=== PATIENT | female | born 1960 | race Caucasian/White ===

== ENCOUNTER 2017-10-11 20:13 | Emergency (ER) | payer OTHER ==
[~2017-10-11] VITALS: Ht 175.3 cm; Wt 101.2 kg
[~2017-10-11 20:13] MED LIST: ACTOS; ALBIPROI; ALBIPROI INH; ALBU.083IS; ALBU.083IS IH; ALBU3IS INH; ALBU90I INH; ALBU90OI; ALBU90OI INH; AMIT10 PO; AMOCLA875 PO; AMOX500 PO; ASPI325 PO; ASPI81EC; ASPI81EC PO; ATOR80 PO; AZIT250 PO; Albuterol Inhaler IH; Amitriptyline H10 MG PO; Aspirin EC81 MG PO; Bactrim Ds Tab1 EACH PO; CALCAVITDA PO; CARV6.25 PO; CEPH500 PO; CIPR250 PO; CIPR500 PO; CLOP75 PO; CORAL CALCIUM; CYCL10 PO; DIABETIC MEDICATIONS PO; DIAZ10 PO; DIAZ2 PO; DIAZ5 PO; DIPATR PO; DIPATRL PO; DIPH25 PO; DOCU100 PO; DULO30; DULO30 PO; DULO60 PO; Diflucan100 MG PO; Duoneb 2.5-0.5 M3 ML INH; FAMO20 PO; FERR325 PO; FISH1000 PO; FLUC100 PO; FLUC200 PO; FOLI1; FURO20 PO; FURO40 PO; GABA300 PO; GABA300T24 PO; GABA800 PO; GEMF600 PO; GLIM2 PO; GLIP10; GLIP10ER; HYDACE5 PO; HYDACE5325 PO; HYDHCL25 PO; IBUP600 PO; IBUP800 PO; INSR10I SC; INSU100I6 SC; INSUASPI SC; INSULANI SC; INSULANPEN SC; INSULIN-REGULAR; LAMZIDT PO; LEVFLO500 PO; LEVO750 PO; LISI20; LISI20 PO; LORA1; LORA1 PO; LORA2; MAGOXI400 PO; MECL25 PO; MEDR10 PO; METF500; METF850; METH10; METH10 PO; METH5; METH5 PO; METR500 PO; MONT10T PO; MULVITA; Mirapex0.5 MG PO; Mucinex600 MG PO; NAPR500; NAPR500 PO; NAPR500EC PO; NAPR550 PO; NEBI5 PO; NITR.4SL SL; NITR100 PO; NITR100CA PO; NITRSPRAY; NITRSPRAY SL; NYST100SU MT; Nitrostat0.4 MG SL; Norco 5-325 Ta1 EACH PO; ONDA4ODT MM; ONDA8 PO; OXYACE5T PO; OXYACE7.5T PO; OXYB5 PO; OXYC10ER PO; Omeprazole20 M1; PANT40 PO; PENVK500 PO; PHENA200 PO; PIOG15; PIOG30 PO; POTA10T PO; POTCHL20ER PO; PRAM.125 PO; PRAM.5 PO; PRAV10; PRED10 PO; PRED20 PO; PRED5 PO; PREDNISONE PO; PROC25S PR; PRODEXEL PO; PROM25 PO; PROM25S PR; Percocet 5-3251 EACH PO; Prednisone20 MG PO; Prilosec20 MG PO; Pyridium200 MG PO; RANI150 PO; REGULAR INSULIN SS; ROPI.25 PO; ROSU5 PO; RXDIPATR PO; RXLORA1 PO; RXNAPNA550 PO; RXOXYACE PO; Robaxin500 MG PO; SUCR1 PO; SULTRIDS PO; TIOT18 IH; TRAM50 PO; TRIA80TC TOP; Ultram50 MG PO; VENL75; VENL75ER; VICODIN; Veetids 500500 MG PO; Ventolin Soln3 ML INH; Vibramycin100 MG PO; WARF5 PO; Zithromax250 MG PO; Zofran Odt8 MG SL; Zofran4 MG PO; [UNRECOGNIZED DRUG - OTHER]; [UNRECOGNIZED DRUG - OTHER] PO; [UNRECOGNIZED DRUG - REMARK]; [UNRECOGNIZED DRUG - REMARK]
[2017-11-01] MEDS ORDERED: NITR100 PO (18:22)
[2017-11-01] MEDS ORDERED: Norco 5-325 Ta1 EACH PO (18:22)
[2018-04-10] MEDS ORDERED: METO50ER PO (10:42)
[2018-04-10] MEDS ORDERED: Nicoderm Cq1 EAC1 TD (10:42)
[2018-04-10] MEDS ORDERED: LEVO750 PO (11:43)
[2018-08-19] MEDS ORDERED: Detrol LA4 MG PO (19:55)
== END 2017-10-11 20:44 | disposition home or self-care (01) ==
LOC: ER 20:13
DX: I48.91 Unspecified atrial fibrillation (principal); I10 Essential (primary) hypertension; E11.40 Type 2 diabetes mellitus with diabetic neuropathy, unspecified; E66.01 Morbid (severe) obesity due to excess calories; Z68.32 Body mass index [BMI] 32.0-32.9, adult; J44.9 Chronic obstructive pulmonary disease, unspecified; Z86.73 Personal history of transient ischemic attack (TIA), and cerebral infarction without residual deficits; D50.9 Iron deficiency anemia, unspecified; F32.9 Major depressive disorder, single episode, unspecified; E78.1 Pure hyperglyceridemia; G51.0 Bell's palsy; G25.81 Restless legs syndrome; Z87.891 Personal history of nicotine dependence; Z98.890 Other specified postprocedural states
CPT/HCPCS: 93005; 93010; 99283

== ENCOUNTER 2017-10-30 19:14 | Emergency (ER) | payer OTHER ==
[~2017-10-30] VITALS: Ht 177.8 cm; Wt 122.5 kg
[2017-10-30 19:42] LABS: Base Excess Venous 1.4 mmol/L; Bicarbonate Venous 24.9 mmol/L (24.0-30.0); PCO2 Venous 43.3 mmHg (38-42); PO2 Venous 43.1 mmHg (38-42); pH Blood Venous 7.39 (7.34-7.37)
[2017-10-30 19:45] LABS: BASOPHILS ABSOLUTE AUTO 0.06 K/mm3 (0.00-0.23); BASOPHILS PERCENT AUTO 1 % (0-2); EOSINOPHILS ABSOLUTE AUTO 0.11 K/mm3 (0.00-0.68); EOSINOPHILS PERCENT AUTO 1 % (0-6); Hematocrit 46.8 % (33.0-51.0); Hemoglobin 15.9 g/dL (11.5-16.0); IMMATURE GRAN ABSOLUTE AUTO 0.05 K/mm3 (0.00-0.10); IMMATURE GRAN PERCENT AUTO 1 % (0-1); LYMPHOCYTES ABSOLUTE AUTO 2.55 K/mm3 (0.84-5.20); LYMPHOCYTES PERCENT AUTO 32 % (21-46); MONOCYTES ABSOLUTE AUTO 0.71 K/mm3 (0.16-1.47); MONOCYTES PERCENT AUTO 9 % (4-13); Mean Corpuscular HGB 31.4 pg (26.0-34.0); Mean Corpuscular Volume 92 fL (80-100); Mean Platelet Volume 10.3 fL (9.1-12.4); NEUTROPHILS PERCENT AUTO 57 % (41-73); Platelet Count 297 K/mm3 (150-400); RDW Standard Deviation 47.6 fL (35.1-46.3); Red Blood Cell Count 5.07 M/mm3 (3.80-5.20); White Blood Cell Count 8.08 K/mm3 (4.00-11.30)
[2017-10-30 20:05] LABS: Alanine Aminotransfer (ALT/SGP 29 U/L (12-78); Albumin, Blood 3.7 g/dL (3.4-5.0); Albumin/Globulin Ratio 0.9 (0.8-1.8); Alk Phos 96 U/L (50-136); Anion Gap 11 mmol/L (6-16); Aspartate Aminotrans (AST/SGOT 16 U/L (12-37); Bilirubin, Total 0.3 mg/dL (0.1-1.0); Blood Urea Nitrogen 10 mg/dL (8-24); Bun/Creatinine Ratio 22.3 (12.0-20.0); CO2, Blood 24 mmol/L (21-32); Calcium, Blood 8.9 mg/dL (8.5-10.1); Chloride, Blood 102 mmol/L (98-108); Creatinine, Blood 0.45 mg/dL (0.40-1.00); Glomerular Filtration Rate >60 (60-); Glucose, Blood 388 mg/dL (70-99); Potassium, Blood 3.9 mmol/L (3.5-5.5); Sodium, Blood 137 mmol/L (136-145); Total Protein, Blood 7.7 g/dL (6.4-8.2)
[2017-10-30] MEDS ORDERED: WARF6 PO (20:30)
[2017-11-01] MEDS ORDERED: Norco 5-325 Ta1 EACH PO (18:22)
[2017-11-01] MEDS ORDERED: NITR100 PO (18:22)
[2018-04-10] MEDS ORDERED: Nicoderm Cq1 EAC1 TD (10:42)
[2018-04-10] MEDS ORDERED: METO50ER PO (10:42)
[2018-04-10] MEDS ORDERED: LEVO750 PO (11:43)
[2018-08-19] MEDS ORDERED: Detrol LA4 MG PO (19:55)
== END 2017-10-30 21:37 | disposition home or self-care (01) ==
LOC: ER 19:14
PROVIDERS: Emergency Medicine
DX: E11.65 Type 2 diabetes mellitus with hyperglycemia (principal); E86.0 Dehydration; R05 Cough; E11.40 Type 2 diabetes mellitus with diabetic neuropathy, unspecified; I10 Essential (primary) hypertension; F32.9 Major depressive disorder, single episode, unspecified; F41.9 Anxiety disorder, unspecified; E66.01 Morbid (severe) obesity due to excess calories; J44.9 Chronic obstructive pulmonary disease, unspecified; I48.91 Unspecified atrial fibrillation; Z88.6 Allergy status to analgesic agent; Z88.8 Allergy status to other drugs, medicaments and biological substances; Z79.899 Other long term (current) drug therapy; Z79.01 Long term (current) use of anticoagulants; Z79.4 Long term (current) use of insulin; Z79.52 Long term (current) use of systemic steroids; F17.200 Nicotine dependence, unspecified, uncomplicated
CPT/HCPCS: 36415; 71046; 80053; 82803; 82947; 85025; 93005; 93010; 96360; 99284; J7030

== ENCOUNTER 2017-11-01 16:09 | Emergency (ER) | END 2017-11-01 19:20 | disposition home or self-care (01) ==

== ENCOUNTER 2017-11-21 11:06 | Emergency (ER) | payer OTHER ==
[~2017-11-21] VITALS: Ht 175.3 cm; Wt 99.8 kg
[~2017-11-21 11:06] MED LIST changes: +WARF6 PO
[2017-11-21 12:34] LABS: BASOPHILS ABSOLUTE AUTO 0.06 K/mm3 (0.00-0.23); BASOPHILS PERCENT AUTO 1 % (0-2); EOSINOPHILS ABSOLUTE AUTO 0.14 K/mm3 (0.00-0.68); EOSINOPHILS PERCENT AUTO 2 % (0-6); Hematocrit 42.2 % (33.0-51.0); Hemoglobin 13.5 g/dL (11.5-16.0); IMMATURE GRAN ABSOLUTE AUTO 0.03 K/mm3 (0.00-0.10); IMMATURE GRAN PERCENT AUTO 0 % (0-1); LYMPHOCYTES ABSOLUTE AUTO 2.22 K/mm3 (0.84-5.20); LYMPHOCYTES PERCENT AUTO 27 % (21-46); MONOCYTES ABSOLUTE AUTO 0.58 K/mm3 (0.16-1.47); MONOCYTES PERCENT AUTO 7 % (4-13); Mean Corpuscular HGB 30.8 pg (26.0-34.0); Mean Corpuscular Volume 96 fL (80-100); Mean Platelet Volume 10.9 fL (9.1-12.4); NEUTROPHILS ABSOLUTE AUTO 5.12 K/mm3 (1.96-9.15); NEUTROPHILS PERCENT AUTO 63 % (41-73); Platelet Count 268 K/mm3 (150-400); RDW Coefficient Variation 14.6 % (11.7-14.2); RDW Standard Deviation 50.9 fL (35.1-46.3); Red Blood Cell Count 4.39 M/mm3 (3.80-5.20); White Blood Cell Count 8.15 K/mm3 (4.00-11.30)
[2017-11-21 12:45] LABS: Alanine Aminotransfer (ALT/SGP 20 U/L (12-78); Albumin, Blood 3.4 g/dL (3.4-5.0); Alk Phos 79 U/L (50-136); Anion Gap 7 mmol/L (6-16); Aspartate Aminotrans (AST/SGOT 16 U/L (12-37); Bilirubin, Total 0.3 mg/dL (0.1-1.0); Blood Urea Nitrogen 14 mg/dL (8-24); Bun/Creatinine Ratio 28.2 (12.0-20.0); CO2, Blood 27 mmol/L (21-32); Calcium, Blood 8.6 mg/dL (8.5-10.1); Chloride, Blood 110 mmol/L (98-108); Globulin, Blood 3.5 g/dL (2.2-4.0); Glomerular Filtration Rate >60 (60-); Glucose, Blood 142 mg/dL (70-99); International Normalized Ratio 3.33; Sodium, Blood 144 mmol/L (136-145); Total Protein, Blood 6.9 g/dL (6.4-8.2)
[2017-11-21] MEDS ORDERED: GEMF600 PO (13:25)
[2017-11-21] MEDS ORDERED: GLIP5 PO (13:25)
[2017-11-21] MEDS ORDERED: MELO7.5 PO (13:25)
[2017-11-21] MEDS ORDERED: OXYB5 PO (13:26)
[2017-11-21] MEDS ORDERED: Omeprazole20 M1 (13:26)
[2017-11-21 13:57] LABS: Bilirubin, Urine Neg (Neg); Blood, Urine Neg (Neg); Glucose Qualitative, Urine Neg (Neg); Ketones, Urine Neg (Neg); Leukocyte Esterase, Urine 1+ (Neg); Nitrite, Urine Neg (Neg); Protein, Urine Neg (Neg); Urobilinogen, Urine NORM (Normal)
[2017-11-21 14:08] LABS: Appearance, Urine Clear (Clear); Color, Urine Yellow (P-Yellow)
[2017-11-21 14:09] LABS: Bacteria Few /hpf; Red Blood Cells, Urine 0-2 /hpf (0-2); Squamous Epithelial Cells Few /hpf (Few)
[2017-11-21 14:10] LABS: U Amphetamine Screen Not Detected; U Barbituate Screen Not Detected; U Benzodiazapine Screen Not Detected; U Buprenorphine Screen Not Detected; U Cannabinoids Screen Not Detected; U Cocaine Screen Not Detected; U Methadone Screen Not Detected; U Methamphetamine Screen Not Detected; U Opiates Screen Not Detected; U Oxycodone Screen Not Detected; U Phencyclidine Screen Not Detected; U Propoxyphene Screen Not Detected
[2018-04-10] MEDS ORDERED: Nicoderm Cq1 EAC1 TD (10:42)
[2018-04-10] MEDS ORDERED: METO50ER PO (10:42)
[2018-04-10] MEDS ORDERED: LEVO750 PO (11:43)
[2018-08-19] MEDS ORDERED: Detrol LA4 MG PO (19:55)
== END 2017-11-21 14:25 | disposition home or self-care (01) ==
LOC: ER 11:06
PROVIDERS: Emergency Medicine
DX: R42 Dizziness and giddiness (principal); J44.9 Chronic obstructive pulmonary disease, unspecified; E11.9 Type 2 diabetes mellitus without complications; F17.210 Nicotine dependence, cigarettes, uncomplicated; Z91.048 Other nonmedicinal substance allergy status; Z88.5 Allergy status to narcotic agent; Z79.899 Other long term (current) drug therapy; Z79.01 Long term (current) use of anticoagulants; Z79.4 Long term (current) use of insulin; Z86.73 Personal history of transient ischemic attack (TIA), and cerebral infarction without residual deficits
CPT/HCPCS: 36415; 51701; 70450; 71046; 80053; 81001; 83880; 85025; 85610; 87086; 93005; 93010; 99284

== ENCOUNTER → 2017-11-28 | Outpatient (CLI) | payer OTHER ==
[~2017-11-28] MED LIST changes: +Detrol LA4 MG PO; +GLIP5 PO; +MELO7.5 PO; +METO50ER PO; +Nicoderm Cq1 EAC1 TD
== END | disposition home or self-care (01) ==
LOC: LAB 15:15
DX: N39.0 Urinary tract infection, site not specified (principal)
CPT/HCPCS: 87077; 87086; 87186

== ENCOUNTER → 2018-01-16 | Outpatient (CLI) | payer OTHER ==
[~2018-01-16] MED LIST changes: -Detrol LA4 MG PO; -METO50ER PO; -Nicoderm Cq1 EAC1 TD
[2018-01-16 10:57] LABS: Source, Urine Clean Catch
[2018-01-16 12:44] LABS: Bilirubin, Urine Neg (Neg); Blood, Urine 4+ (Neg); Glucose Qualitative, Urine 3+ (Neg); Ketones, Urine Neg (Neg); Leukocyte Esterase, Urine 2+ (Neg); Nitrite, Urine Neg (Neg); Protein, Urine 1+ (Neg); Specific Gravity, Urine 1.025 (1.003-1.022); Urobilinogen, Urine NORM (Normal)
[2018-01-16 12:54] LABS: Appearance, Urine Cloudy (Clear); Color, Urine Yellow (P-Yellow)
[2018-01-16 13:00] LABS: Amorphous Mod (0-Heavy); Bacteria Few /hpf; Squamous Epithelial Cells Few /hpf (Few)
== END ==
LOC: LAB 09:10 → LAB SHORT 09:10
PROVIDERS: Nurse Practitioner Family
DX: R35.0 Frequency of micturition (principal)
CPT/HCPCS: 81001

== ENCOUNTER 2018-03-24 08:38 | Emergency (ER) | payer OTHER ==
[~2018-03-24] VITALS: Ht 175.3 cm; Wt 117.9 kg
[2018-03-24 09:23] LABS: BASOPHILS ABSOLUTE AUTO 0.07 K/mm3 (0.00-0.23); BASOPHILS PERCENT AUTO 1 % (0-2); EOSINOPHILS PERCENT AUTO 2 % (0-6); Hematocrit 43.1 % (33.0-51.0); Hemoglobin 14.6 g/dL (11.5-16.0); IMMATURE GRAN ABSOLUTE AUTO 0.06 K/mm3 (0.00-0.10); IMMATURE GRAN PERCENT AUTO 1 % (0-1); LYMPHOCYTES ABSOLUTE AUTO 3.58 K/mm3 (0.84-5.20); LYMPHOCYTES PERCENT AUTO 35 % (21-46); MONOCYTES ABSOLUTE AUTO 0.73 K/mm3 (0.16-1.47); MONOCYTES PERCENT AUTO 7 % (4-13); Mean Corpuscular HGB 31.5 pg (26.0-34.0); Mean Corpuscular HGB Conc 33.9 g/dL (31.5-36.5); Mean Corpuscular Volume 93 fL (80-100); Mean Platelet Volume 11.7 fL (9.1-12.4); NEUTROPHILS ABSOLUTE AUTO 5.73 K/mm3 (1.96-9.15); NEUTROPHILS PERCENT AUTO 55 % (41-73); Platelet Count 296 K/mm3 (150-400); RDW Coefficient Variation 13.4 % (11.7-14.2); RDW Standard Deviation 45.2 fL (35.1-46.3); Red Blood Cell Count 4.64 M/mm3 (3.80-5.20); White Blood Cell Count 10.37 K/mm3 (4.00-11.30)
[2018-03-24 10:05] LABS: Alanine Aminotransfer (ALT/SGP 19 U/L (12-78); Albumin, Blood 3.2 g/dL (3.4-5.0); Albumin/Globulin Ratio 0.9 (0.8-1.8); Alk Phos 86 U/L (50-136); Anion Gap 8 mmol/L (6-16); Aspartate Aminotrans (AST/SGOT 11 U/L (12-37); Bilirubin, Total 0.3 mg/dL (0.1-1.0); Blood Urea Nitrogen 8 mg/dL (8-24); Bun/Creatinine Ratio 16.8 (12.0-20.0); CO2, Blood 27 mmol/L (21-32); Calcium, Blood 8.4 mg/dL (8.5-10.1); Chloride, Blood 109 mmol/L (98-108); Creatinine, Blood 0.48 mg/dL (0.40-1.00); Globulin, Blood 3.4 g/dL (2.2-4.0); Glomerular Filtration Rate >60 (60-); Glucose, Blood 85 mg/dL (70-99); Potassium, Blood 3.6 mmol/L (3.5-5.5); Sodium, Blood 144 mmol/L (136-145); Total Protein, Blood 6.6 g/dL (6.4-8.2); Troponin I <0.015 ng/mL (0.000-0.040)
[2018-03-24] MEDS ORDERED: Prednisone20 MG PO (10:28)
== END 2018-03-24 10:59 | disposition home or self-care (01) ==
LOC: ER 08:38
PROVIDERS: Emergency Medicine
DX: J44.1 Chronic obstructive pulmonary disease with (acute) exacerbation (principal); Z91.048 Other nonmedicinal substance allergy status; Z88.6 Allergy status to analgesic agent; Z79.899 Other long term (current) drug therapy; Z79.01 Long term (current) use of anticoagulants; Z79.4 Long term (current) use of insulin; Z79.52 Long term (current) use of systemic steroids; E11.9 Type 2 diabetes mellitus without complications; J44.9 Chronic obstructive pulmonary disease, unspecified; F17.210 Nicotine dependence, cigarettes, uncomplicated
CPT/HCPCS: 36415; 71046; 80053; 82947; 84484; 85025; 93005; 93010; 94644; 96374; 99285-25; J2930

== ENCOUNTER 2018-07-12 12:15 | Emergency (ER) | payer OTHER ==
[~2018-07-12] VITALS: Ht 175.3 cm; Wt 107.0 kg
[~2018-07-12 12:15] MED LIST changes: +METO50ER PO; +Nicoderm Cq1 EAC1 TD
== END 2018-07-12 13:55 | disposition home or self-care (01) ==
LOC: ER 12:15
DX: M79.632 Pain in left forearm (principal); J44.9 Chronic obstructive pulmonary disease, unspecified; E11.9 Type 2 diabetes mellitus without complications; I48.91 Unspecified atrial fibrillation; F17.210 Nicotine dependence, cigarettes, uncomplicated; Z91.048 Other nonmedicinal substance allergy status; Z88.5 Allergy status to narcotic agent; Z79.899 Other long term (current) drug therapy; Z79.51 Long term (current) use of inhaled steroids; Z79.01 Long term (current) use of anticoagulants; Z79.4 Long term (current) use of insulin; Z86.73 Personal history of transient ischemic attack (TIA), and cerebral infarction without residual deficits; Z86.718 Personal history of other venous thrombosis and embolism
CPT/HCPCS: 29125; 93971; 99283-25

== ENCOUNTER 2018-11-24 20:11 | Emergency (ER) | payer OTHER ==
[~2018-11-24] VITALS: Ht 175.3 cm; Wt 104.3 kg
[~2018-11-24 20:11] MED LIST changes: +Detrol LA4 MG PO; +Macrobid 100 M100 MG PO
[2018-11-24 20:57] LABS: BASOPHILS ABSOLUTE AUTO 0.06 K/mm3 (0.00-0.23); BASOPHILS PERCENT AUTO 1 % (0-2); EOSINOPHILS ABSOLUTE AUTO 0.18 K/mm3 (0.00-0.68); EOSINOPHILS PERCENT AUTO 2 % (0-6); Hematocrit 42.8 % (33.0-51.0); IMMATURE GRAN ABSOLUTE AUTO 0.03 K/mm3 (0.00-0.10); IMMATURE GRAN PERCENT AUTO 0 % (0-1); LYMPHOCYTES ABSOLUTE AUTO 2.02 K/mm3 (0.84-5.20); LYMPHOCYTES PERCENT AUTO 27 % (21-46); MONOCYTES ABSOLUTE AUTO 0.78 K/mm3 (0.16-1.47); MONOCYTES PERCENT AUTO 10 % (4-13); Mean Corpuscular HGB 31.2 pg (26.0-34.0); Mean Corpuscular HGB Conc 32.7 g/dL (31.5-36.5); Mean Corpuscular Volume 95 fL (80-100); Mean Platelet Volume 11.7 fL (9.1-12.4); NEUTROPHILS ABSOLUTE AUTO 4.41 K/mm3 (1.96-9.15); NEUTROPHILS PERCENT AUTO 59 % (41-73); Platelet Count 277 K/mm3 (150-400); RDW Coefficient Variation 13.7 % (11.7-14.2); RDW Standard Deviation 48.6 fL (35.1-46.3); Red Blood Cell Count 4.49 M/mm3 (3.80-5.20); White Blood Cell Count 7.48 K/mm3 (4.00-11.30)
[2018-11-24 21:18] LABS: Troponin I <0.015 ng/mL (0.000-0.040)
[2018-11-24 21:19] LABS: Alanine Aminotransfer (ALT/SGP 26 U/L (12-78); Albumin, Blood 3.2 g/dL (3.4-5.0); Albumin/Globulin Ratio 0.9 (0.8-1.8); Alk Phos 100 U/L (50-136); Anion Gap 7 mmol/L (6-16); Aspartate Aminotrans (AST/SGOT 13 U/L (12-37); Bilirubin, Total 0.1 mg/dL (0.1-1.0); Blood Urea Nitrogen 16 mg/dL (8-24); Bun/Creatinine Ratio 26.6 (12.0-20.0); CO2, Blood 30 mmol/L (21-32); Calcium, Blood 8.7 mg/dL (8.5-10.1); Chloride, Blood 107 mmol/L (98-108); Globulin, Blood 3.6 g/dL (2.2-4.0); Glomerular Filtration Rate >60 (60-); Glucose, Blood 275 mg/dL (70-99); Potassium, Blood 3.7 mmol/L (3.5-5.5); Sodium, Blood 144 mmol/L (136-145); Total Protein, Blood 6.8 g/dL (6.4-8.2)
== END 2018-11-25 00:31 | disposition home or self-care (01) ==
LOC: ER 20:11
PROVIDERS: Emergency Medicine
DX: R07.9 Chest pain, unspecified (principal); E11.9 Type 2 diabetes mellitus without complications; J44.9 Chronic obstructive pulmonary disease, unspecified; Z86.73 Personal history of transient ischemic attack (TIA), and cerebral infarction without residual deficits; Z91.048 Other nonmedicinal substance allergy status; Z88.6 Allergy status to analgesic agent; Z79.899 Other long term (current) drug therapy; Z79.01 Long term (current) use of anticoagulants; Z79.4 Long term (current) use of insulin; F17.200 Nicotine dependence, unspecified, uncomplicated
CPT/HCPCS: 36415; 71046; 80053; 84484; 85025; 93005; 93010; 99285-25

== ENCOUNTER → 2019-02-16 | Outpatient (CLI) | payer OTHER ==
[~2019-02-16] MED LIST changes: +CEFU500T30 PO; +Coreg12.5 MG PO; +DRON400T PO; +GABA100 PO; -GABA300T24 PO; +INSULIN BASAGLAR SC; +METPRE4DP PO; +Nystatin15 GM TOP
[2019-02-17 06:53] LABS: Candida species (DNA Probe) Negative (NEGATIVE); G. vaginalis (DNA Probe) Negative (NEGATIVE); T. vaginalis (DNA Probe) Negative (NEGATIVE)
== END | disposition home or self-care (01) ==
LOC: LAB SHORT 16:50 → LAB 16:50
PROVIDERS: Obstetrics & Gynecology
DX: N76.0 Acute vaginitis (principal)
CPT/HCPCS: 87480; 87510; 87660

== ENCOUNTER 2019-03-07 16:27 | Inpatient (IN) | payer OTHER ==
[~2019-03-07] VITALS: Ht 175.3 cm; Wt 105.2 kg
[~2019-03-07 16:27] MED LIST changes: -CEFU500T30 PO; -Coreg12.5 MG PO; -DRON400T PO; -INSULIN BASAGLAR SC; -METPRE4DP PO
[2019-03-07 16:58] LABS: BASOPHILS ABSOLUTE AUTO 0.11 K/mm3 (0.00-0.23); BASOPHILS PERCENT AUTO 1 % (0-2); EOSINOPHILS ABSOLUTE AUTO 0.22 K/mm3 (0.00-0.68); EOSINOPHILS PERCENT AUTO 2 % (0-6); Hemoglobin 15.6 g/dL (11.5-16.0); IMMATURE GRAN ABSOLUTE AUTO 0.05 K/mm3 (0.00-0.10); IMMATURE GRAN PERCENT AUTO 1 % (0-1); LYMPHOCYTES ABSOLUTE AUTO 3.14 K/mm3 (0.84-5.20); LYMPHOCYTES PERCENT AUTO 30 % (21-46); MONOCYTES ABSOLUTE AUTO 1.02 K/mm3 (0.16-1.47); MONOCYTES PERCENT AUTO 10 % (4-13); Mean Corpuscular HGB 31.3 pg (26.0-34.0); Mean Corpuscular HGB Conc 33.9 g/dL (31.5-36.5); Mean Corpuscular Volume 92 fL (80-100); Mean Platelet Volume 11.5 fL (9.1-12.4); NEUTROPHILS ABSOLUTE AUTO 6.11 K/mm3 (1.96-9.15); NEUTROPHILS PERCENT AUTO 57 % (41-73); Platelet Count 317 K/mm3 (150-400); RDW Coefficient Variation 13.1 % (11.7-14.2); Red Blood Cell Count 4.98 M/mm3 (3.80-5.20); White Blood Cell Count 10.65 K/mm3 (4.00-11.30)
[2019-03-07 17:22] LABS: Alanine Aminotransfer (ALT/SGP 21 U/L (12-78); Albumin, Blood 3.8 g/dL (3.4-5.0); Alk Phos 121 U/L (50-136); Anion Gap 9 mmol/L (6-16); Aspartate Aminotrans (AST/SGOT 12 U/L (12-37); Bilirubin, Total 0.4 mg/dL (0.1-1.0); Blood Urea Nitrogen 13 mg/dL (8-24); Bun/Creatinine Ratio 16.6 (12.0-20.0); CO2, Blood 24 mmol/L (21-32); Calcium, Blood 9.2 mg/dL (8.5-10.1); Chloride, Blood 101 mmol/L (98-108); Creatinine, Blood 0.78 mg/dL (0.40-1.00); Globulin, Blood 3.9 g/dL (2.2-4.0); Glomerular Filtration Rate >60 (60-); Glucose, Blood 451 mg/dL (70-99); Magnesium, Blood 2.2 mg/dL (1.6-2.4); Potassium, Blood 4.2 mmol/L (3.5-5.5); Sodium, Blood 134 mmol/L (136-145); Total Protein, Blood 7.7 g/dL (6.4-8.2); Troponin I <0.015 ng/mL (0.000-0.040)
[2019-03-07 18:43] LABS: Prothrombin Time Results 41.3 Sec (9.7-11.5)
[2019-03-07 18:46] LABS: International Normalized Ratio 4.46
--- NOTE | 2019-03-07 21:00 | NUR ---
ASSUMED CARE RECIEVED REPORT FROM ROSE MARIE GAMEZ IN ER. PT IN AFIB RVR; RATE 100-160. PT DENIES CHEST PAIN, DIZZINESS, AND NAUSEA; PT IS NOT DIAPHORETIC. STABLE BP (SEE VS). PT HAS PATENT IV IN RIGHT AC; SITE WNL. PT ALERT AND ORIENTED X 4. BED LOW AND LOCKED, CALL LIGHT WITHIN REACH.
--- NOTE | 2019-03-08 01:46 | NUR ---
UPDATE PLACED SEIZURE PADS ON BED; PT HAS RESTLESS LEG SYNDROME, OR TURRENTS AND KEEPS KICKING HER LEGS AND HITTING SIDES OF BEDS. PT IS NOW IN NSR, WITH CONTROLLED RATE IN 80'S. DILTIAZEM IS NOW AT 10MG/HR. DOUBLE CHECKED WITH MOLDER OPERATOR, PAOLO Fatima AND SHE AGREES TO TITRATE DOWN DILTIAZEM.
[2019-03-08 03:38] LABS: BASOPHILS PERCENT AUTO 1 % (0-2); EOSINOPHILS ABSOLUTE AUTO 0.24 K/mm3 (0.00-0.68); EOSINOPHILS PERCENT AUTO 2 % (0-6); Hematocrit 43.7 % (33.0-51.0); Hemoglobin 14.4 g/dL (11.5-16.0); IMMATURE GRAN ABSOLUTE AUTO 0.05 K/mm3 (0.00-0.10); IMMATURE GRAN PERCENT AUTO 1 % (0-1); LYMPHOCYTES ABSOLUTE AUTO 3.23 K/mm3 (0.84-5.20); LYMPHOCYTES PERCENT AUTO 32 % (21-46); MONOCYTES ABSOLUTE AUTO 1.04 K/mm3 (0.16-1.47); MONOCYTES PERCENT AUTO 10 % (4-13); Mean Corpuscular HGB 30.8 pg (26.0-34.0); Mean Corpuscular Volume 94 fL (80-100); Mean Platelet Volume 11.2 fL (9.1-12.4); NEUTROPHILS ABSOLUTE AUTO 5.59 K/mm3 (1.96-9.15); NEUTROPHILS PERCENT AUTO 55 % (41-73); Platelet Count 310 K/mm3 (150-400); RDW Coefficient Variation 13.2 % (11.7-14.2); RDW Standard Deviation 45.1 fL (35.1-46.3); Red Blood Cell Count 4.67 M/mm3 (3.80-5.20); White Blood Cell Count 10.25 K/mm3 (4.00-11.30)
[2019-03-08 04:02] LABS: Anion Gap 6 mmol/L (6-16); Blood Urea Nitrogen 15 mg/dL (8-24); Bun/Creatinine Ratio 22.7 (12.0-20.0); CO2, Blood 27 mmol/L (21-32); Calcium, Blood 8.8 mg/dL (8.5-10.1); Chloride, Blood 108 mmol/L (98-108); Creatinine, Blood 0.66 mg/dL (0.40-1.00); Glomerular Filtration Rate >60 (60-); Glucose, Blood 155 mg/dL (70-99); Potassium, Blood 3.8 mmol/L (3.5-5.5); Sodium, Blood 141 mmol/L (136-145)
--- NOTE | 2019-03-08 07:00 | NUR ---
SHIFT SUMMARY PT FINALLY ASLEEP, AFTER A NIGHT FULL OF TOSSING AND TURNING; KICKING/PUNCHING THROUGHOUT NIGHT. SHE REPORTS HAVING RESTLESS LEG SYNDROME AND IT IS SEVERE. SHE CAN'T CONTROLL HERSELF FROM KICKING CONSTANTLY. PT HAS BEEN IN NSR SINCE APPROX. 0030-130. DILTIAZEM IS ON STANDBY; RATE IN THE 80'S. PT DENIED CHEST PAIN, NAUSEA, AND DIZZINESS. PT IS DIAPHORETIC FROM CONSTANTLY THRASHING. PT HAS SEVERE NUMBNESS IN BOTH FEET, AND MODERATE N/T IN HANDS. PT WILL NEED EDUCATION ON MEDICATION ADHERENCE, AND DIABETES MANAGEMENT. SHE WANTS TO LEARN SOMEWHAT, BUT IS NOT NECCESSARILY MOTIVATED TO LEARN. MED REC WILL STILL NEED TO BE FINISHED, BECAUSE SHE DOESN'T REMEMBER EVERYTHING SHE TAKES. BED LOW AND LOCKED, CALL LIGHT WITHIN REACH.
--- NOTE | 2019-03-08 08:23 | NUR ---
Echocardiogram completed.
--- NOTE | 2019-03-08 08:45 | NUR ---
PT PLEASANT COOP A/O DENIES PAIN. SOME WEAKNESS CONTINUES ON LEFT. SHAKINESS NOTED IN LEGS. PT STATES NORMAL. H/R REG, NO MURMER NOTED. SEE TELE STRIP. LUNGS CLEAR INSP, EXP WHEEZES. LOWER. ON R/A. RESP EASY, UNALBORED. BT X4 LAST BM YEST. STATES CONT OF STOOL, BUT INCONT OF URINE SINCE GIVINIG . STATES DOES KNOW AND CAN CALL IF WET. INDEPENDANT IN ROOM. BED IN LOW POSITION, CALL LITE IN REACH, CALLS APPROP.
[2019-03-08 10:24] LABS: International Normalized Ratio 3.76; Prothrombin Time Results 35.3 Sec (9.7-11.5)
--- NOTE | 2019-03-08 10:45 | NUR ---
PT ASLEEP IN CHAIR. HARD TO AWAKEN. LIGHT STERNAL RUB TO AWAKEN. PT STATES MAYBE BLOOD SUGAR TOO LOW. HARD TO KEEP AWAKE. HAD P/T ASSIST ME TO GET PT TO BED. VS 90/52, 98/58 P 73. CBG 344. REMAINS SEDATE. FALLS RIGHT BACK TO SLEEP. NOT GOOD CONTROL MUSCULARLY. ARMS PRESENT SLGHTLY FLAILING. POOR CONTROL PT STATES IS MOSTLY NORMAL FOR HER. CANNOT TELL ME HOW MUCH NEURONTIN SHE TAKES. BUT STATES IS IN JAMAL. CALLED DR ZHANG. LIKELY THAT. LEFT IS STILL WEAKER THAN RT. WANTS BALANCE MEDS MIRAPEX AND SANTURUM HELD THIS AM. CANCELLED ALL BUT S/S INSULIN THIS AM R/T PT STATES NOT TAKING REGULARLY. ONLY ONCE OR TWICE WEEKLY. DR ZHANG SUGGEST CONTINUE MONITOR. APPEARS STABLE. LIKELY NEURONTIN IS CAUSE.
--- NOTE | 2019-03-08 12:11 | NUR ---
PT SLEEPING, AWAKENS TO LIGHT STERNAL RUB. BP 118/82. R 20. POOR CONTROL CONTINUES ON ARMS. ABLE TO BRING UNDER CONTROL BETTER. FALLS BACK TO SLEEP QUICKLY.
--- NOTE | 2019-03-08 13:06 | NUR ---
PT AWAKE AGAIN, EATING LUNCH. GAVE INSULIN. TALKING. STATES FEELING BETTER.
--- NOTE | 2019-03-08 16:41 | NUR ---
Per admit trigger, I met with Luz Marina and her spouse regarding an Advanced Directive. She was tearful when I entered room and the three of us spoke for an hour about her limitations since her stroke 5 years ago. Spouse is under a great deal of stress trying to manage his own business and care for [place]. Both appeared to benefit from having someone provide theraputic listening and gentle career development counselor. Charlotte has a strong shawn and appreciated prayer and spiritual direction. We had an easy rapport. I provided my contact information for out-patient career development counselor as she is clearly experiencing grief with the loss of "who I used to be." Facilitated prayer at bedside. They did not see a need for an AD. I will remain available.
[2019-03-08] MEDS ORDERED: Coreg12.5 MG PO (17:05)
--- NOTE | 2019-03-08 17:25 | NUR ---
CALLED IN NEW RX'S TO [facility].
--- NOTE | 2019-03-08 18:40 | NUR ---
FABY REVIEWED WITH PT AND DAUGHTER. IV PULLED BY CHARGE. PT VERBALIZED UNDERSTANDING OF MEDS AND INSTRUCTIONS. DAUGHTER SIGNED FORMS. PT TO DRESS AND BE ESCORTED SHORTLY
== END 2019-03-08 18:40 | disposition home or self-care (01) | DRG 308 ==
LOC: ER 16:27 → ICUW 18:46 → ICUE 20:25
PROVIDERS: Emergency Medicine; Internal Medicine; ADMIT Internal Medicine
DX: I48.2 Chronic atrial fibrillation (principal); G92 Toxic encephalopathy; E10.40 Type 1 diabetes mellitus with diabetic neuropathy, unspecified; I10 Essential (primary) hypertension; I67.9 Cerebrovascular disease, unspecified; F32.9 Major depressive disorder, single episode, unspecified; E78.5 Hyperlipidemia, unspecified; J44.9 Chronic obstructive pulmonary disease, unspecified; E78.1 Pure hyperglyceridemia; G25.81 Restless legs syndrome; F17.200 Nicotine dependence, unspecified, uncomplicated; Z86.73 Personal history of transient ischemic attack (TIA), and cerebral infarction without residual deficits; Z88.8 Allergy status to other drugs, medicaments and biological substances; Z79.01 Long term (current) use of anticoagulants; Z79.84 Long term (current) use of oral hypoglycemic drugs; Z79.4 Long term (current) use of insulin; Z79.899 Other long term (current) drug therapy
CPT/HCPCS: 36415; 71045; 80048; 80053; 82947; 83735; 84443; 84484; 85025; 85610; 93005; 93010; 93306; 94640; 96365; 96366; 96376; 99285-25; J1815; Q0163

== ENCOUNTER → 2019-03-17 | Outpatient (CLI) | payer OTHER ==
[~2019-03-17] MED LIST changes: +CEFU500T30 PO; +Coreg12.5 MG PO; +DRON400T PO; +INSULIN BASAGLAR SC; +METPRE4DP PO
[2019-03-17 15:11] LABS: Source, Urine Clean Catch
[2019-03-17 18:02] LABS: Bilirubin, Urine Neg (Neg); Blood, Urine Neg (Neg); Glucose Qualitative, Urine 3+ (Neg); Ketones, Urine 1+ (Neg); Leukocyte Esterase, Urine 1+ (Neg); Nitrite, Urine Neg (Neg); Protein, Urine 1+ (Neg); Urobilinogen, Urine NORM (Normal)
[2019-03-17 18:30] LABS: Appearance, Urine Hazy (Clear); Color, Urine Yellow (P-Yellow)
[2019-03-17 18:31] LABS: Bacteria Mod /hpf; Red Blood Cells, Urine 0-2 /hpf (0-2); Squamous Epithelial Cells Many /hpf (Few)
[2019-03-18 09:15] LABS: Candida species (DNA Probe) Positive (NEGATIVE); G. vaginalis (DNA Probe) Positive (NEGATIVE); T. vaginalis (DNA Probe) Negative (NEGATIVE)
== END | disposition home or self-care (01) ==
LOC: LAB 14:34 → LAB SHORT 14:34
PROVIDERS: Obstetrics & Gynecology
DX: N76.0 Acute vaginitis (principal); R82.998 Other abnormal findings in urine
CPT/HCPCS: 81001; 87086; 87480; 87510; 87660

== ENCOUNTER 2019-03-21 03:30 | Emergency (ER) | payer OTHER ==
[~2019-03-21 03:30] MED LIST changes: -CEFU500T30 PO; -DRON400T PO; -INSULIN BASAGLAR SC; -METPRE4DP PO
== END 2019-03-21 04:45 | disposition left against medical advice (07) ==
LOC: ER 03:30
DX: Z53.21 Procedure and treatment not carried out due to patient leaving prior to being seen by health care provider (principal)

== ENCOUNTER 2019-03-21 10:45 | Emergency (ER) | payer OTHER ==
[~2019-03-21] VITALS: Ht 175.3 cm; Wt 104.3 kg
== END 2019-03-21 11:43 | disposition home or self-care (01) ==
LOC: ER 10:45
DX: R59.0 Localized enlarged lymph nodes (principal); Z91.048 Other nonmedicinal substance allergy status; Z88.6 Allergy status to analgesic agent; Z79.899 Other long term (current) drug therapy; Z79.01 Long term (current) use of anticoagulants; Z79.4 Long term (current) use of insulin; E11.40 Type 2 diabetes mellitus with diabetic neuropathy, unspecified; I10 Essential (primary) hypertension; F32.9 Major depressive disorder, single episode, unspecified; F41.9 Anxiety disorder, unspecified; J44.9 Chronic obstructive pulmonary disease, unspecified; Z86.73 Personal history of transient ischemic attack (TIA), and cerebral infarction without residual deficits; I48.91 Unspecified atrial fibrillation; F17.210 Nicotine dependence, cigarettes, uncomplicated
CPT/HCPCS: 93971; 99283-25

== ENCOUNTER 2019-04-06 12:25 | Emergency (ER) | payer OTHER ==
[~2019-04-06] VITALS: Ht 175.3 cm; Wt 108.9 kg
== END 2019-04-06 16:55 | disposition home or self-care (01) ==
LOC: ER 12:25
DX: M16.0 Bilateral primary osteoarthritis of hip (principal); Z91.048 Other nonmedicinal substance allergy status; Z79.899 Other long term (current) drug therapy; Z88.6 Allergy status to analgesic agent; Z79.01 Long term (current) use of anticoagulants; Z79.4 Long term (current) use of insulin; E11.9 Type 2 diabetes mellitus without complications; J44.9 Chronic obstructive pulmonary disease, unspecified; Z86.73 Personal history of transient ischemic attack (TIA), and cerebral infarction without residual deficits; Z87.891 Personal history of nicotine dependence
CPT/HCPCS: 73502; 99284-25; A9270-GY; J1100

== ENCOUNTER 2019-04-08 07:03 | Inpatient (IN) | payer OTHER ==
[~2019-04-08] VITALS: Ht 175.3 cm; Wt 10.0 kg
[2019-04-08 07:21] LABS: BASOPHILS ABSOLUTE AUTO 0.12 K/mm3 (0.00-0.23); BASOPHILS PERCENT AUTO 1 % (0-2); EOSINOPHILS ABSOLUTE AUTO 0.14 K/mm3 (0.00-0.68); EOSINOPHILS PERCENT AUTO 1 % (0-6); Hematocrit 46.1 % (33.0-51.0); Hemoglobin 15.2 g/dL (11.5-16.0); IMMATURE GRAN ABSOLUTE AUTO 0.13 K/mm3 (0.00-0.10); IMMATURE GRAN PERCENT AUTO 1 % (0-1); LYMPHOCYTES ABSOLUTE AUTO 2.49 K/mm3 (0.84-5.20); LYMPHOCYTES PERCENT AUTO 11 % (21-46); MONOCYTES ABSOLUTE AUTO 1.61 K/mm3 (0.16-1.47); MONOCYTES PERCENT AUTO 7 % (4-13); Mean Corpuscular HGB 30.6 pg (26.0-34.0); Mean Corpuscular Volume 93 fL (80-100); Mean Platelet Volume 10.6 fL (9.1-12.4); NEUTROPHILS ABSOLUTE AUTO 18.68 K/mm3 (1.96-9.15); NEUTROPHILS PERCENT AUTO 81 % (41-73); Platelet Count 393 K/mm3 (150-400); RDW Coefficient Variation 12.6 % (11.7-14.2); RDW Standard Deviation 43.2 fL (35.1-46.3); Red Blood Cell Count 4.96 M/mm3 (3.80-5.20); White Blood Cell Count 23.17 K/mm3 (4.00-11.30)
[2019-04-08 07:39] LABS: Alanine Aminotransfer (ALT/SGP 21 U/L (12-78); Albumin, Blood 3.5 g/dL (3.4-5.0); Albumin/Globulin Ratio 0.8 (0.8-1.8); Alk Phos 124 U/L (50-136); Anion Gap 7 mmol/L (6-16); Aspartate Aminotrans (AST/SGOT 15 U/L (12-37); Bilirubin, Total 0.6 mg/dL (0.1-1.0); Blood Urea Nitrogen 21 mg/dL (8-24); Bun/Creatinine Ratio 28.6 (12.0-20.0); CO2, Blood 26 mmol/L (21-32); Calcium, Blood 8.8 mg/dL (8.5-10.1); Chloride, Blood 99 mmol/L (98-108); Creatinine, Blood 0.74 mg/dL (0.40-1.00); Globulin, Blood 4.3 g/dL (2.2-4.0); Glomerular Filtration Rate >60 (60-); Glucose, Blood 491 mg/dL (70-99); Potassium, Blood 4.4 mmol/L (3.5-5.5); Sodium, Blood 132 mmol/L (136-145); Total Protein, Blood 7.8 g/dL (6.4-8.2)
[2019-04-08 07:42] LABS: Prothrombin Time Results 47.6 Sec (9.7-11.5)
[2019-04-08 07:46] LABS: International Normalized Ratio 5.22
[2019-04-08] MEDS ORDERED: DRON400T PO (13:27)
[2019-04-08] MEDS ORDERED: GABA100 PO (13:28)
--- NOTE | 2019-04-08 17:39 | NUR ---
END OF SHIFT; PT ARRIVED TO PCU FROM ER THIS AFTERNOON. SHE AMBULATES WITHOUT ASSIST. USES CALL LIGHT APPROPRIATELY. LUNGS ARE DIMINISHED AND COARSE THROUGHOUT. PT HAS PRODUCTIVE COUGH WITH GREEN PHLEGM NOTED. PER REPORT SHE HAS BEEN SICK X 3 WEEKS. LIVES WITH SPOUSE AT HOME. HAS HAD INCREASINGLY SOB OVER PAST FEW DAYS. SHE HAS HISTORY OF DM2 INSULIN DEPENDANT. SHE IS MORBIDLY OBESE. HAS CHRONIC AFIB, COPD, CVA DEPRESSION, GERD. AT THIS TIME SHE HAS NS RUNNING AT 200ML PER HOUR X 2 BAGS THIS IS THE SECOND BAG. SHE HAS ONE 18GAUGE IV IN HER LEFT AC. HER LAST CHEM BG WAS 402 AND SHE RECEIVED 12 UNITS INSULIN. HER SPOUSE BROUGHT HER IN BURGERKING WITH A DIET DRINK FOR DINNER. SPOUSE IS CAUTIONED TO CHECK WITH RN PRIOR TO BRINGING IN OUTSIDE FOOD. HER VERBALIZED UNDERSTANDING. WILL CONTINUE TO MONITOR THIS PATEINT UNTIL REPORT AND HAND OFF TO NOC SHIFT RN.
--- NOTE | 2019-04-08 20:35 | NUR ---
PATIENT BGL IS 437 ASKED PATIENT WHAT SHE TAKES AT HOME. STATES SHE TAKES A SLIDING SCALE AND 60 UNITS OF BASAGLAR BID. PATIENT STATES SHE WAS IN THE 500'S THIS AM AND TOOK HER 60 UNITS THIS MORNING. CALLED DR. SHEN WHO ORDERED FOR LANTUS 60 UNITS BID AND CHANGED INSULIN TO HIGH SCALE. GIVE ONE TIME DOSE OF HUMALOG 14 UNITS NOW. NO FURTHER ORDERS TAKEN.
[2019-04-09] MEDS ORDERED: INSULIN BASAGLAR SC (00:39)
[2019-04-09 03:46] LABS: BASOPHILS ABSOLUTE AUTO 0.04 K/mm3 (0.00-0.23); BASOPHILS PERCENT AUTO 0 % (0-2); EOSINOPHILS ABSOLUTE AUTO 0.02 K/mm3 (0.00-0.68); EOSINOPHILS PERCENT AUTO 0 % (0-6); Hematocrit 40.2 % (33.0-51.0); IMMATURE GRAN ABSOLUTE AUTO 0.09 K/mm3 (0.00-0.10); IMMATURE GRAN PERCENT AUTO 1 % (0-1); LYMPHOCYTES ABSOLUTE AUTO 2.01 K/mm3 (0.84-5.20); LYMPHOCYTES PERCENT AUTO 13 % (21-46); MONOCYTES ABSOLUTE AUTO 0.91 K/mm3 (0.16-1.47); MONOCYTES PERCENT AUTO 6 % (4-13); Mean Corpuscular HGB 30.4 pg (26.0-34.0); Mean Corpuscular HGB Conc 32.3 g/dL (31.5-36.5); Mean Corpuscular Volume 94 fL (80-100); NEUTROPHILS ABSOLUTE AUTO 12.35 K/mm3 (1.96-9.15); NEUTROPHILS PERCENT AUTO 80 % (41-73); Platelet Count 350 K/mm3 (150-400); RDW Coefficient Variation 12.8 % (11.7-14.2); RDW Standard Deviation 43.9 fL (35.1-46.3); Red Blood Cell Count 4.28 M/mm3 (3.80-5.20); White Blood Cell Count 15.42 K/mm3 (4.00-11.30)
[2019-04-09 04:06] LABS: Anion Gap 6 mmol/L (6-16); Blood Urea Nitrogen 21 mg/dL (8-24); Bun/Creatinine Ratio 30.6 (12.0-20.0); CO2, Blood 25 mmol/L (21-32); Calcium, Blood 8.4 mg/dL (8.5-10.1); Chloride, Blood 106 mmol/L (98-108); Creatinine, Blood 0.69 mg/dL (0.40-1.00); Glomerular Filtration Rate >60 (60-); Glucose, Blood 406 mg/dL (70-99); Potassium, Blood 4.2 mmol/L (3.5-5.5); Sodium, Blood 137 mmol/L (136-145)
--- NOTE | 2019-04-09 05:34 | NUR ---
PATIENT HAS HAD TROUBLE SLEEPING, WHICH SHE STATES IS NORMAL. PATIENT STATES SHE HAS RESTLESS LEG SYNDROME. PATIENT LEGS AND ARMS RANDOMLY STRIKE OUT HARD ON THE BED. PLACED SEIZURE PADS AT THE BASE BOARD TO HELP PREVENT INJURY. PATIENT STATES THAT SHE OFTEN WAKES UP WITH BRUISES DUE TO HER THRASHING IN BED AND IS NO LONGER ABLE TO SLEEP IN THE SAME BED HER DUE TO HOW VIOLENT SHE GETS. PATIENT INDEPENDENT IN THE ROOM. DENIES SHORTNESS OF BREATH.
--- NOTE | 2019-04-09 05:51 | NUR ---
PATIENT COMPLAINING OF PAIN IN LEGS AND WOULD LIKE APAP. CALLED DR. HOWE WHO ORDERED APAP 650MG QIDPRN FOR PAIN.
--- NOTE | 2019-04-09 17:31 | NUR ---
END OF SHIFT; PT HAD NO ACUTE CHANGES IN CONDITION NOTED TODAY. SHE REMAINS ON BEDREST. ONLY GETTING UP TO USE BATHROOM WITHOIUT ASSIST. SHE IS PLEASANT AND COOPERATIVE WITH CARE. SPOUSE BRINGS IN FAST FOOD FOR PATIENT TO EAT INBETWEEN MEALS AND HER BLOOD SUGARS REFLECT THIS. PT IS PROVIDED WITH EDUCATION AND IT IS NOTED THAT DIET IS ORDERED CARDIAC AND NOT DIABETIC. VITAL SIGNS ARE STABLE AND PT IS NOT FEBRILE DURING DAY. SHE HAS NON PRODUCTIVE COUGH THIS AFTERNOON. WILL CONTINUE TO MONITOR THIS PATIENT CLOSELY UNTIL REPORT AND HAND OFF TO NOC SHIFT RN.
--- NOTE | 2019-04-09 22:30 | NUR ---
2230: PT SHOWERED IND AND IV DRESSING CHANGED AFTERWARDS; MAINTAINS PATENCY AND IS WRAPPED WITH COBAN TO STABALIZE. A&O, STEADY ON FEET, DENIES SOB WHILE UP IN ROOM. CALL LIGHT IN REACH.
--- NOTE | 2019-04-10 06:50 | NUR ---
SUMMARY: ADMIT DAY 3 RESPIRATORY FAILURE ON HOSPITAL SERVICE; NO ACUTE CHANGES THIS SHIFT. VSS, AFEBRILE, MAINTAINS SPO2 >92% ON ROOM AIR WITH ACTIVITY IN ROOM. SLEPT WELL THIS SHIFT DESPITE CHRONIC LEG PAIN MANAGED WITH TYLENOL. ANTICIPATE DC HOME LATER THIS DAY.
[2019-04-10 16:38] LABS: Bilirubin, Urine Neg (Neg); Blood, Urine Neg (Neg); Glucose Qualitative, Urine 2+ (Neg); Ketones, Urine Neg (Neg); Leukocyte Esterase, Urine 2+ (Neg); Nitrite, Urine Neg (Neg); Protein, Urine Neg (Neg); Urobilinogen, Urine NORM (Normal)
[2019-04-10 16:46] LABS: Color, Urine Pale Yellow (P-Yellow)
[2019-04-10 16:47] LABS: Appearance, Urine Clear (Clear)
[2019-04-10 16:48] LABS: Bacteria Rare /hpf; Red Blood Cells, Urine 0-2 /hpf (0-2); Squamous Epithelial Cells Few /hpf (Few)
--- NOTE | 2019-04-10 17:39 | NUR ---
SHIFT SUMMARY PT RESTING IN BED THROUGHOUT THE DAY. VSS. ALERT AND ORIENTED X3. LUNG SOUNDS EXPIRATORY COARSENESS IN ALL AVILES. NSR RATE 78 PER TELEMETRY. NUMBNESS / TINGLING TO BLE. TRACE EDEMA TO BLE. C/O 7/10 LEFT LEG PAIN, MEDICATED WITH PRN PAIN MEDS, SEE EMAR. PT AMBULATING INDEPENDENTLY TO BATHROOM. C/O BURNING WHEN SHE URINATES, UA CULT IF SENT PER ORDERS. WILL CONTINUE TO MONITOR.
--- NOTE | 2019-04-10 19:30 | NUR ---
ASSUMED CARE PT IN ROOM RESTING COMFORTABLY W/ FAMILY AT BEDSIDE. REPORT6 TAKEN FROM DAY SHIFT RN W/ NO ACUTE CHANGES IN PT STATUS. PT BEING KEPT OVERNIGHT D/T CONTINUED PAIN IN L LEG. PT HAS KPAD IN PLACE AND IS BEING TREATED PER EMAR FOR PAIN. PT IS INDEPENDENT IN ROOM AND DENIES OTHER NEEDS. RESP EVEN UNLBAORED ON RA W/ SATS >92%. PIV IS SL AT THIS TIME. DENIES CP OR SOB. CALL LIGHT IS IN REACH.
--- NOTE | 2019-04-10 20:40 | NUR ---
HIGH BLOOD SUGAR PROVIDER NOTIFED ABOUT HIGH BLOOD SUGAR. 4 UNIT ONE TIME DOSE ORDERED WITH REPEAT SUGAR AT 2HOURS.
[2019-04-11 04:12] LABS: International Normalized Ratio 1.35; Prothrombin Time Results 13.9 Sec (9.7-11.5)
--- NOTE | 2019-04-11 06:06 | NUR ---
SHIFT SUMMARY PT SLEEPING IN ROOM COMFORTABLY AT THIS TIME. NO ACUTE CHANGES IN STATUS T/O NIGHT. PT REMAINED INDEPENDENT IN ROOM. KPAD TO LE LEG RELEIVED PT PAIN. DENIED OTHER NEEDS. RESP EVEN UNLABORED ON RA W/ SATS >92%. DENIES OTHER NEEDS AT THIS TIME. CALL LIGHT IN REACH.
[2019-04-11] MEDS ORDERED: AZIT250 PO (10:52)
[2019-04-11] MEDS ORDERED: PRED20 PO (10:53)
[2019-04-11] MEDS ORDERED: CEFU500T30 PO (10:54)
--- NOTE | 2019-04-11 12:22 | NUR ---
DISCHARGE NOTE PT STABLE FOR DISCHARGE. IV REMOVED. DISCHARGE INSTRUCTIONS AND DISCHARGE MEDICATIONS REVIEWED WITH PT. PT VERBALIZES UNDERSTANDING AND DENIES QUESTIONS. PT DISCHARGED WITH BELONGINGS TO WAITING CAR.
== END 2019-04-11 12:19 | disposition home or self-care (01) | DRG 871 ==
LOC: ER 07:03 → PCU 08:59 → ERHOLD 08:59 → PCU 14:00
PROVIDERS: Emergency Medicine; ADMIT Hospitalist
DX: A41.9 Sepsis, unspecified organism (principal); J96.01 Acute respiratory failure with hypoxia; J18.9 Pneumonia, unspecified organism; J44.1 Chronic obstructive pulmonary disease with (acute) exacerbation; E87.1 Hypo-osmolality and hyponatremia; J44.0 Chronic obstructive pulmonary disease with (acute) lower respiratory infection; Z79.01 Long term (current) use of anticoagulants; Z79.4 Long term (current) use of insulin; I48.2 Chronic atrial fibrillation; E78.5 Hyperlipidemia, unspecified; E11.9 Type 2 diabetes mellitus without complications; I10 Essential (primary) hypertension; Z68.35 Body mass index [BMI] 35.0-35.9, adult; E66.01 Morbid (severe) obesity due to excess calories; Z86.73 Personal history of transient ischemic attack (TIA), and cerebral infarction without residual deficits; Z87.891 Personal history of nicotine dependence; K21.9 Gastro-esophageal reflux disease without esophagitis; F32.9 Major depressive disorder, single episode, unspecified; E86.1 Hypovolemia; R10.30 Lower abdominal pain, unspecified; Z91.14 Patient's other noncompliance with medication regimen
CPT/HCPCS: 36415; 71046; 71250; 73502; 76857; 80048; 80053; 81001; 82947; 83605; 83880; 84145; 85025; 85610; 85730; 87040; 87086; 93005; 93010; 94640; 94760; 96361; 96365; 96366; 96367; 96375; 99285-25; A9270; J0456; J0696; J2405; J7030; J7050; J7512

== ENCOUNTER 2019-04-20 03:26 | Emergency (ER) | payer OTHER ==
[~2019-04-20] VITALS: Ht 175.3 cm; Wt 108.9 kg
[~2019-04-20 03:26] MED LIST changes: +CEFU500T30 PO; +DRON400T PO; +INSULIN BASAGLAR SC
== END 2019-04-20 04:19 | disposition home or self-care (01) ==
LOC: ER 03:26
DX: M25.552 Pain in left hip (principal); Z91.048 Other nonmedicinal substance allergy status; Z88.6 Allergy status to analgesic agent; Z79.01 Long term (current) use of anticoagulants; Z79.899 Other long term (current) drug therapy; Z79.4 Long term (current) use of insulin; Z79.52 Long term (current) use of systemic steroids; E11.9 Type 2 diabetes mellitus without complications; J44.9 Chronic obstructive pulmonary disease, unspecified; Z86.73 Personal history of transient ischemic attack (TIA), and cerebral infarction without residual deficits; Z87.891 Personal history of nicotine dependence
CPT/HCPCS: 99283; A9270

== ENCOUNTER 2019-05-11 18:01 | Emergency (ER) | payer OTHER ==
[~2019-05-11] VITALS: Ht 177.8 cm; Wt 104.3 kg
[2019-05-11 19:04] LABS: BASOPHILS PERCENT AUTO 1 % (0-2); EOSINOPHILS ABSOLUTE AUTO 0.25 K/mm3 (0.00-0.68); EOSINOPHILS PERCENT AUTO 2 % (0-6); Hematocrit 42.5 % (33.0-51.0); Hemoglobin 14.2 g/dL (11.5-16.0); IMMATURE GRAN ABSOLUTE AUTO 0.04 K/mm3 (0.00-0.10); IMMATURE GRAN PERCENT AUTO 0 % (0-1); LYMPHOCYTES ABSOLUTE AUTO 2.96 K/mm3 (0.84-5.20); LYMPHOCYTES PERCENT AUTO 24 % (21-46); MONOCYTES ABSOLUTE AUTO 0.83 K/mm3 (0.16-1.47); MONOCYTES PERCENT AUTO 7 % (4-13); Mean Corpuscular HGB 31.1 pg (26.0-34.0); Mean Corpuscular HGB Conc 33.4 g/dL (31.5-36.5); Mean Corpuscular Volume 93 fL (80-100); NEUTROPHILS ABSOLUTE AUTO 8.36 K/mm3 (1.96-9.15); NEUTROPHILS PERCENT AUTO 67 % (41-73); Platelet Count 319 K/mm3 (150-400); RDW Coefficient Variation 13.5 % (11.7-14.2); RDW Standard Deviation 46.2 fL (35.1-46.3); Red Blood Cell Count 4.57 M/mm3 (3.80-5.20); White Blood Cell Count 12.54 K/mm3 (4.00-11.30)
[2019-05-11 19:28] LABS: Troponin I <0.015 ng/mL (0.000-0.040)
[2019-05-11 19:36] LABS: Alanine Aminotransfer (ALT/SGP 31 U/L (12-78); Albumin, Blood 3.3 g/dL (3.4-5.0); Albumin/Globulin Ratio 0.9 (0.8-1.8); Alk Phos 103 U/L (50-136); Anion Gap 3 mmol/L (6-16); Aspartate Aminotrans (AST/SGOT 17 U/L (12-37); Bilirubin, Total 0.5 mg/dL (0.1-1.0); Blood Urea Nitrogen 15 mg/dL (8-24); Bun/Creatinine Ratio 21.5 (12.0-20.0); CO2, Blood 29 mmol/L (21-32); Calcium, Blood 8.7 mg/dL (8.5-10.1); Chloride, Blood 104 mmol/L (98-108); Globulin, Blood 3.6 g/dL (2.2-4.0); Glomerular Filtration Rate >60 (60-); Glucose, Blood 409 mg/dL (70-99); Potassium, Blood 3.9 mmol/L (3.5-5.5); Sodium, Blood 136 mmol/L (136-145); Total Protein, Blood 6.9 g/dL (6.4-8.2)
[2019-05-11 19:40] LABS: Source, Urine Clean Catch
[2019-05-11 19:42] LABS: Bilirubin, Urine Neg (Neg); Blood, Urine Neg (Neg); Glucose Qualitative, Urine 4+ (Neg); Ketones, Urine 1+ (Neg); Leukocyte Esterase, Urine 2+ (Neg); Nitrite, Urine Neg (Neg); Protein, Urine 2+ (Neg); Specific Gravity, Urine 1.015 (1.003-1.022); Urobilinogen, Urine NORM (Normal)
[2019-05-11 19:56] LABS: Appearance, Urine Hazy (Clear); Color, Urine Yellow (P-Yellow)
[2019-05-11 19:57] LABS: Bacteria Many /hpf; Hyaline Casts 0-2 /lpf (0-2); Mucus Mod ({null, 0-Heavy}); Red Blood Cells, Urine 0-2 /hpf (0-2); Squamous Epithelial Cells Mod /hpf (Few)
[2019-05-11] MEDS ORDERED: Percocet 5-3251 EACH PO (20:12)
[2019-05-11] MEDS ORDERED: METPRE4DP PO (20:12)
== END 2019-05-11 20:50 | disposition home or self-care (01) ==
LOC: ER 18:01
PROVIDERS: Physician Assistant
DX: M54.10 Radiculopathy, site unspecified (principal); I48.91 Unspecified atrial fibrillation; I10 Essential (primary) hypertension; E11.9 Type 2 diabetes mellitus without complications; J44.9 Chronic obstructive pulmonary disease, unspecified; E78.5 Hyperlipidemia, unspecified; F17.210 Nicotine dependence, cigarettes, uncomplicated; Z79.899 Other long term (current) drug therapy; Z79.01 Long term (current) use of anticoagulants; Z79.1 Long term (current) use of non-steroidal anti-inflammatories (NSAID); Z79.52 Long term (current) use of systemic steroids; Z91.048 Other nonmedicinal substance allergy status; Z88.5 Allergy status to narcotic agent
CPT/HCPCS: 36415; 80053; 81001; 84484; 85025; 87077; 87086; 87186; 93005; 93010; 96374; 96375; 99283-25; A9270; J1100; J1170; J2405

== ENCOUNTER 2019-05-16 13:59 | Emergency (ER) | payer OTHER ==
[~2019-05-16] VITALS: Ht 175.3 cm; Wt 104.3 kg
[~2019-05-16 13:59] MED LIST changes: +METPRE4DP PO
[2019-05-16 14:37] LABS: BASOPHILS PERCENT AUTO 1 % (0-2); EOSINOPHILS ABSOLUTE AUTO 0.25 K/mm3 (0.00-0.68); EOSINOPHILS PERCENT AUTO 2 % (0-6); Hematocrit 39.5 % (33.0-51.0); Hemoglobin 12.8 g/dL (11.5-16.0); IMMATURE GRAN ABSOLUTE AUTO 0.07 K/mm3 (0.00-0.10); IMMATURE GRAN PERCENT AUTO 1 % (0-1); LYMPHOCYTES ABSOLUTE AUTO 3.44 K/mm3 (0.84-5.20); LYMPHOCYTES PERCENT AUTO 29 % (21-46); MONOCYTES ABSOLUTE AUTO 1.04 K/mm3 (0.16-1.47); MONOCYTES PERCENT AUTO 9 % (4-13); Mean Corpuscular HGB 30.3 pg (26.0-34.0); Mean Corpuscular HGB Conc 32.4 g/dL (31.5-36.5); Mean Corpuscular Volume 93 fL (80-100); Mean Platelet Volume 11.4 fL (9.1-12.4); NEUTROPHILS ABSOLUTE AUTO 7.15 K/mm3 (1.96-9.15); NEUTROPHILS PERCENT AUTO 59 % (41-73); Platelet Count 329 K/mm3 (150-400); RDW Coefficient Variation 13.5 % (11.7-14.2); RDW Standard Deviation 46.3 fL (35.1-46.3); Red Blood Cell Count 4.23 M/mm3 (3.80-5.20); White Blood Cell Count 12.05 K/mm3 (4.00-11.30)
[2019-05-16 14:49] LABS: Alanine Aminotransfer (ALT/SGP 22 U/L (12-78); Albumin, Blood 3.2 g/dL (3.4-5.0); Alk Phos 83 U/L (50-136); Anion Gap 7 mmol/L (6-16); Aspartate Aminotrans (AST/SGOT 9 U/L (12-37); Bilirubin, Total 0.5 mg/dL (0.1-1.0); Blood Urea Nitrogen 21 mg/dL (8-24); Bun/Creatinine Ratio 30.1 (12.0-20.0); CO2, Blood 27 mmol/L (21-32); Calcium, Blood 8.3 mg/dL (8.5-10.1); Chloride, Blood 107 mmol/L (98-108); Globulin, Blood 3.2 g/dL (2.2-4.0); Glomerular Filtration Rate >60 (60-); Glucose, Blood 250 mg/dL (70-99); Potassium, Blood 4.4 mmol/L (3.5-5.5); Sodium, Blood 141 mmol/L (136-145); Total Protein, Blood 6.4 g/dL (6.4-8.2)
[2019-05-16 15:04] LABS: International Normalized Ratio 2.24; Prothrombin Time Results 22.1 Sec (9.7-11.5)
== END 2019-05-16 15:50 | disposition home or self-care (01) ==
LOC: ER 13:59
PROVIDERS: Emergency Medicine
DX: T46.5X1A Poisoning by other antihypertensive drugs, accidental (unintentional), initial encounter (principal); S30.1XXA Contusion of abdominal wall, initial encounter; I10 Essential (primary) hypertension; I48.91 Unspecified atrial fibrillation; E11.9 Type 2 diabetes mellitus without complications; J44.9 Chronic obstructive pulmonary disease, unspecified; E78.5 Hyperlipidemia, unspecified; F17.200 Nicotine dependence, unspecified, uncomplicated; Z91.048 Other nonmedicinal substance allergy status; Z88.8 Allergy status to other drugs, medicaments and biological substances; Z79.899 Other long term (current) drug therapy; Z79.01 Long term (current) use of anticoagulants; Z79.4 Long term (current) use of insulin; Z79.52 Long term (current) use of systemic steroids
CPT/HCPCS: 80053; 82947; 85025; 85610; 93005; 93010; 99284-25; J7030

== ENCOUNTER → 2019-05-26 | Outpatient (CLI) | payer OTHER ==
[2019-05-26 15:51] LABS: Source, Urine Clean Catch
[2019-05-26 18:01] LABS: Bilirubin, Urine Neg (Neg); Blood, Urine 1+ (Neg); Glucose Qualitative, Urine 4+ (Neg); Ketones, Urine Neg (Neg); Leukocyte Esterase, Urine 3+ (Neg); Nitrite, Urine Neg (Neg); Protein, Urine 1+ (Neg); Specific Gravity, Urine 1.025 (1.003-1.022); Urobilinogen, Urine NORM (Normal)
[2019-05-26 18:19] LABS: Appearance, Urine Hazy (Clear); Color, Urine Yellow (P-Yellow)
[2019-05-26 18:20] LABS: White Blood Cells, Urine 50-100 /hpf (0-5)
[2019-05-26 18:21] LABS: Bacteria Many /hpf; Squamous Epithelial Cells Mod /hpf (Few)
== END | disposition home or self-care (01) ==
LOC: LAB 15:49 → LAB SHORT 15:49
PROVIDERS: Student in an Organized Health Care Education/Training Program
DX: N39.0 Urinary tract infection, site not specified (principal)
CPT/HCPCS: 81001; 87086

== ENCOUNTER 2019-06-14 19:37 | Emergency (ER) | payer OTHER ==
[~2019-06-14] VITALS: Ht 172.7 cm; Wt 106.6 kg
[2019-06-14 20:18] LABS: BASOPHILS ABSOLUTE AUTO 0.09 K/mm3 (0.00-0.23); BASOPHILS PERCENT AUTO 1 % (0-2); EOSINOPHILS ABSOLUTE AUTO 0.25 K/mm3 (0.00-0.68); EOSINOPHILS PERCENT AUTO 2 % (0-6); Hematocrit 39.7 % (33.0-51.0); Hemoglobin 12.8 g/dL (11.5-16.0); IMMATURE GRAN ABSOLUTE AUTO 0.02 K/mm3 (0.00-0.10); IMMATURE GRAN PERCENT AUTO 0 % (0-1); LYMPHOCYTES ABSOLUTE AUTO 2.47 K/mm3 (0.84-5.20); LYMPHOCYTES PERCENT AUTO 24 % (21-46); MONOCYTES ABSOLUTE AUTO 0.85 K/mm3 (0.16-1.47); MONOCYTES PERCENT AUTO 8 % (4-13); Mean Corpuscular HGB 30.8 pg (26.0-34.0); Mean Corpuscular HGB Conc 32.2 g/dL (31.5-36.5); Mean Corpuscular Volume 96 fL (80-100); Mean Platelet Volume 10.4 fL (9.1-12.4); NEUTROPHILS ABSOLUTE AUTO 6.63 K/mm3 (1.96-9.15); NEUTROPHILS PERCENT AUTO 64 % (41-73); Platelet Count 303 K/mm3 (150-400); RDW Standard Deviation 49.5 fL (35.1-46.3); Red Blood Cell Count 4.15 M/mm3 (3.80-5.20); White Blood Cell Count 10.31 K/mm3 (4.00-11.30)
[2019-06-14 20:36] LABS: Alanine Aminotransfer (ALT/SGP 31 U/L (12-78); Albumin, Blood 3.6 g/dL (3.4-5.0); Alk Phos 82 U/L (50-136); Anion Gap 5 mmol/L (6-16); Aspartate Aminotrans (AST/SGOT 19 U/L (12-37); Bilirubin, Total 0.8 mg/dL (0.1-1.0); Blood Urea Nitrogen 18 mg/dL (8-24); Bun/Creatinine Ratio 31.1 (12.0-20.0); CO2, Blood 27 mmol/L (21-32); Calcium, Blood 8.9 mg/dL (8.5-10.1); Chloride, Blood 110 mmol/L (98-108); Creatinine, Blood 0.58 mg/dL (0.40-1.00); Globulin, Blood 3.7 g/dL (2.2-4.0); Glomerular Filtration Rate >60 (60-); Glucose, Blood 116 mg/dL (70-99); Potassium, Blood 4.2 mmol/L (3.5-5.5); Sodium, Blood 142 mmol/L (136-145); Total Protein, Blood 7.3 g/dL (6.4-8.2)
[2019-06-14 20:48] LABS: Source, Urine Clean Catch
[2019-06-14 20:53] LABS: Bilirubin, Urine Neg (Neg); Blood, Urine Neg (Neg); Glucose Qualitative, Urine Neg (Neg); Ketones, Urine Neg (Neg); Leukocyte Esterase, Urine 1+ (Neg); Nitrite, Urine Neg (Neg); Protein, Urine Neg (Neg); Specific Gravity, Urine 1.015 (1.003-1.022); Urobilinogen, Urine NORM (Normal)
[2019-06-14 21:06] LABS: Appearance, Urine Clear (Clear); Color, Urine Yellow (P-Yellow)
[2019-06-14 21:08] LABS: Bacteria Few /hpf; Red Blood Cells, Urine 0-2 /hpf (0-2); Squamous Epithelial Cells Mod /hpf (Few)
== END 2019-06-15 00:50 | disposition home or self-care (01) ==
LOC: ER 19:37
PROVIDERS: Physician Assistant
DX: M54.9 Dorsalgia, unspecified (principal); R53.1 Weakness; E11.40 Type 2 diabetes mellitus with diabetic neuropathy, unspecified; J44.9 Chronic obstructive pulmonary disease, unspecified; Z86.73 Personal history of transient ischemic attack (TIA), and cerebral infarction without residual deficits; Z87.891 Personal history of nicotine dependence; Z91.048 Other nonmedicinal substance allergy status; Z88.8 Allergy status to other drugs, medicaments and biological substances; Z79.899 Other long term (current) drug therapy; Z79.01 Long term (current) use of anticoagulants; Z79.4 Long term (current) use of insulin
CPT/HCPCS: 36415; 72128; 80053; 81001; 83690; 85025; 87077; 87086; 87186; 96361; 96374; 96375; 99285-25; A9270; A9270-GY; J1170; J2405; J2930; J7030

== ENCOUNTER → 2019-08-10 | Outpatient (CLI) | payer OTHER ==
[~2019-08-10] MED LIST changes: +BASAGLAR K100 UNIT/1 SC; -INSU100I6 SC; +LORA2 PO; +Lipitor80 MG PO; +NOVOLOG FL100 UNIT/1 SC; +TIZA4 PO; +VITAMIN D35000 UNI1 PO
== END | disposition home or self-care (01) ==
LOC: LAB SHORT 17:25 → LAB 17:25
DX: E11.65 Type 2 diabetes mellitus with hyperglycemia (principal)
CPT/HCPCS: 82043

== ENCOUNTER 2019-08-29 06:41 | Emergency (ER) | payer OTHER ==
[~2019-08-29] VITALS: Ht 175.3 cm; Wt 104.3 kg
[~2019-08-29 06:41] MED LIST changes: -LORA2 PO
[2019-08-29 07:03] LABS: BASOPHILS ABSOLUTE AUTO 0.08 K/mm3 (0.00-0.23); BASOPHILS PERCENT AUTO 1 % (0-2); EOSINOPHILS PERCENT AUTO 2 % (0-6); Hematocrit 42.1 % (33.0-51.0); Hemoglobin 13.7 g/dL (11.5-16.0); IMMATURE GRAN ABSOLUTE AUTO 0.04 K/mm3 (0.00-0.10); IMMATURE GRAN PERCENT AUTO 0 % (0-1); LYMPHOCYTES ABSOLUTE AUTO 3.39 K/mm3 (0.84-5.20); LYMPHOCYTES PERCENT AUTO 31 % (21-46); MONOCYTES ABSOLUTE AUTO 0.97 K/mm3 (0.16-1.47); MONOCYTES PERCENT AUTO 9 % (4-13); Mean Corpuscular HGB 30.2 pg (26.0-34.0); Mean Corpuscular HGB Conc 32.5 g/dL (31.5-36.5); Mean Corpuscular Volume 93 fL (80-100); Mean Platelet Volume 10.4 fL (9.1-12.4); NEUTROPHILS ABSOLUTE AUTO 6.16 K/mm3 (1.96-9.15); NEUTROPHILS PERCENT AUTO 57 % (41-73); Platelet Count 316 K/mm3 (150-400); RDW Coefficient Variation 13.4 % (11.7-14.2); RDW Standard Deviation 45.7 fL (35.1-46.3); Red Blood Cell Count 4.53 M/mm3 (3.80-5.20); White Blood Cell Count 10.84 K/mm3 (4.00-11.30)
[2019-08-29 07:22] LABS: Alanine Aminotransfer (ALT/SGP 27 U/L (12-78); Albumin, Blood 3.3 g/dL (3.4-5.0); Albumin/Globulin Ratio 0.9 (0.8-1.8); Alk Phos 94 U/L (50-136); Anion Gap 5 mmol/L (6-16); Aspartate Aminotrans (AST/SGOT 15 U/L (12-37); Bilirubin, Total 0.3 mg/dL (0.1-1.0); Blood Urea Nitrogen 26 mg/dL (8-24); Bun/Creatinine Ratio 42.5 (12.0-20.0); CO2, Blood 27 mmol/L (21-32); Calcium, Blood 9.3 mg/dL (8.5-10.1); Chloride, Blood 112 mmol/L (98-108); Creatinine, Blood 0.61 mg/dL (0.40-1.00); Globulin, Blood 3.6 g/dL (2.2-4.0); Glomerular Filtration Rate >60 (60-); Glucose, Blood 123 mg/dL (70-99); Sodium, Blood 144 mmol/L (136-145); Total Protein, Blood 6.9 g/dL (6.4-8.2); Troponin I 0.031 ng/mL (0.000-0.040)
[2019-08-29 07:51] LABS: International Normalized Ratio 1.28; Prothrombin Time Results 13.3 Sec (9.7-11.5)
== END 2019-08-29 10:53 | disposition home or self-care (01) ==
LOC: ER 06:41
PROVIDERS: Emergency Medicine
DX: I48.91 Unspecified atrial fibrillation (principal); E86.0 Dehydration; I10 Essential (primary) hypertension; E11.9 Type 2 diabetes mellitus without complications; J44.9 Chronic obstructive pulmonary disease, unspecified; E78.5 Hyperlipidemia, unspecified; F17.200 Nicotine dependence, unspecified, uncomplicated; Z91.048 Other nonmedicinal substance allergy status; Z88.5 Allergy status to narcotic agent; Z88.8 Allergy status to other drugs, medicaments and biological substances; Z79.899 Other long term (current) drug therapy; Z79.01 Long term (current) use of anticoagulants; Z79.4 Long term (current) use of insulin; Z79.51 Long term (current) use of inhaled steroids
CPT/HCPCS: 71045; 80053; 84484; 85025; 85610; 85730; 93005; 93010; 96361; 96374; 99284-25; J2060; J7030

== ENCOUNTER 2019-09-12 09:37 | Emergency (ER) | payer OTHER ==
[~2019-09-12] VITALS: Ht 175.3 cm; Wt 117.9 kg
[2019-09-12 10:20] LABS: BASOPHILS ABSOLUTE AUTO 0.08 K/mm3 (0.00-0.23); BASOPHILS PERCENT AUTO 1 % (0-2); EOSINOPHILS ABSOLUTE AUTO 0.23 K/mm3 (0.00-0.68); EOSINOPHILS PERCENT AUTO 2 % (0-6); Hematocrit 38.2 % (33.0-51.0); Hemoglobin 12.1 g/dL (11.5-16.0); IMMATURE GRAN ABSOLUTE AUTO 0.04 K/mm3 (0.00-0.10); IMMATURE GRAN PERCENT AUTO 0 % (0-1); LYMPHOCYTES ABSOLUTE AUTO 1.92 K/mm3 (0.84-5.20); LYMPHOCYTES PERCENT AUTO 19 % (21-46); MONOCYTES ABSOLUTE AUTO 0.78 K/mm3 (0.16-1.47); MONOCYTES PERCENT AUTO 8 % (4-13); Mean Corpuscular HGB 30.7 pg (26.0-34.0); Mean Corpuscular HGB Conc 31.7 g/dL (31.5-36.5); Mean Corpuscular Volume 97 fL (80-100); Mean Platelet Volume 10.5 fL (9.1-12.4); NEUTROPHILS ABSOLUTE AUTO 7.06 K/mm3 (1.96-9.15); NEUTROPHILS PERCENT AUTO 70 % (41-73); Platelet Count 278 K/mm3 (150-400); RDW Standard Deviation 50.4 fL (35.1-46.3); Red Blood Cell Count 3.94 M/mm3 (3.80-5.20); White Blood Cell Count 10.11 K/mm3 (4.00-11.30)
[2019-09-12 10:33] LABS: International Normalized Ratio 3.09
[2019-09-12 10:40] LABS: Alanine Aminotransfer (ALT/SGP 24 U/L (12-78); Albumin, Blood 2.9 g/dL (3.4-5.0); Albumin/Globulin Ratio 0.8 (0.8-1.8); Alk Phos 93 U/L (50-136); Anion Gap 4 mmol/L (6-16); Aspartate Aminotrans (AST/SGOT 10 U/L (12-37); Bilirubin, Total 0.3 mg/dL (0.1-1.0); Blood Urea Nitrogen 15 mg/dL (8-24); Bun/Creatinine Ratio 22.9 (12.0-20.0); CO2, Blood 27 mmol/L (21-32); Calcium, Blood 8.3 mg/dL (8.5-10.1); Chloride, Blood 113 mmol/L (98-108); Creatinine, Blood 0.66 mg/dL (0.40-1.00); Globulin, Blood 3.5 g/dL (2.2-4.0); Glomerular Filtration Rate >60 (60-); Glucose, Blood 164 mg/dL (70-99); Potassium, Blood 4.2 mmol/L (3.5-5.5); Sodium, Blood 144 mmol/L (136-145); Total Protein, Blood 6.4 g/dL (6.4-8.2); Troponin I <0.015 ng/mL (0.000-0.040)
[2019-09-12 10:51] LABS: Source, Urine Voided
[2019-09-12 10:57] LABS: Bilirubin, Urine Neg (Neg); Blood, Urine 1+ (Neg); Glucose Qualitative, Urine 3+ (Neg); Ketones, Urine Neg (Neg); Leukocyte Esterase, Urine 3+ (Neg); Nitrite, Urine Pos (Neg); Protein, Urine Neg (Neg); Specific Gravity, Urine 1.025 (1.003-1.022); Urobilinogen, Urine NORM (Normal)
[2019-09-12 10:59] LABS: Appearance, Urine Hazy (Clear); Color, Urine Yellow (P-Yellow)
[2019-09-12 11:05] LABS: White Blood Cells, Urine 50-100 /hpf (0-5)
[2019-09-12 11:06] LABS: Bacteria Many /hpf; Red Blood Cells, Urine 0-2 /hpf (0-2); Squamous Epithelial Cells Mod /hpf (Few)
[2019-09-12] MEDS ORDERED: CEPH500 PO (11:57)
== END 2019-09-12 12:34 | disposition home or self-care (01) ==
LOC: ER 09:37
PROVIDERS: Emergency Medicine
DX: N39.0 Urinary tract infection, site not specified (principal); I48.91 Unspecified atrial fibrillation; I10 Essential (primary) hypertension; E11.9 Type 2 diabetes mellitus without complications; J44.9 Chronic obstructive pulmonary disease, unspecified; F17.200 Nicotine dependence, unspecified, uncomplicated; Z88.8 Allergy status to other drugs, medicaments and biological substances; Z91.048 Other nonmedicinal substance allergy status; Z79.899 Other long term (current) drug therapy; Z79.4 Long term (current) use of insulin; Z79.01 Long term (current) use of anticoagulants; Z86.73 Personal history of transient ischemic attack (TIA), and cerebral infarction without residual deficits
CPT/HCPCS: 70450; 71045; 80053; 81001; 83880; 84484; 85025; 85610; 87077; 87086; 87186; 93005; 93010; 96374; 99285-25; J0696

== ENCOUNTER 2019-09-19 13:23 | Emergency (ER) | payer OTHER ==
[~2019-09-19] VITALS: Ht 175.3 cm; Wt 117.9 kg
[2019-09-19] MEDS ORDERED: LORA2 PO (15:03)
== END 2019-09-19 15:20 | disposition home or self-care (01) ==
LOC: ER 13:23
DX: R25.2 Cramp and spasm (principal); R06.1 Stridor; E11.40 Type 2 diabetes mellitus with diabetic neuropathy, unspecified; I10 Essential (primary) hypertension; F32.9 Major depressive disorder, single episode, unspecified; F41.9 Anxiety disorder, unspecified; J44.9 Chronic obstructive pulmonary disease, unspecified; M54.9 Dorsalgia, unspecified; G89.29 Other chronic pain; I48.91 Unspecified atrial fibrillation; D50.9 Iron deficiency anemia, unspecified; E66.01 Morbid (severe) obesity due to excess calories; F17.210 Nicotine dependence, cigarettes, uncomplicated; Z79.4 Long term (current) use of insulin; Z79.899 Other long term (current) drug therapy
CPT/HCPCS: 96372; 99283-25; J2060

== ENCOUNTER → 2019-10-12 | Outpatient (CLI) | payer OTHER ==
[~2019-10-12] MED LIST changes: +LORA2 PO
== END | disposition home or self-care (01) ==
LOC: LAB SHORT 12:20 → LAB 12:20
DX: R30.0 Dysuria (principal)
CPT/HCPCS: 87086

== ENCOUNTER 2019-11-10 17:15 | Emergency (ER) | payer OTHER ==
[~2019-11-10] VITALS: Ht 175.3 cm; Wt 117.9 kg
[~2019-11-10 17:15] MED LIST changes: +ATORVASTATIN CA80 M1 PO; -Lipitor80 MG PO
[2019-11-10 18:09] LABS: Source, Urine Clean Catch
[2019-11-10 18:17] LABS: Appearance, Urine Hazy (Clear); Bilirubin, Urine Neg (Neg); Blood, Urine 2+ (Neg); Color, Urine Yellow (P-Yellow); Glucose Qualitative, Urine 2+ (Neg); Ketones, Urine 1+ (Neg); Leukocyte Esterase, Urine 3+ (Neg); Nitrite, Urine Neg (Neg); Protein, Urine 2+ (Neg); Specific Gravity, Urine 1.025 (1.003-1.022); Urobilinogen, Urine NORM (Normal)
[2019-11-10 18:24] LABS: BASOPHILS ABSOLUTE AUTO 0.09 K/mm3 (0.00-0.23); BASOPHILS PERCENT AUTO 1 % (0-2); EOSINOPHILS ABSOLUTE AUTO 0.35 K/mm3 (0.00-0.68); EOSINOPHILS PERCENT AUTO 4 % (0-6); Hematocrit 42.5 % (33.0-51.0); Hemoglobin 13.6 g/dL (11.5-16.0); IMMATURE GRAN ABSOLUTE AUTO 0.05 K/mm3 (0.00-0.10); IMMATURE GRAN PERCENT AUTO 1 % (0-1); LYMPHOCYTES ABSOLUTE AUTO 2.72 K/mm3 (0.84-5.20); LYMPHOCYTES PERCENT AUTO 27 % (21-46); MONOCYTES ABSOLUTE AUTO 0.73 K/mm3 (0.16-1.47); MONOCYTES PERCENT AUTO 7 % (4-13); Mean Corpuscular HGB 30.5 pg (26.0-34.0); Mean Corpuscular Volume 95 fL (80-100); Mean Platelet Volume 11.2 fL (9.1-12.4); NEUTROPHILS ABSOLUTE AUTO 6.06 K/mm3 (1.96-9.15); NEUTROPHILS PERCENT AUTO 61 % (41-73); Platelet Count 312 K/mm3 (150-400); RDW Coefficient Variation 13.7 % (11.7-14.2); RDW Standard Deviation 48.4 fL (35.1-46.3); Red Blood Cell Count 4.46 M/mm3 (3.80-5.20)
[2019-11-10 18:44] LABS: Alanine Aminotransfer (ALT/SGP 25 U/L (12-78); Albumin, Blood 3.5 g/dL (3.4-5.0); Albumin/Globulin Ratio 0.9 (0.8-1.8); Alk Phos 110 U/L (50-136); Anion Gap 3 mmol/L (6-16); Aspartate Aminotrans (AST/SGOT 17 U/L (12-37); Bacteria Many /hpf; Bilirubin, Total 0.4 mg/dL (0.1-1.0); Blood Urea Nitrogen 14 mg/dL (8-24); Bun/Creatinine Ratio 22.4 (12.0-20.0); CO2, Blood 28 mmol/L (21-32); Calcium, Blood 9.1 mg/dL (8.5-10.1); Chloride, Blood 108 mmol/L (98-108); Creatinine, Blood 0.62 mg/dL (0.40-1.00); Globulin, Blood 4.1 g/dL (2.2-4.0); Glomerular Filtration Rate >60 (60-); Glucose, Blood 168 mg/dL (70-99); Mucus Light (0-Heavy); Potassium, Blood 3.6 mmol/L (3.5-5.5); Red Blood Cells, Urine 0-2 /hpf (0-2); Sodium, Blood 139 mmol/L (136-145); Squamous Epithelial Cells Mod /hpf (Few); Total Protein, Blood 7.6 g/dL (6.4-8.2)
[2019-11-10] MEDS ORDERED: Protonix40 MG PO (23:13)
[2019-11-11] MEDS ORDERED: GLIP5 PO (13:35)
[2019-11-11] MEDS ORDERED: COMBIVENT RESPIM4 GM INH (13:37)
[2019-11-11] MEDS ORDERED: CLOBETTC TOP (13:38)
[2019-11-11] MEDS ORDERED: ALBU2.5V5 INH (13:38)
[2019-11-11] MEDS ORDERED: Diflucan150 MG PO (13:39)
== END 2019-11-11 00:28 | disposition home or self-care (01) ==
LOC: ER 17:15
PROVIDERS: Physician Assistant
DX: K80.50 Calculus of bile duct without cholangitis or cholecystitis without obstruction (principal); I10 Essential (primary) hypertension; E11.40 Type 2 diabetes mellitus with diabetic neuropathy, unspecified; F32.9 Major depressive disorder, single episode, unspecified; F41.9 Anxiety disorder, unspecified; J44.9 Chronic obstructive pulmonary disease, unspecified; D50.9 Iron deficiency anemia, unspecified; I48.91 Unspecified atrial fibrillation; Z88.5 Allergy status to narcotic agent; Z91.048 Other nonmedicinal substance allergy status; Z88.8 Allergy status to other drugs, medicaments and biological substances; Z79.899 Other long term (current) drug therapy; Z79.01 Long term (current) use of anticoagulants; Z79.4 Long term (current) use of insulin; Z87.891 Personal history of nicotine dependence
CPT/HCPCS: 36415; 74177; 80053; 81001; 83690; 85025; 87086; 93005; 93010; 96374-59; 99284-25; A9270; J1170; Q9967

== ENCOUNTER 2019-11-12 19:51 | Inpatient (IN) | payer OTHER ==
[~2019-11-12] VITALS: Ht 175.3 cm; Wt 122.4 kg
[~2019-11-12 19:51] MED LIST changes: +ALBU2.5V5 INH; +CLOBETTC TOP; +COMBIVENT RESPIM4 GM INH; +Diflucan150 MG PO; +Protonix40 MG PO
[2019-11-12 21:15] LABS: BASOPHILS ABSOLUTE AUTO 0.09 K/mm3 (0.00-0.23); BASOPHILS PERCENT AUTO 1 % (0-2); EOSINOPHILS ABSOLUTE AUTO 0.25 K/mm3 (0.00-0.68); EOSINOPHILS PERCENT AUTO 2 % (0-6); Hematocrit 41.6 % (33.0-51.0); Hemoglobin 13.3 g/dL (11.5-16.0); IMMATURE GRAN ABSOLUTE AUTO 0.06 K/mm3 (0.00-0.10); IMMATURE GRAN PERCENT AUTO 1 % (0-1); LYMPHOCYTES ABSOLUTE AUTO 2.25 K/mm3 (0.84-5.20); LYMPHOCYTES PERCENT AUTO 18 % (21-46); MONOCYTES ABSOLUTE AUTO 0.81 K/mm3 (0.16-1.47); MONOCYTES PERCENT AUTO 6 % (4-13); Mean Corpuscular HGB 30.4 pg (26.0-34.0); Mean Corpuscular Volume 95 fL (80-100); Mean Platelet Volume 11.2 fL (9.1-12.4); NEUTROPHILS ABSOLUTE AUTO 9.39 K/mm3 (1.96-9.15); NEUTROPHILS PERCENT AUTO 73 % (41-73); Platelet Count 310 K/mm3 (150-400); RDW Coefficient Variation 13.4 % (11.7-14.2); RDW Standard Deviation 47.4 fL (35.1-46.3); Red Blood Cell Count 4.37 M/mm3 (3.80-5.20); White Blood Cell Count 12.85 K/mm3 (4.00-11.30)
[2019-11-12 21:32] LABS: Alanine Aminotransfer (ALT/SGP 23 U/L (12-78); Albumin, Blood 3.3 g/dL (3.4-5.0); Albumin/Globulin Ratio 0.8 (0.8-1.8); Alk Phos 112 U/L (50-136); Anion Gap 6 mmol/L (6-16); Aspartate Aminotrans (AST/SGOT 15 U/L (12-37); Bilirubin, Total 0.5 mg/dL (0.1-1.0); Blood Urea Nitrogen 11 mg/dL (8-24); Bun/Creatinine Ratio 16.1 (12.0-20.0); CO2, Blood 28 mmol/L (21-32); Calcium, Blood 8.7 mg/dL (8.5-10.1); Chloride, Blood 107 mmol/L (98-108); Creatinine, Blood 0.69 mg/dL (0.40-1.00); Globulin, Blood 4.1 g/dL (2.2-4.0); Glomerular Filtration Rate >60 (60-); Glucose, Blood 274 mg/dL (70-99); Potassium, Blood 4.3 mmol/L (3.5-5.5); Sodium, Blood 141 mmol/L (136-145); Total Protein, Blood 7.4 g/dL (6.4-8.2)
[2019-11-12 21:35] LABS: Prothrombin Time Results 62.3 Sec (9.7-11.5)
[2019-11-12 21:37] LABS: International Normalized Ratio 6.47
--- NOTE | 2019-11-13 02:24 | NUR ---
PT ADMITTED FROM ER FOR CHOLELITHIASIS. PT MEDICATED WITH 1MG DILAUDID PER EMAR. FLUIDS INFUSING. PLAN FOR SURGERY POSSIBLY ON FRIDAY WITH DR. MONTANEZ. AWAITING FOR INR TO STABALIZE.
[2019-11-13 05:22] LABS: Hematocrit 38.7 % (33.0-51.0); Hemoglobin 12.3 g/dL (11.5-16.0); Mean Corpuscular HGB 30.6 pg (26.0-34.0); Mean Corpuscular HGB Conc 31.8 g/dL (31.5-36.5); Mean Corpuscular Volume 96 fL (80-100); Mean Platelet Volume 11.6 fL (9.1-12.4); Platelet Count 285 K/mm3 (150-400); RDW Coefficient Variation 13.6 % (11.7-14.2); RDW Standard Deviation 48.6 fL (35.1-46.3); Red Blood Cell Count 4.02 M/mm3 (3.80-5.20); White Blood Cell Count 10.52 K/mm3 (4.00-11.30)
[2019-11-13 05:37] LABS: Source, Urine Clean Catch
[2019-11-13 05:39] LABS: Bilirubin, Urine Neg (Neg); Blood, Urine 2+ (Neg); Glucose Qualitative, Urine 4+ (Neg); Ketones, Urine Neg (Neg); Leukocyte Esterase, Urine 3+ (Neg); Nitrite, Urine Neg (Neg); Protein, Urine 1+ (Neg); Specific Gravity, Urine 1.025 (1.003-1.022); Urobilinogen, Urine NORM (Normal)
[2019-11-13 05:40] LABS: Alanine Aminotransfer (ALT/SGP 21 U/L (12-78); Albumin, Blood 3.1 g/dL (3.4-5.0); Albumin/Globulin Ratio 0.9 (0.8-1.8); Alk Phos 101 U/L (50-136); Anion Gap 3 mmol/L (6-16); Aspartate Aminotrans (AST/SGOT 13 U/L (12-37); Bilirubin, Total 0.7 mg/dL (0.1-1.0); Blood Urea Nitrogen 12 mg/dL (8-24); Bun/Creatinine Ratio 16.7 (12.0-20.0); CO2, Blood 30 mmol/L (21-32); Calcium, Blood 8.6 mg/dL (8.5-10.1); Chloride, Blood 108 mmol/L (98-108); Creatinine, Blood 0.72 mg/dL (0.40-1.00); Globulin, Blood 3.6 g/dL (2.2-4.0); Glomerular Filtration Rate >60 (60-); Glucose, Blood 262 mg/dL (70-99); Sodium, Blood 141 mmol/L (136-145); Total Protein, Blood 6.7 g/dL (6.4-8.2)
[2019-11-13 06:06] LABS: Appearance, Urine Cloudy (Clear); Color, Urine Yellow (P-Yellow)
[2019-11-13 06:07] LABS: Bacteria Many /hpf; Squamous Epithelial Cells Few /hpf (Few); White Blood Cells, Urine TNTC /hpf (0-5)
[2019-11-13 13:01] LABS: Prothrombin Time Results 43.3 Sec (9.7-11.5)
[2019-11-13 13:08] LABS: International Normalized Ratio 4.4
--- NOTE | 2019-11-13 14:06 | NUR ---
CRITICAL LAB INR OF 4.40, T/C TO DR SIMPSON, NO NEW ORDERS RECEIVED
--- NOTE | 2019-11-13 18:22 | NUR ---
PT INR REMAINS ELEVATED AT 4.40, RECEIVED 10MG VIT K IM AND LEVEL TO BE RECHECKED IN THE AM. PER DR TARIK ZAPATA TO BE DONE WHEN HER INR LEVEL IS WNL. MEDICATED FOR PAIN X2 TODAY AND NAUXEA X1. NO ACUTE CHANGES NOTED THIS SHIFT, WILL CONTINUE TO MONITOR AND REPORT TO ONCOMING RN
[2019-11-14 06:31] LABS: International Normalized Ratio 3.58; Prothrombin Time Results 35.6 Sec (9.7-11.5)
--- NOTE | 2019-11-14 08:39 | NUR ---
SUMMARY PT CONT PENDING OR WHEN INR WITHIN SATISF LEVELS. THIS AM CONTINUES > 3. DAY RN AGREES TO KEEP PT NPO AND WILL FU ON DESIRED LEVELS.PT CONT ON OOOOOOO2 DURING NIGHT. STATES SHE THINKS SHE HAS VANESSA BUT UNSURE.
--- NOTE | 2019-11-14 09:42 | NUR ---
POSSIBLE SURGERY TODAY, HOLDING PT AM MEDS
--- NOTE | 2019-11-14 18:14 | NUR ---
SUMMARY: NO ACUTE CHANGE TODAY. A/O, VSS. PT INR TOO HIGH FOR SURGERY TODAY, GIVEN VIT K. PLAN IS FOR REPEAT INR TOMORROW AND POSSIBLE SURGERY. PT HAS HAD MINIMAL PAIN, NO NAUSEA. ABLE TO TOLERATE SOME FOOD IN THE AFTERNOON. INDEPENDENT IN ROOM. NO SAFETY CONCERNS, WILL REPORT TO AMY RN.
[2019-11-15 05:58] LABS: BASOPHILS ABSOLUTE AUTO 0.06 K/mm3 (0.00-0.23); BASOPHILS PERCENT AUTO 1 % (0-2); EOSINOPHILS ABSOLUTE AUTO 0.27 K/mm3 (0.00-0.68); EOSINOPHILS PERCENT AUTO 2 % (0-6); Hematocrit 34.5 % (33.0-51.0); Hemoglobin 11.2 g/dL (11.5-16.0); IMMATURE GRAN ABSOLUTE AUTO 0.06 K/mm3 (0.00-0.10); IMMATURE GRAN PERCENT AUTO 1 % (0-1); LYMPHOCYTES ABSOLUTE AUTO 2.39 K/mm3 (0.84-5.20); LYMPHOCYTES PERCENT AUTO 20 % (21-46); MONOCYTES PERCENT AUTO 8 % (4-13); Mean Corpuscular HGB 31.1 pg (26.0-34.0); Mean Corpuscular HGB Conc 32.5 g/dL (31.5-36.5); Mean Corpuscular Volume 96 fL (80-100); Mean Platelet Volume 11.5 fL (9.1-12.4); NEUTROPHILS ABSOLUTE AUTO 8.14 K/mm3 (1.96-9.15); NEUTROPHILS PERCENT AUTO 69 % (41-73); Platelet Count 266 K/mm3 (150-400); RDW Coefficient Variation 13.3 % (11.7-14.2); RDW Standard Deviation 46.9 fL (35.1-46.3); White Blood Cell Count 11.82 K/mm3 (4.00-11.30)
[2019-11-15 06:16] LABS: International Normalized Ratio 1.65; Prothrombin Time Results 17.2 Sec (9.7-11.5)
[2019-11-15 06:17] LABS: Alanine Aminotransfer (ALT/SGP 19 U/L (12-78); Albumin, Blood 2.8 g/dL (3.4-5.0); Albumin/Globulin Ratio 0.8 (0.8-1.8); Alk Phos 92 U/L (50-136); Anion Gap 4 mmol/L (6-16); Aspartate Aminotrans (AST/SGOT 14 U/L (12-37); Bilirubin, Total 0.9 mg/dL (0.1-1.0); Blood Urea Nitrogen 20 mg/dL (8-24); Bun/Creatinine Ratio 25.6 (12.0-20.0); CO2, Blood 28 mmol/L (21-32); Calcium, Blood 8.4 mg/dL (8.5-10.1); Chloride, Blood 108 mmol/L (98-108); Creatinine, Blood 0.78 mg/dL (0.40-1.00); Globulin, Blood 3.5 g/dL (2.2-4.0); Glomerular Filtration Rate >60 (60-); Glucose, Blood 244 mg/dL (70-99); Magnesium, Blood 1.9 mg/dL (1.6-2.4); Phosphorus, Blood 3.4 mg/dL (2.5-4.9); Potassium, Blood 4.2 mmol/L (3.5-5.5); Sodium, Blood 140 mmol/L (136-145); Total Protein, Blood 6.3 g/dL (6.4-8.2)
--- NOTE | 2019-11-15 08:11 | NUR ---
SUMMARY IMPROVED INR. POSSIBLE OR TODAY? MED IV FOR PAIN TONIGHT.
--- NOTE | 2019-11-15 14:39 | NUR ---
Patient agreed to [facility] on 11/15/2019, for care to be performed on 11/16/2019. Patient had no questions comments or concerns.
--- NOTE | 2019-11-15 16:16 | NUR ---
SHIFT SUMMARY NO ACUTE CHANGES THIS SHIFT. MEDICATED FOR PAIN WITH 50MCG FENTANYL PRN. PT RECEIVED DOSE OF VITAMIN K WITH LABS IN THE AM. PLAN IS FOR SURGERY TOMORROW IF INR WITHIN THERAPEUTIC RANGE. NPO AT MIDNIGHT. INDEP IN ROOM. CALL LIGHT WITHIN REACH.
--- NOTE | 2019-11-16 04:23 | NUR ---
SHIFT SUMMARY PT RESTED WELL SINCE MIDNIGHT. AAOX4. NPO THIS AM. DISCOMFORT CONTROLLED WITH 50mcg FENTANYL X2, NO NAUSEA/EMESIS. AWAITING LAB RESULTS THIS AM FOR POSSIBLE PROCEDURE. NO ACUTE CHANGES OVER NIGHT. CALL LIGHT WITHIN REACH. PT RESTING IN BED AT THIS TIME.
[2019-11-16 05:46] LABS: International Normalized Ratio 1.17; Prothrombin Time Results 12.4 Sec (9.7-11.5)
--- NOTE | 2019-11-16 11:05 | NUR ---
PT BEING PICKED UP FROM DAY SURGERY AT THIS TIME
--- NOTE | 2019-11-16 11:13 | NUR ---
ADMISSION TO UNIT STARTED.
--- NOTE | 2019-11-16 11:14 | NUR ---
Lungs clear T/O to Auscultation. Patient confirms NPO status and agrees with scheduled surgery.
--- NOTE | 2019-11-16 14:15 | NUR ---
POST OP PT ALERT AND ORIENTED AND DENIES PAIN AT THIS TIME. LAP SITES TO ABD X4 ARE CDI. SLOWLY COMPA SIPS OF CLEARS. POST OP VS IN PROGRESS. PLANNING TO WEAN PT OFF OF O2. ENCOURAGING DEEP BREATHING. FAMILY AT BEDSIDE FOR SUPPORT. CALL LIGHT WITHIN REACH.
--- NOTE | 2019-11-16 16:18 | NUR ---
SHIFT SUMMARY NO ACUTE CHANGES SINCE ARRIVAL POST OP. PT MEDICATED WITH 25MCG IV FENTANYL AND GIVEN 1 PERCOCET FOR PAIN. COMPA REG DIET. 1 ASSIST PRN IN ROOM. POST OP VS REMAIN STABLE. CALL LIGHT WITHIN REACH.
[2019-11-16 23:20] LABS: International Normalized Ratio 1.1; Prothrombin Time Results 11.7 Sec (9.7-11.5)
--- NOTE | 2019-11-17 04:07 | NUR ---
PT COMPLAINING OF NUMBNESS TO LEFT SIDE. UPON ASSESSMENT, LEFT FACIAL DROOP NOTED. PT REPORTS LOSING BALANCE WHILE GOING TO THE BATHROOM. EQUAL STRENGTH BILATERALLY. PT WITH HX OF BELLS PALSY AND TIA. ATTEMPTED TO CALL HOSPITALIST. NO ANSWER AT THIS TIME. WAITING FOR CALL BACK.
--- NOTE | 2019-11-17 04:17 | NUR ---
NEW ORDER FOR STAT HEAD CT
--- NOTE | 2019-11-17 05:23 | NUR ---
SHIFT SUMMARY: PT POD #1 FOR LAP BENNY. GAUZE CDI. PAIN MANAGED WITH PERCOCET PER EMAR. PT C/O NUMBNESS TO LEFT SIDE THIS MORNING WITH LEFT SIDE FACIAL DROOP. PT UNCOORDINATED WITH MOVEMENT. ALTERED MENTATION. PT REPORTS SOME VISION CHANGES WELL. CT OF HEAD COMPLETE. AWAITING RESULTS. VITAL SIGNS STABLE AT THIS TIME.
[2019-11-17 05:58] LABS: International Normalized Ratio 1.13
[2019-11-17 14:23] LABS: Mean Platelet Volume 11.4 fL (9.1-12.4); Platelet Count 270 K/mm3 (150-400)
--- NOTE | 2019-11-17 18:03 | NUR ---
SUMMARY MINIMAL PAIN TODAY, MEDICATED W/ 1 PERCOCET TODAY PRIOR TO PT/OT SESSION, GAIT UNSTEADY AND NEEDS WALKER, CBG'S ELEVATED, COVERED PER SLIDING SCALE, L FACIAL DROOP NOT NOTICEABLE, DENIES ANY OTHER NEW SYMPTOMS, HEAD MRI AND CAROTID DUPLEX DONE TODAY, NO ACUTE CHANGES THIS SHIFT.
--- NOTE | 2019-11-18 05:13 | NUR ---
POD 2 S/P LAP BENNY. PT VSS T/O NIGHT. DRESSING CDI W/BRUISING TO ABD. PT COMPA REG PO, NO C/O N/V, REP NO FLATUS YET. PT REP N/T AT BASELINE, SPOOLER RUBBER STRAND EQUAL, PT DID REP FEELING SLIGHTLY UNSTEADY WHEN FIRST UP THIS AM. PT UP IN ROOM W/FWW, COMPA WELL. HEPARIN GTT CONT PER ORDERS, RATE TITRATED X1 PER PHARMACY ORDERS. PT USING CALL LIGHT FOR ASSISTANCE, WILL CONT TO MONITOR UNTIL REP GIVEN TO ONCOMING RN.
[2019-11-18 08:54] LABS: International Normalized Ratio 1.09; Prothrombin Time Results 11.6 Sec (9.7-11.5)
--- NOTE | 2019-11-18 18:50 | NUR ---
SHIFT SUMMARY- PT ALERT, ORIENTED AND INDEPENDENT IN THE ROOM. PT WAS MEDICATED FOR PAIN AT THE START OF THE SHIFT AND HAS BEEN RESTING COMFORTABLY ON AND OFF T/O THE DAY. PT HAS HEPARIN DRIP RUNNING AT 20MG/KG/HR CURRENTLY RATE BEING TITRATED BY PHARMACY. BAG JUST WENT EMPTY DELMY IN PHARMACY IS SENDING A NEW BAG NOW WILL START SOON IT ARRIVES. WILL PASS ON TO NIGHT RN AT SHIFT CHANGE. PT BEGAN PASSING FLATTUS THIS EVENING.
--- NOTE | 2019-11-19 04:24 | NUR ---
SHIFT SUMMARY: PT S/P LAP BENNY. PAIN MANAGED WITH 1 PERCOCET PER EMAR. MEDICATED ONCE. PT REPORTS PASSING FLATUS. DRESSINGS TO ABD CDI. PT STILL HAS MILD LEFT SIDE FACIAL DROOP WITH NUMBNESS. HEP GTT TITRATED UP ONCE PER ORDERS. PT COMPA REG DIET. INDEPENDENT IN ROOM.
[2019-11-19 05:01] LABS: BASOPHILS PERCENT AUTO 1 % (0-2); EOSINOPHILS ABSOLUTE AUTO 0.48 K/mm3 (0.00-0.68); EOSINOPHILS PERCENT AUTO 5 % (0-6); Hematocrit 34.7 % (33.0-51.0); Hemoglobin 10.8 g/dL (11.5-16.0); IMMATURE GRAN ABSOLUTE AUTO 0.13 K/mm3 (0.00-0.10); IMMATURE GRAN PERCENT AUTO 1 % (0-1); LYMPHOCYTES ABSOLUTE AUTO 3.02 K/mm3 (0.84-5.20); LYMPHOCYTES PERCENT AUTO 28 % (21-46); MONOCYTES ABSOLUTE AUTO 1.04 K/mm3 (0.16-1.47); MONOCYTES PERCENT AUTO 10 % (4-13); Mean Corpuscular HGB 30.3 pg (26.0-34.0); Mean Corpuscular HGB Conc 31.1 g/dL (31.5-36.5); Mean Corpuscular Volume 98 fL (80-100); Mean Platelet Volume 11.9 fL (9.1-12.4); NEUTROPHILS ABSOLUTE AUTO 5.93 K/mm3 (1.96-9.15); NEUTROPHILS PERCENT AUTO 56 % (41-73); Platelet Count 282 K/mm3 (150-400); RDW Coefficient Variation 13.5 % (11.7-14.2); RDW Standard Deviation 48.5 fL (35.1-46.3); Red Blood Cell Count 3.56 M/mm3 (3.80-5.20)
[2019-11-19 05:20] LABS: International Normalized Ratio 1.31; Prothrombin Time Results 13.8 Sec (9.7-11.5)
[2019-11-19 05:34] LABS: Anion Gap 6 mmol/L (6-16); Blood Urea Nitrogen 26 mg/dL (8-24); Bun/Creatinine Ratio 31.1 (12.0-20.0); CO2, Blood 27 mmol/L (21-32); Calcium, Blood 8.6 mg/dL (8.5-10.1); Chloride, Blood 106 mmol/L (98-108); Creatinine, Blood 0.84 mg/dL (0.40-1.00); Glomerular Filtration Rate >60 (60-); Glucose, Blood 259 mg/dL (70-99); Potassium, Blood 4.3 mmol/L (3.5-5.5); Sodium, Blood 139 mmol/L (136-145)
--- NOTE | 2019-11-19 09:53 | NUR ---
ROUNDING PT WANTS TO NAP AT THIS TIME REQUESTS NO HOURLY ROUNDING FOR 2 HOURS AND SHE WILL CALL IF HAS ANY NEEDS
--- NOTE | 2019-11-19 12:21 | NUR ---
BM PATIENT REPORTS HAd a very daRK HARD STOOL. ASKED PATIENT TO SAVE STOOL SO STAFF CAN OBSERVW IF HAS ANOTHER BM
--- NOTE | 2019-11-19 17:43 | NUR ---
SUMMARY PATIENT HAS SLEPT WHEN UNDISTURBED, NEEDS ENCOURAGEMENT TO GET OOB. ONE SMALL DARK STOOL PER PATIENT. PATIENT GIVEN PRUNE JUICE WITH DINNER PER REQUEST. ABD PAIN CONTROLLED WITH PO MEDS
[2019-11-20 04:29] LABS: International Normalized Ratio 2.05; Prothrombin Time Results 21.1 Sec (9.7-11.5)
--- NOTE | 2019-11-20 04:48 | NUR ---
SHIFT SUMMARY PT RESTED INTERMITTENTLY T/O NIGHT. AAOX4. POD#4. ABD INCISIONS C/D/I. NO NAUSEA/EMESIS THIS SHIFT. DISCOMFORT CONTROLLED WITH 2 PAIN PILLS X2 THIS SHIFT. INDEPENDENT IN ROOM. GOOD PO INTAKE + OUTPUT. AC + HS CHEMBG WITH AC COVERAGE. VSS. NO ACUTE CHANGES OVER NIGHT. HEP GTT INFUSING PER ORDERS. PT RESTING IN BED WITH CALL LIGHT IN REACH.
[2019-11-20] MEDS ORDERED: Percocet 7.5-31 EACH PO (09:41)
[2019-11-20] MEDS ORDERED: MIRALAX17 GM PO (09:41)
--- NOTE | 2019-11-20 12:09 | NUR ---
DISCHARGE PT EDUCATED ON AND RECEIVED PRINTED DISCHARGE INSTRUCTIONS AND VERB AN UNDERSTANDING. HARD RX FOR PERCOCET GIVEN TO PT + HARD RX FOR EQUIPMENT. PT CURRENTLY REFUSING HOME HEALTH. TENNIS BALL COVERER HAND NOTIFIED. MIMI FIERRO. PT GATHERED ALL PERSONAL BELONGINGS AND WAITING FOR RIDE TO GET HERE.
== END 2019-11-20 12:53 | disposition home or self-care (01) | DRG 418 ==
LOC: ER 19:51 → SURS 19:52
PROVIDERS: Emergency Medicine; Hospitalist; Internal Medicine; Pharmacist; Surgery; ADMIT Internal Medicine
PROC: BF03YZZ Plain Radiography of Gallbladder and Bile Ducts using Other Contrast (ICD-10-PCS; 2019-11-16)
PROC: 0FT44ZZ Resection of Gallbladder, Percutaneous Endoscopic Approach (ICD-10-PCS; principal; 2019-11-16 12:00)
DX: K80.21 Calculus of gallbladder without cholecystitis with obstruction (principal); G45.9 Transient cerebral ischemic attack, unspecified; I48.20 Chronic atrial fibrillation, unspecified; I50.32 Chronic diastolic (congestive) heart failure; E11.40 Type 2 diabetes mellitus with diabetic neuropathy, unspecified; J44.9 Chronic obstructive pulmonary disease, unspecified; I69.892 Facial weakness following other cerebrovascular disease; E66.9 Obesity, unspecified; E66.01 Morbid (severe) obesity due to excess calories; I11.0 Hypertensive heart disease with heart failure; E78.5 Hyperlipidemia, unspecified; Z68.39 Body mass index [BMI] 39.0-39.9, adult; F32.9 Major depressive disorder, single episode, unspecified; K21.9 Gastro-esophageal reflux disease without esophagitis; Z79.4 Long term (current) use of insulin; Z79.01 Long term (current) use of anticoagulants
CPT/HCPCS: 36415; 70450; 70551; 74300; 76705; 80048; 80053; 81001; 82947; 83690; 83735; 84100; 85025; 85027; 85049; 85610; 85730; 87086; 88304; 93005; 93010; 93880; 94640; 94760; 96374; 96375; 96376; 97110; 97112; 97163; 97166; 97530; 97535; 99285-25; A9270-GY; C1729; G0378; J0696; J1100; J1170; J1644; J1940; J2250; J2370; J2405; J2704; J2710; J3010; J3430; J7030; J7120

== ENCOUNTER 2020-02-11 12:35 | Emergency (ER) | payer OTHER ==
[~2020-02-11] VITALS: Ht 175.3 cm; Wt 122.5 kg
[~2020-02-11 12:35] MED LIST changes: +MIRALAX17 GM PO; +Percocet 7.5-31 EACH PO
[2020-02-11 13:16] LABS: Source, Urine Clean Catch
[2020-02-11 13:18] LABS: Bilirubin, Urine Neg (Neg); Blood, Urine Neg (Neg); Glucose Qualitative, Urine 4+ (Neg); Ketones, Urine Neg (Neg); Leukocyte Esterase, Urine 1+ (Neg); Nitrite, Urine Neg (Neg); Protein, Urine Neg (Neg); Specific Gravity, Urine 1.015 (1.003-1.022); Urobilinogen, Urine NORM (Normal)
[2020-02-11 13:33] LABS: Appearance, Urine Clear (Clear); Color, Urine Pale Yellow (P-Yellow)
[2020-02-11 13:34] LABS: Bacteria Many /hpf; Red Blood Cells, Urine 0-2 /hpf (0-2); Squamous Epithelial Cells Not Seen /hpf (Few)
[2020-02-11 13:37] LABS: BASOPHILS ABSOLUTE AUTO 0.08 K/mm3 (0.00-0.23); BASOPHILS PERCENT AUTO 1 % (0-2); EOSINOPHILS ABSOLUTE AUTO 0.35 K/mm3 (0.00-0.68); EOSINOPHILS PERCENT AUTO 4 % (0-6); Hematocrit 44.8 % (33.0-51.0); Hemoglobin 14.5 g/dL (11.5-16.0); IMMATURE GRAN ABSOLUTE AUTO 0.04 K/mm3 (0.00-0.10); IMMATURE GRAN PERCENT AUTO 1 % (0-1); LYMPHOCYTES ABSOLUTE AUTO 2.64 K/mm3 (0.84-5.20); LYMPHOCYTES PERCENT AUTO 30 % (21-46); MONOCYTES PERCENT AUTO 8 % (4-13); Mean Corpuscular HGB Conc 32.4 g/dL (31.5-36.5); Mean Corpuscular Volume 90 fL (80-100); Mean Platelet Volume 11.9 fL (9.1-12.4); NEUTROPHILS ABSOLUTE AUTO 4.92 K/mm3 (1.96-9.15); NEUTROPHILS PERCENT AUTO 56 % (41-73); Platelet Count 294 K/mm3 (150-400); RDW Coefficient Variation 13.2 % (11.7-14.2); RDW Standard Deviation 43.4 fL (35.1-46.3); White Blood Cell Count 8.73 K/mm3 (4.00-11.30)
[2020-02-11 13:49] LABS: Alanine Aminotransfer (ALT/SGP 24 U/L (12-78); Albumin, Blood 3.7 g/dL (3.4-5.0); Albumin/Globulin Ratio 0.8 (0.8-1.8); Alk Phos 117 U/L (50-136); Anion Gap 3 mmol/L (6-16); Aspartate Aminotrans (AST/SGOT 17 U/L (12-37); Bilirubin, Total 0.4 mg/dL (0.1-1.0); Blood Urea Nitrogen 28 mg/dL (8-24); Bun/Creatinine Ratio 31.9 (12.0-20.0); CO2, Blood 31 mmol/L (21-32); Calcium, Blood 9.2 mg/dL (8.5-10.1); Chloride, Blood 101 mmol/L (98-108); Creatinine, Blood 0.88 mg/dL (0.40-1.00); Globulin, Blood 4.5 g/dL (2.2-4.0); Glomerular Filtration Rate >60 (60-); Glucose, Blood 416 mg/dL (70-99); Potassium, Blood 4.6 mmol/L (3.5-5.5); Sodium, Blood 135 mmol/L (136-145); Total Protein, Blood 8.2 g/dL (6.4-8.2)
== END 2020-02-11 15:30 | disposition home or self-care (01) ==
LOC: ER 12:35
PROVIDERS: Physician Assistant
DX: R41.82 Altered mental status, unspecified (principal); E86.0 Dehydration; G47.00 Insomnia, unspecified; E11.40 Type 2 diabetes mellitus with diabetic neuropathy, unspecified; I10 Essential (primary) hypertension; J44.9 Chronic obstructive pulmonary disease, unspecified; I48.91 Unspecified atrial fibrillation; F32.9 Major depressive disorder, single episode, unspecified; F41.9 Anxiety disorder, unspecified; Z91.048 Other nonmedicinal substance allergy status; E66.01 Morbid (severe) obesity due to excess calories; Z88.5 Allergy status to narcotic agent; Z88.8 Allergy status to other drugs, medicaments and biological substances; Z79.899 Other long term (current) drug therapy; Z79.4 Long term (current) use of insulin; Z87.891 Personal history of nicotine dependence; Z68.39 Body mass index [BMI] 39.0-39.9, adult
CPT/HCPCS: 70450; 80053; 81001; 85025; 87077; 87086; 87186; 93005; 93010; 99284-25

== ENCOUNTER 2020-04-05 06:52 | Day surgery (SDC) | payer OTHER ==
[~2020-04-05] VITALS: Ht 175.3 cm; Wt 118.0 kg
--- NOTE | 2020-04-05 08:05 | NUR ---
04/05/20 0805 Suad Bush CASE CANCELLED BY DR RICO DUE TO CBG.
== END 2020-04-05 07:49 | disposition home or self-care (01) ==
LOC: ORSCSDS 06:52
DX: M48.062 Spinal stenosis, lumbar region with neurogenic claudication (principal); Z53.9 Procedure and treatment not carried out, unspecified reason
CPT/HCPCS: 82947; J0171; J0690; J2250; J2704; J3010; J7120

== ENCOUNTER 2020-05-05 19:49 | Emergency (ER) | payer OTHER ==
[~2020-05-05] VITALS: Ht 175.3 cm; Wt 117.9 kg
[2020-05-05 20:16] LABS: BASOPHILS ABSOLUTE AUTO 0.08 K/mm3 (0.00-0.23); BASOPHILS PERCENT AUTO 1 % (0-2); EOSINOPHILS ABSOLUTE AUTO 0.34 K/mm3 (0.00-0.68); EOSINOPHILS PERCENT AUTO 4 % (0-6); Hematocrit 42.7 % (33.0-51.0); Hemoglobin 13.8 g/dL (11.5-16.0); IMMATURE GRAN ABSOLUTE AUTO 0.03 K/mm3 (0.00-0.10); IMMATURE GRAN PERCENT AUTO 0 % (0-1); LYMPHOCYTES ABSOLUTE AUTO 2.91 K/mm3 (0.84-5.20); LYMPHOCYTES PERCENT AUTO 30 % (21-46); MONOCYTES ABSOLUTE AUTO 0.73 K/mm3 (0.16-1.47); MONOCYTES PERCENT AUTO 8 % (4-13); Mean Corpuscular HGB 29.5 pg (26.0-34.0); Mean Corpuscular HGB Conc 32.3 g/dL (31.5-36.5); Mean Corpuscular Volume 91 fL (80-100); Mean Platelet Volume 10.9 fL (9.1-12.4); NEUTROPHILS ABSOLUTE AUTO 5.52 K/mm3 (1.96-9.15); NEUTROPHILS PERCENT AUTO 58 % (41-73); Platelet Count 313 K/mm3 (150-400); RDW Coefficient Variation 13.7 % (11.7-14.2); RDW Standard Deviation 46.3 fL (35.1-46.3); Red Blood Cell Count 4.68 M/mm3 (3.80-5.20); White Blood Cell Count 9.61 K/mm3 (4.00-11.30)
[2020-05-05 20:35] LABS: Alanine Aminotransfer (ALT/SGP 21 U/L (12-78); Albumin, Blood 3.6 g/dL (3.4-5.0); Albumin/Globulin Ratio 0.9 (0.8-1.8); Alk Phos 103 U/L (50-136); Anion Gap 7 mmol/L (6-16); Aspartate Aminotrans (AST/SGOT 13 U/L (12-37); Bilirubin, Total 0.3 mg/dL (0.1-1.0); Blood Urea Nitrogen 19 mg/dL (8-24); Bun/Creatinine Ratio 29.1 (12.0-20.0); CO2, Blood 25 mmol/L (21-32); Chloride, Blood 106 mmol/L (98-108); Creatinine, Blood 0.65 mg/dL (0.40-1.00); Globulin, Blood 4.1 g/dL (2.2-4.0); Glomerular Filtration Rate >60 (60-); Glucose, Blood 290 mg/dL (70-99); Potassium, Blood 4.2 mmol/L (3.5-5.5); Sodium, Blood 138 mmol/L (136-145); Total Protein, Blood 7.7 g/dL (6.4-8.2)
[2020-05-05 22:52] LABS: Source, Urine Clean Catch
[2020-05-05] MEDS ORDERED: Bactrim Ds Tab1 EACH PO (22:54)
[2020-05-05 22:55] LABS: Appearance, Urine Cloudy (Clear); Bilirubin, Urine Neg (Neg); Blood, Urine 3+ (Neg); Color, Urine Yellow (P-Yellow); Glucose Qualitative, Urine 4+ (Neg); Ketones, Urine 1+ (Neg); Leukocyte Esterase, Urine 3+ (Neg); Nitrite, Urine Pos (Neg); Protein, Urine 2+ (Neg); Specific Gravity, Urine 1.025 (1.003-1.022); Urobilinogen, Urine NORM (Normal)
[2020-05-05 23:06] LABS: Bacteria Many /hpf; Red Blood Cells, Urine 0-2 /hpf (0-2); Squamous Epithelial Cells Few /hpf (Few); White Blood Cells, Urine 50-100 /hpf (0-5)
== END 2020-05-05 23:14 | disposition home or self-care (01) ==
LOC: ER 19:49
PROVIDERS: Physician Assistant
DX: N39.0 Urinary tract infection, site not specified (principal); E11.40 Type 2 diabetes mellitus with diabetic neuropathy, unspecified; I10 Essential (primary) hypertension; F32.9 Major depressive disorder, single episode, unspecified; J44.9 Chronic obstructive pulmonary disease, unspecified; I48.91 Unspecified atrial fibrillation; Z91.09 Other allergy status, other than to drugs and biological substances; Z88.6 Allergy status to analgesic agent; Z88.8 Allergy status to other drugs, medicaments and biological substances; Z79.4 Long term (current) use of insulin; Z79.01 Long term (current) use of anticoagulants; Z79.899 Other long term (current) drug therapy; Z87.891 Personal history of nicotine dependence
CPT/HCPCS: 36415; 74176; 80053; 81001; 83690; 85025; 87077; 87086; 87186; 99284-25; A9270-GY

== ENCOUNTER 2020-05-28 09:49 | Emergency (ER) | payer OTHER ==
[~2020-05-28] VITALS: Ht 175.3 cm; Wt 117.9 kg
[2020-05-28 10:58] LABS: BASOPHILS ABSOLUTE AUTO 0.08 K/mm3 (0.00-0.23); BASOPHILS PERCENT AUTO 1 % (0-2); EOSINOPHILS ABSOLUTE AUTO 0.33 K/mm3 (0.00-0.68); EOSINOPHILS PERCENT AUTO 4 % (0-6); Hematocrit 41.9 % (33.0-51.0); Hemoglobin 13.6 g/dL (11.5-16.0); IMMATURE GRAN ABSOLUTE AUTO 0.03 K/mm3 (0.00-0.10); IMMATURE GRAN PERCENT AUTO 0 % (0-1); LYMPHOCYTES ABSOLUTE AUTO 2.28 K/mm3 (0.84-5.20); LYMPHOCYTES PERCENT AUTO 26 % (21-46); MONOCYTES ABSOLUTE AUTO 0.72 K/mm3 (0.16-1.47); MONOCYTES PERCENT AUTO 8 % (4-13); Mean Corpuscular HGB 30.1 pg (26.0-34.0); Mean Corpuscular HGB Conc 32.5 g/dL (31.5-36.5); Mean Corpuscular Volume 93 fL (80-100); Mean Platelet Volume 10.8 fL (9.1-12.4); NEUTROPHILS ABSOLUTE AUTO 5.25 K/mm3 (1.96-9.15); NEUTROPHILS PERCENT AUTO 61 % (41-73); Platelet Count 282 K/mm3 (150-400); RDW Coefficient Variation 13.5 % (11.7-14.2); Red Blood Cell Count 4.52 M/mm3 (3.80-5.20); White Blood Cell Count 8.69 K/mm3 (4.00-11.30)
[2020-05-28 11:14] LABS: Alanine Aminotransfer (ALT/SGP 18 U/L (12-78); Albumin, Blood 3.4 g/dL (3.4-5.0); Albumin/Globulin Ratio 0.9 (0.8-1.8); Alk Phos 108 U/L (50-136); Anion Gap 4 mmol/L (6-16); Aspartate Aminotrans (AST/SGOT 16 U/L (12-37); Bilirubin, Total 0.5 mg/dL (0.1-1.0); Blood Urea Nitrogen 15 mg/dL (8-24); Bun/Creatinine Ratio 22.6 (12.0-20.0); CO2, Blood 30 mmol/L (21-32); Chloride, Blood 107 mmol/L (98-108); Creatinine, Blood 0.67 mg/dL (0.40-1.00); Globulin, Blood 3.9 g/dL (2.2-4.0); Glomerular Filtration Rate >60 (60-); Glucose, Blood 110 mg/dL (70-99); Potassium, Blood 4.4 mmol/L (3.5-5.5); Sodium, Blood 141 mmol/L (136-145); Total Protein, Blood 7.3 g/dL (6.4-8.2)
[2020-05-28 11:16] LABS: International Normalized Ratio 1.76; Prothrombin Time Results 18.2 Sec (9.7-11.5)
[2020-05-28] MEDS ORDERED: Ativan1 MG PO (12:18)
== END 2020-05-28 12:26 | disposition home or self-care (01) ==
LOC: ER 09:49
PROVIDERS: Emergency Medicine
DX: J44.9 Chronic obstructive pulmonary disease, unspecified (principal); R06.1 Stridor; F41.9 Anxiety disorder, unspecified; E11.40 Type 2 diabetes mellitus with diabetic neuropathy, unspecified; I10 Essential (primary) hypertension; F32.9 Major depressive disorder, single episode, unspecified; E78.1 Pure hyperglyceridemia; I48.91 Unspecified atrial fibrillation; Z91.09 Other allergy status, other than to drugs and biological substances; Z88.6 Allergy status to analgesic agent; Z88.8 Allergy status to other drugs, medicaments and biological substances; Z79.4 Long term (current) use of insulin; Z86.73 Personal history of transient ischemic attack (TIA), and cerebral infarction without residual deficits; Z79.01 Long term (current) use of anticoagulants; Z87.891 Personal history of nicotine dependence; Z79.899 Other long term (current) drug therapy; Z20.828 Contact with and (suspected) exposure to other viral communicable diseases
CPT/HCPCS: 36415; 71045; 80053; 85025; 85610; 93005; 93010; 96361; 96374; 96375; 99285-25; J2060; J2930; J7030; U0002

== ENCOUNTER 2020-06-05 15:05 | Emergency (ER) | payer OTHER ==
[~2020-06-05] VITALS: Ht 175.3 cm; Wt 117.9 kg
[~2020-06-05 15:05] MED LIST changes: +Ativan1 MG PO
[2020-06-05 16:10] LABS: BASOPHILS ABSOLUTE AUTO 0.07 K/mm3 (0.00-0.23); BASOPHILS PERCENT AUTO 1 % (0-2); EOSINOPHILS ABSOLUTE AUTO 0.28 K/mm3 (0.00-0.68); EOSINOPHILS PERCENT AUTO 3 % (0-6); Hematocrit 42.9 % (33.0-51.0); Hemoglobin 13.8 g/dL (11.5-16.0); IMMATURE GRAN ABSOLUTE AUTO 0.03 K/mm3 (0.00-0.10); IMMATURE GRAN PERCENT AUTO 0 % (0-1); LYMPHOCYTES ABSOLUTE AUTO 3.15 K/mm3 (0.84-5.20); LYMPHOCYTES PERCENT AUTO 30 % (21-46); MONOCYTES ABSOLUTE AUTO 0.68 K/mm3 (0.16-1.47); MONOCYTES PERCENT AUTO 7 % (4-13); Mean Corpuscular HGB 29.4 pg (26.0-34.0); Mean Corpuscular HGB Conc 32.2 g/dL (31.5-36.5); Mean Corpuscular Volume 92 fL (80-100); Mean Platelet Volume 11.4 fL (9.1-12.4); NEUTROPHILS ABSOLUTE AUTO 6.21 K/mm3 (1.96-9.15); NEUTROPHILS PERCENT AUTO 60 % (41-73); Platelet Count 321 K/mm3 (150-400); RDW Coefficient Variation 13.7 % (11.7-14.2); RDW Standard Deviation 46.4 fL (35.1-46.3); Red Blood Cell Count 4.69 M/mm3 (3.80-5.20); White Blood Cell Count 10.42 K/mm3 (4.00-11.30)
[2020-06-05 16:33] LABS: International Normalized Ratio 1.13
[2020-06-05 16:43] LABS: Alanine Aminotransfer (ALT/SGP 20 U/L (12-78); Albumin, Blood 3.2 g/dL (3.4-5.0); Albumin/Globulin Ratio 0.8 (0.8-1.8); Alk Phos 112 U/L (50-136); Anion Gap 7 mmol/L (6-16); Aspartate Aminotrans (AST/SGOT 10 U/L (12-37); Bilirubin, Total 0.6 mg/dL (0.1-1.0); Blood Urea Nitrogen 19 mg/dL (8-24); Bun/Creatinine Ratio 26.5 (12.0-20.0); CO2, Blood 26 mmol/L (21-32); Calcium, Blood 9.3 mg/dL (8.5-10.1); Chloride, Blood 107 mmol/L (98-108); Creatinine, Blood 0.72 mg/dL (0.40-1.00); Free Thyroxine 1.22 ng/dL (0.70-1.60); Glomerular Filtration Rate >60 (60-); Glucose, Blood 295 mg/dL (70-99); Potassium, Blood 4.2 mmol/L (3.5-5.5); Sodium, Blood 140 mmol/L (136-145); Total Protein, Blood 7.2 g/dL (6.4-8.2); Troponin I <0.015 ng/mL (0.000-0.040)
[2020-06-05 16:53] LABS: Magnesium, Blood 1.9 mg/dL (1.6-2.4)
== END 2020-06-05 18:49 | disposition home or self-care (01) ==
LOC: ER 15:05
PROVIDERS: Emergency Medicine
DX: I48.91 Unspecified atrial fibrillation (principal); E11.65 Type 2 diabetes mellitus with hyperglycemia; R79.1 Abnormal coagulation profile; E11.9 Type 2 diabetes mellitus without complications; J44.9 Chronic obstructive pulmonary disease, unspecified; Z91.09 Other allergy status, other than to drugs and biological substances; Z88.6 Allergy status to analgesic agent; Z88.8 Allergy status to other drugs, medicaments and biological substances; Z79.899 Other long term (current) drug therapy; Z79.01 Long term (current) use of anticoagulants; Z86.73 Personal history of transient ischemic attack (TIA), and cerebral infarction without residual deficits; Z87.891 Personal history of nicotine dependence; Z79.4 Long term (current) use of insulin
CPT/HCPCS: 71045; 80053; 83735; 84439; 84443; 84484; 85025; 85610; 93005; 93010; 96361; 96374; 96375; 99285-25; J0780; J1200; J3360; J7030

== ENCOUNTER → 2020-06-09 | Outpatient (CLI) | payer OTHER | END | disposition home or self-care (01) | LOC: LAB 11:55 → LAB SHORT 11:55 | DX: R30.9 Painful micturition, unspecified (principal) | CPT/HCPCS: 87086 ==

== ENCOUNTER 2020-06-10 04:17 | Emergency (ER) | payer OTHER ==
[~2020-06-10] VITALS: Ht 175.3 cm; Wt 117.9 kg
[2020-06-10 04:37] LABS: BASOPHILS ABSOLUTE AUTO 0.09 K/mm3 (0.00-0.23); BASOPHILS PERCENT AUTO 1 % (0-2); EOSINOPHILS ABSOLUTE AUTO 0.29 K/mm3 (0.00-0.68); EOSINOPHILS PERCENT AUTO 3 % (0-6); Hematocrit 41.8 % (33.0-51.0); Hemoglobin 13.1 g/dL (11.5-16.0); IMMATURE GRAN ABSOLUTE AUTO 0.03 K/mm3 (0.00-0.10); IMMATURE GRAN PERCENT AUTO 0 % (0-1); LYMPHOCYTES ABSOLUTE AUTO 2.95 K/mm3 (0.84-5.20); LYMPHOCYTES PERCENT AUTO 34 % (21-46); MONOCYTES PERCENT AUTO 8 % (4-13); Mean Corpuscular HGB Conc 31.3 g/dL (31.5-36.5); Mean Corpuscular Volume 93 fL (80-100); NEUTROPHILS ABSOLUTE AUTO 4.63 K/mm3 (1.96-9.15); NEUTROPHILS PERCENT AUTO 53 % (41-73); Platelet Count 299 K/mm3 (150-400); RDW Coefficient Variation 13.9 % (11.7-14.2); RDW Standard Deviation 46.6 fL (35.1-46.3); Red Blood Cell Count 4.52 M/mm3 (3.80-5.20); White Blood Cell Count 8.69 K/mm3 (4.00-11.30)
[2020-06-10 04:48] LABS: Source, Urine Clean Catch
[2020-06-10 04:52] LABS: Bilirubin, Urine Neg (Neg); Blood, Urine 1+ (Neg); Glucose Qualitative, Urine 4+ (Neg); Ketones, Urine Neg (Neg); Leukocyte Esterase, Urine Neg (Neg); Nitrite, Urine Neg (Neg); Protein, Urine 1+ (Neg); Urobilinogen, Urine NORM (Normal)
[2020-06-10 04:54] LABS: Appearance, Urine Clear (Clear); Color, Urine Yellow (P-Yellow)
[2020-06-10 04:58] LABS: Alanine Aminotransfer (ALT/SGP 27 U/L (12-78); Albumin, Blood 3.6 g/dL (3.4-5.0); Albumin/Globulin Ratio 0.9 (0.8-1.8); Alk Phos 114 U/L (50-136); Anion Gap 7 mmol/L (6-16); Aspartate Aminotrans (AST/SGOT 16 U/L (12-37); Bilirubin, Total 0.1 mg/dL (0.1-1.0); Blood Urea Nitrogen 18 mg/dL (8-24); Bun/Creatinine Ratio 20.2 (12.0-20.0); CO2, Blood 26 mmol/L (21-32); Chloride, Blood 105 mmol/L (98-108); Creatinine, Blood 0.89 mg/dL (0.40-1.00); Globulin, Blood 3.9 g/dL (2.2-4.0); Glomerular Filtration Rate >60 (60-); Glucose, Blood 400 mg/dL (70-99); Potassium, Blood 4.2 mmol/L (3.5-5.5); Sodium, Blood 138 mmol/L (136-145); Total Protein, Blood 7.5 g/dL (6.4-8.2)
[2020-06-10 05:05] LABS: Bacteria Few /hpf; Red Blood Cells, Urine 0-2 /hpf (0-2); Squamous Epithelial Cells Few /hpf (Few)
== END 2020-06-10 05:35 | disposition home or self-care (01) ==
LOC: ER 04:17
PROVIDERS: Emergency Medicine
DX: E11.65 Type 2 diabetes mellitus with hyperglycemia (principal); R10.31 Right lower quadrant pain; E11.40 Type 2 diabetes mellitus with diabetic neuropathy, unspecified; I10 Essential (primary) hypertension; F32.9 Major depressive disorder, single episode, unspecified; F41.9 Anxiety disorder, unspecified; J44.9 Chronic obstructive pulmonary disease, unspecified; E78.1 Pure hyperglyceridemia; I48.91 Unspecified atrial fibrillation; Z86.73 Personal history of transient ischemic attack (TIA), and cerebral infarction without residual deficits; Z87.891 Personal history of nicotine dependence; Z91.09 Other allergy status, other than to drugs and biological substances; Z88.6 Allergy status to analgesic agent; Z88.8 Allergy status to other drugs, medicaments and biological substances; Z79.4 Long term (current) use of insulin; Z79.82 Long term (current) use of aspirin; Z79.01 Long term (current) use of anticoagulants; Z79.899 Other long term (current) drug therapy
CPT/HCPCS: 36415; 74176; 80053; 81001; 83605; 83690; 85025; 96361; 96374; 96375; 99284-25; J2270; J2405; J7030

== ENCOUNTER 2020-07-08 01:53 | Emergency (ER) | payer OTHER ==
[~2020-07-08] VITALS: Ht 175.3 cm; Wt 120.2 kg
[2020-07-08] MEDS ORDERED: CYCL10 PO (04:09)
== END 2020-07-08 04:25 | disposition home or self-care (01) ==
LOC: ER 01:53
DX: M54.42 Lumbago with sciatica, left side (principal); E11.9 Type 2 diabetes mellitus without complications; J44.9 Chronic obstructive pulmonary disease, unspecified; Z87.891 Personal history of nicotine dependence; Z86.73 Personal history of transient ischemic attack (TIA), and cerebral infarction without residual deficits
CPT/HCPCS: 99283; A9270

== ENCOUNTER 2020-07-19 17:41 | Emergency (ER) | payer OTHER ==
[~2020-07-19] VITALS: Ht 175.3 cm; Wt 121.6 kg
[2020-07-19 18:18] LABS: BASOPHILS ABSOLUTE AUTO 0.08 K/mm3 (0.00-0.23); BASOPHILS PERCENT AUTO 1 % (0-2); EOSINOPHILS ABSOLUTE AUTO 0.32 K/mm3 (0.00-0.68); EOSINOPHILS PERCENT AUTO 4 % (0-6); Hematocrit 37.7 % (33.0-51.0); Hemoglobin 11.9 g/dL (11.5-16.0); IMMATURE GRAN ABSOLUTE AUTO 0.03 K/mm3 (0.00-0.10); IMMATURE GRAN PERCENT AUTO 0 % (0-1); LYMPHOCYTES PERCENT AUTO 31 % (21-46); MONOCYTES ABSOLUTE AUTO 0.67 K/mm3 (0.16-1.47); MONOCYTES PERCENT AUTO 8 % (4-13); Mean Corpuscular HGB 29.1 pg (26.0-34.0); Mean Corpuscular HGB Conc 31.6 g/dL (31.5-36.5); Mean Corpuscular Volume 92 fL (80-100); NEUTROPHILS ABSOLUTE AUTO 4.53 K/mm3 (1.96-9.15); NEUTROPHILS PERCENT AUTO 56 % (41-73); Platelet Count 278 K/mm3 (150-400); RDW Coefficient Variation 14.1 % (11.7-14.2); RDW Standard Deviation 47.6 fL (35.1-46.3); Red Blood Cell Count 4.09 M/mm3 (3.80-5.20); White Blood Cell Count 8.13 K/mm3 (4.00-11.30)
[2020-07-19 19:25] LABS: Alanine Aminotransfer (ALT/SGP 40 U/L (12-78); Albumin, Blood 3.3 g/dL (3.4-5.0); Albumin/Globulin Ratio 0.9 (0.8-1.8); Alk Phos 110 U/L (50-136); Anion Gap 2 mmol/L (6-16); Aspartate Aminotrans (AST/SGOT 44 U/L (12-37); Bilirubin, Total 0.5 mg/dL (0.1-1.0); Blood Urea Nitrogen 15 mg/dL (8-24); Bun/Creatinine Ratio 20.9 (12.0-20.0); CO2, Blood 29 mmol/L (21-32); Calcium, Blood 8.8 mg/dL (8.5-10.1); Chloride, Blood 114 mmol/L (98-108); Creatinine, Blood 0.72 mg/dL (0.40-1.00); Globulin, Blood 3.6 g/dL (2.2-4.0); Glomerular Filtration Rate >60 (60-); Glucose, Blood 73 mg/dL (70-99); Potassium, Blood 4.8 mmol/L (3.5-5.5); Sodium, Blood 145 mmol/L (136-145); Total Protein, Blood 6.9 g/dL (6.4-8.2); Troponin I <0.015 ng/mL (0.000-0.040)
[2020-07-19] MEDS ORDERED: MINO50 PO (20:13)
[2020-07-19 20:42] LABS: International Normalized Ratio 1.94
== END 2020-07-19 20:47 | disposition home or self-care (01) ==
LOC: ER 17:41
PROVIDERS: Emergency Medicine; Physician Assistant
DX: L03.011 Cellulitis of right finger (principal); E11.40 Type 2 diabetes mellitus with diabetic neuropathy, unspecified; I10 Essential (primary) hypertension; F32.9 Major depressive disorder, single episode, unspecified; F41.9 Anxiety disorder, unspecified; J44.9 Chronic obstructive pulmonary disease, unspecified; I48.91 Unspecified atrial fibrillation; Z79.4 Long term (current) use of insulin; Z79.01 Long term (current) use of anticoagulants; Z79.899 Other long term (current) drug therapy; Z91.09 Other allergy status, other than to drugs and biological substances; Z88.6 Allergy status to analgesic agent; Z88.8 Allergy status to other drugs, medicaments and biological substances; Z87.891 Personal history of nicotine dependence
CPT/HCPCS: 36415; 71045; 80053; 84484; 85025; 85610; 93005; 93010; 99284-25

== ENCOUNTER 2020-08-14 13:03 | Observation (INO) | payer OTHER ==
[~2020-08-14] VITALS: Ht 172.7 cm; Wt 113.4 kg
[~2020-08-14 13:03] MED LIST changes: +MINO50 PO
[2020-08-14] MEDS ORDERED: GABA300 PO (13:22)
[2020-08-14] MEDS ORDERED: VITAMIN D5000 UNIT PO (13:24)
[2020-08-14 13:55] LABS: BASOPHILS PERCENT AUTO 1 % (0-2); EOSINOPHILS ABSOLUTE AUTO 0.22 K/mm3 (0.00-0.68); EOSINOPHILS PERCENT AUTO 3 % (0-6); Hematocrit 41.8 % (33.0-51.0); Hemoglobin 13.2 g/dL (11.5-16.0); IMMATURE GRAN ABSOLUTE AUTO 0.03 K/mm3 (0.00-0.10); IMMATURE GRAN PERCENT AUTO 0 % (0-1); LYMPHOCYTES ABSOLUTE AUTO 2.73 K/mm3 (0.84-5.20); LYMPHOCYTES PERCENT AUTO 36 % (21-46); MONOCYTES ABSOLUTE AUTO 0.66 K/mm3 (0.16-1.47); MONOCYTES PERCENT AUTO 9 % (4-13); Mean Corpuscular HGB 28.8 pg (26.0-34.0); Mean Corpuscular HGB Conc 31.6 g/dL (31.5-36.5); Mean Corpuscular Volume 91 fL (80-100); Mean Platelet Volume 11.3 fL (9.1-12.4); NEUTROPHILS ABSOLUTE AUTO 3.85 K/mm3 (1.96-9.15); NEUTROPHILS PERCENT AUTO 51 % (41-73); Platelet Count 327 K/mm3 (150-400); RDW Coefficient Variation 14.2 % (11.7-14.2); RDW Standard Deviation 47.7 fL (35.1-46.3); Red Blood Cell Count 4.59 M/mm3 (3.80-5.20); White Blood Cell Count 7.59 K/mm3 (4.00-11.30)
[2020-08-14 14:16] LABS: Alanine Aminotransfer (ALT/SGP 22 U/L (12-78); Albumin, Blood 3.2 g/dL (3.4-5.0); Albumin/Globulin Ratio 0.9 (0.8-1.8); Alk Phos 100 U/L (50-136); Anion Gap 4 mmol/L (6-16); Aspartate Aminotrans (AST/SGOT 13 U/L (12-37); Bilirubin, Total 0.4 mg/dL (0.1-1.0); Blood Urea Nitrogen 17 mg/dL (8-24); CO2, Blood 30 mmol/L (21-32); Calcium, Blood 8.6 mg/dL (8.5-10.1); Chloride, Blood 111 mmol/L (98-108); Creatinine, Blood 0.71 mg/dL (0.40-1.00); Ethanol (Alcohol), Blood, Med <3 mg/dL; Globulin, Blood 3.6 g/dL (2.2-4.0); Glomerular Filtration Rate >60 (60-); Glucose, Blood 139 mg/dL (70-99); Potassium, Blood 3.9 mmol/L (3.5-5.5); Sodium, Blood 145 mmol/L (136-145); Total Protein, Blood 6.8 g/dL (6.4-8.2)
[2020-08-14 14:31] LABS: U Benzodiazapine Screen DETECTED; U Methadone Screen DETECTED
[2020-08-14 14:33] LABS: U Amphetamine Screen Not Detected; U Barbituate Screen Not Detected; U Buprenorphine Screen Not Detected; U Cannabinoids Screen Not Detected; U Cocaine Screen Not Detected; U Methamphetamine Screen Not Detected; U Opiates Screen Not Detected; U Oxycodone Screen Not Detected; U Phencyclidine Screen Not Detected; U Propoxyphene Screen Not Detected
[2020-08-14] MEDS ORDERED: WARF5 PO ×2 (14:40→14:41)
[2020-08-14 14:50] LABS: Prothrombin Time Results 49.7 Sec (9.7-11.5)
[2020-08-14 14:52] LABS: International Normalized Ratio 5.09
[2020-08-14] MEDS ORDERED: DOLOPHINE HCL PO (18:39)
[2020-08-14] MEDS ORDERED: OXYB5 PO (18:41)
--- NOTE | 2020-08-14 19:45 | NUR ---
ADMIT TO FLOOR AND SWALLOW EVAL. DR. LANDRY AND DR. REID WERE BOTH NOTIFIED AND ALERTED NPO ORDERS AND MISSING FLUID ORDER. PER CLARIFICATION STARTED BEDSIDE SWALLOW EVAL, STOPPED EVAL AFTER PT REPORTED LACK OF GAG REFLEX. PASSED ON INFORMATION TO RUBBER GOODS TESTER WATER RN. PT ALERT AND ORIENTED. INITIAL NEURO ASSESSMENT DONE PRIOR TO MRI. SEE NEURO ASSESSMENTS. PT CONT. TO REPORT IMPROVEMENT OF SS THAT BROUGHT HER IN.
--- NOTE | 2020-08-15 00:49 | NUR ---
PT is diabetic IDDM & she says she has been hypoglycemic multiple times recently on BID long acting insulin. Says BG in the 30s & 40s, with PT recently being found down. She says A1C was 15 now down to 9 with irregular eating pattern & insulin. PT says she goes all day without eating despite insulin use. HS BG 83 PT NPO passes swallow eval & fed 100% meal Held long acting insulin due to concern of multiple hypoglycemic reactions. Rechecked BG after midnight 185 & discussed need to avoid hypoglycemia. PT agreed to take 40 units semglee & eat again. Appetite good no difficulty with swallow despite slight lt facial droop. PT up to bathroom med formed BM. CO headrush after geing up to bathroom for extended period. Continues with numbness & tingling lt elbow to fingertips but good strenghts.
[2020-08-15 05:12] LABS: BASOPHILS ABSOLUTE AUTO 0.07 K/mm3 (0.00-0.23); BASOPHILS PERCENT AUTO 1 % (0-2); EOSINOPHILS ABSOLUTE AUTO 0.23 K/mm3 (0.00-0.68); EOSINOPHILS PERCENT AUTO 3 % (0-6); Hematocrit 39.6 % (33.0-51.0); Hemoglobin 12.1 g/dL (11.5-16.0); IMMATURE GRAN ABSOLUTE AUTO 0.02 K/mm3 (0.00-0.10); IMMATURE GRAN PERCENT AUTO 0 % (0-1); LYMPHOCYTES ABSOLUTE AUTO 3.24 K/mm3 (0.84-5.20); LYMPHOCYTES PERCENT AUTO 37 % (21-46); MONOCYTES ABSOLUTE AUTO 0.64 K/mm3 (0.16-1.47); MONOCYTES PERCENT AUTO 7 % (4-13); Mean Corpuscular HGB 28.8 pg (26.0-34.0); Mean Corpuscular HGB Conc 30.6 g/dL (31.5-36.5); Mean Corpuscular Volume 94 fL (80-100); Mean Platelet Volume 11.1 fL (9.1-12.4); NEUTROPHILS ABSOLUTE AUTO 4.55 K/mm3 (1.96-9.15); NEUTROPHILS PERCENT AUTO 52 % (41-73); Platelet Count 286 K/mm3 (150-400); RDW Coefficient Variation 14.3 % (11.7-14.2); RDW Standard Deviation 49.4 fL (35.1-46.3); White Blood Cell Count 8.75 K/mm3 (4.00-11.30)
[2020-08-15 05:39] LABS: Anion Gap 6 mmol/L (6-16); Blood Urea Nitrogen 20 mg/dL (8-24); Bun/Creatinine Ratio 24.5 (12.0-20.0); CO2, Blood 26 mmol/L (21-32); Calcium, Blood 8.4 mg/dL (8.5-10.1); Chloride, Blood 110 mmol/L (98-108); Creatinine, Blood 0.82 mg/dL (0.40-1.00); Glomerular Filtration Rate >60 (60-); Glucose, Blood 309 mg/dL (70-99); Potassium, Blood 4.2 mmol/L (3.5-5.5); Sodium, Blood 142 mmol/L (136-145)
[2020-08-15 05:43] LABS: Prothrombin Time Results 40.3 Sec (9.7-11.5)
[2020-08-15 05:45] LABS: International Normalized Ratio 4.08
--- NOTE | 2020-08-15 07:28 | NUR ---
PT with hx of rt cva 7 years ago with recovery after rehab. Found unresponsive at home multiple recent hypoglycemic episodes reported. Sl lt facial droop but able to swallow without difficulty on nursing screen. fed soft ADA diet & delayed semglee insulin for bg 83 until established PT able to tolerate diet. PT has lt ac iv oozing had critical high INR trending down to 4.8 this AM. Slightly unsteady gait up with standby assist to bathroom several times. MRI & head CT neg for new acute CVA.
--- NOTE | 2020-08-15 13:00 | NUR ---
Patient is sitting up in bed and resting. Patient tells me about her health issues and her desire to walk again. Patient then talks at length about her family unit complications and the heavy amount of stress she is carrying because of the friction and tension. Patient also shares about several family memembers who have been diagnosed with COVID-19. Patient is tearful at times and is amenable to prayer. Patient responds very well to prayer and shows a noticeable elevstion in mood. Patient then explains about her shawn and all that it means to her. I normalize patient's experience, reinforce helpful attitudes and practices and provide pastoral financial aid counselor and prayer. Patient responds well and shows signs of restored shawn and reduced stress. I will continue to remain available to patient and family.
[2020-08-15 14:21] LABS: Hematocrit 39.6 % (33.0-51.0); Hemoglobin 12.3 g/dL (11.5-16.0); Mean Corpuscular HGB 28.8 pg (26.0-34.0); Mean Corpuscular HGB Conc 31.1 g/dL (31.5-36.5); Mean Corpuscular Volume 93 fL (80-100); Mean Platelet Volume 10.9 fL (9.1-12.4); Platelet Count 291 K/mm3 (150-400); RDW Coefficient Variation 14.4 % (11.7-14.2); RDW Standard Deviation 48.7 fL (35.1-46.3); Red Blood Cell Count 4.27 M/mm3 (3.80-5.20); White Blood Cell Count 7.53 K/mm3 (4.00-11.30)
--- NOTE | 2020-08-15 18:26 | NUR ---
SHIFT SUMMARY: CBG ELEVATED > 300 BEFORE LUNCH; DR. HERNANDEZ CHANGED INSULIN ORDERS SLIGHTLY. NO EVENTS ON TELEMETRY, SR 80'S. DENIED PAIN. GAVE 0900 DOSE OF GABAPENTIN OF 900 MG; PT STATED SHE ONLY TAKES 300 MG AT HS SO SHE REFUSED SUBSEQUENT DOSES. NO CHANGES IN NEURO STATUS. GETTING UP TO BR WITH SBA. GOOD APPETITE, SWALLOWING FINE. WEARING SCD'S WHILE IN BED. WAS UP IN CHAIR MOST OF THE DAY. IS HOPING TO BE DISCHARGED TOMORROW.
--- NOTE | 2020-08-16 06:09 | NUR ---
PT without complaints of increased neuro deficits. Slept in had to be woken for HS meds. Fed HS snack with 60 units semglee insulin. urine cloudy off IV fluids. Medicated x 1 for back pain with helpful effect. PT has had home health in the past, may benefit from Home health services to provide supervision with rx to tx IDDM & anticoagulants.
[2020-08-16 12:58] LABS: International Normalized Ratio 2.25
--- NOTE | 2020-08-16 16:11 | NUR ---
PATIENT DC'D TO HOME IN THE COMPANY OF HER DAUGHTER. IV SALINE LOCK REMOVED WITHOUT INCIDENT. VERBALIZED UNDERSTANDING OF D/C INSTRUCTIONS AND MEDICATIONS. OFF UNIT VIA W/C AT 1423. NO BELONGINGS LEFT BEHIND IN ROOM.
== END 2020-08-16 14:26 | disposition home or self-care (01) ==
LOC: ER 13:03 → MEDS 13:04
PROVIDERS: Emergency Medicine; Internal Medicine; Pharmacist; ADMIT Family Medicine
DX: R40.4 Transient alteration of awareness (principal); R29.810 Facial weakness; R53.1 Weakness; R47.81 Slurred speech; E11.40 Type 2 diabetes mellitus with diabetic neuropathy, unspecified; I10 Essential (primary) hypertension; J44.9 Chronic obstructive pulmonary disease, unspecified; E78.1 Pure hyperglyceridemia; M54.9 Dorsalgia, unspecified; G25.81 Restless legs syndrome; D50.9 Iron deficiency anemia, unspecified; I48.0 Paroxysmal atrial fibrillation; K21.9 Gastro-esophageal reflux disease without esophagitis; R79.1 Abnormal coagulation profile; T45.515A Adverse effect of anticoagulants, initial encounter; R89.2 Abnormal level of other drugs, medicaments and biological substances in specimens from other organs, systems and tissues; F41.8 Other specified anxiety disorders; G89.4 Chronic pain syndrome; E11.65 Type 2 diabetes mellitus with hyperglycemia; E66.01 Morbid (severe) obesity due to excess calories; Z68.38 Body mass index [BMI] 38.0-38.9, adult; Z20.828 Contact with and (suspected) exposure to other viral communicable diseases; Z88.6 Allergy status to analgesic agent; Z88.8 Allergy status to other drugs, medicaments and biological substances; Z91.048 Other nonmedicinal substance allergy status; Z79.4 Long term (current) use of insulin; Z86.73 Personal history of transient ischemic attack (TIA), and cerebral infarction without residual deficits; Z79.899 Other long term (current) drug therapy; Z23 Encounter for immunization; Z79.01 Long term (current) use of anticoagulants; Z87.891 Personal history of nicotine dependence
CPT/HCPCS: 36415; 70450; 70496; 70498; 70551; 80048; 80053; 82947; 85025; 85027; 85610; 92610; 93005; 93010; 96374-59; 97162; 97165; 97530; 99285-25; A9270; A9270-GY; G0008; G0378; G0480; J1815; J2405; J7030; P9612; Q2038; Q9967

== ENCOUNTER 2020-09-12 16:01 | Emergency (ER) | payer OTHER ==
[~2020-09-12] VITALS: Ht 175.3 cm; Wt 120.2 kg
[~2020-09-12 16:01] MED LIST changes: -ATORVASTATIN CA80 M1 PO; -Coreg12.5 MG PO; +DOLOPHINE HCL PO; -NOVOLOG FL100 UNIT/1 SC; +NOVOLOG FL100 UNIT/3 SC; +VITAMIN D5000 UNIT PO
[2020-09-12 16:30] LABS: BASOPHILS ABSOLUTE AUTO 0.06 K/mm3 (0.00-0.23); BASOPHILS PERCENT AUTO 1 % (0-2); EOSINOPHILS ABSOLUTE AUTO 0.22 K/mm3 (0.00-0.68); EOSINOPHILS PERCENT AUTO 3 % (0-6); Hemoglobin 12.1 g/dL (11.5-16.0); IMMATURE GRAN ABSOLUTE AUTO 0.02 K/mm3 (0.00-0.10); IMMATURE GRAN PERCENT AUTO 0 % (0-1); LYMPHOCYTES PERCENT AUTO 36 % (21-46); MONOCYTES ABSOLUTE AUTO 0.72 K/mm3 (0.16-1.47); MONOCYTES PERCENT AUTO 9 % (4-13); Mean Corpuscular HGB 29.3 pg (26.0-34.0); Mean Corpuscular Volume 94 fL (80-100); Mean Platelet Volume 10.6 fL (9.1-12.4); NEUTROPHILS ABSOLUTE AUTO 3.89 K/mm3 (1.96-9.15); NEUTROPHILS PERCENT AUTO 50 % (41-73); Platelet Count 292 K/mm3 (150-400); RDW Coefficient Variation 14.2 % (11.7-14.2); RDW Standard Deviation 49.1 fL (35.1-46.3); Red Blood Cell Count 4.13 M/mm3 (3.80-5.20); White Blood Cell Count 7.71 K/mm3 (4.00-11.30)
[2020-09-12 16:53] LABS: Alanine Aminotransfer (ALT/SGP 31 U/L (12-78); Albumin, Blood 3.4 g/dL (3.4-5.0); Albumin/Globulin Ratio 0.9 (0.8-1.8); Alk Phos 110 U/L (50-136); Anion Gap 3 mmol/L (6-16); Aspartate Aminotrans (AST/SGOT 24 U/L (12-37); Bilirubin, Total 0.5 mg/dL (0.1-1.0); Blood Urea Nitrogen 10 mg/dL (8-24); Bun/Creatinine Ratio 15.1 (12.0-20.0); CO2, Blood 31 mmol/L (21-32); Calcium, Blood 8.7 mg/dL (8.5-10.1); Chloride, Blood 108 mmol/L (98-108); Creatinine, Blood 0.66 mg/dL (0.40-1.00); Globulin, Blood 3.6 g/dL (2.2-4.0); Glomerular Filtration Rate >60 (60-); Glucose, Blood 101 mg/dL (70-99); Potassium, Blood 4.1 mmol/L (3.5-5.5); Sodium, Blood 142 mmol/L (136-145); Troponin I <0.015 ng/mL (0.000-0.040)
[2020-09-12 20:16] LABS: International Normalized Ratio 2.25
[2020-09-12 22:15] LABS: Source, Urine Clean Catch
[2020-09-12 22:21] LABS: Bilirubin, Urine Neg (Neg); Blood, Urine 1+ (Neg); Glucose Qualitative, Urine Neg (Neg); Ketones, Urine Neg (Neg); Leukocyte Esterase, Urine 1+ (Neg); Nitrite, Urine Pos (Neg); Protein, Urine Neg (Neg); Urobilinogen, Urine NORM (Normal)
[2020-09-12 22:27] LABS: Appearance, Urine Clear (Clear); Color, Urine Yellow (P-Yellow)
[2020-09-12 22:36] LABS: U Amphetamine Screen Not Detected; U Barbituate Screen Not Detected; U Benzodiazapine Screen Not Detected; U Buprenorphine Screen Not Detected; U Cannabinoids Screen Not Detected; U Cocaine Screen Not Detected; U Methadone Screen DETECTED; U Methamphetamine Screen Not Detected; U Opiates Screen Not Detected; U Oxycodone Screen Not Detected; U Phencyclidine Screen Not Detected; U Propoxyphene Screen Not Detected
[2020-09-12 22:47] LABS: Bacteria Many /hpf; Red Blood Cells, Urine 0-2 /hpf (0-2); Squamous Epithelial Cells Mod /hpf (Few)
[2020-09-12] MEDS ORDERED: Keflex500 MG PO (23:08)
[2020-09-17] MEDS ORDERED: WARF5 PO (12:45)
[2020-09-17] MEDS ORDERED: OMEP20ER PO (12:46)
[2020-09-17] MEDS ORDERED: INSULIN AS100 UNIT/8 SC (12:50)
[2020-09-20] MEDS ORDERED: Prinivil10 MG PO (13:50)
== END 2020-09-13 00:48 | disposition home or self-care (01) ==
LOC: ER 16:01
PROVIDERS: Emergency Medicine; Physician Assistant
DX: N39.0 Urinary tract infection, site not specified (principal); G93.40 Encephalopathy, unspecified; E11.9 Type 2 diabetes mellitus without complications; I25.10 Atherosclerotic heart disease of native coronary artery without angina pectoris; J44.9 Chronic obstructive pulmonary disease, unspecified; I48.91 Unspecified atrial fibrillation; Z86.73 Personal history of transient ischemic attack (TIA), and cerebral infarction without residual deficits; Z87.891 Personal history of nicotine dependence; Z79.4 Long term (current) use of insulin; Z79.01 Long term (current) use of anticoagulants; Z79.899 Other long term (current) drug therapy; Z91.09 Other allergy status, other than to drugs and biological substances; Z88.6 Allergy status to analgesic agent
CPT/HCPCS: 36415; 70450; 71046; 80053; 81001; 82947; 83880; 84484; 85025; 85610; 87077; 87086; 87186; 93005; 93010; 99284-25; A9270

== ENCOUNTER 2020-09-17 10:05 | Inpatient (IN) | payer OTHER ==
[~2020-09-17] VITALS: Ht 175.3 cm; Wt 123.5 kg
[~2020-09-17 10:05] MED LIST changes: +Keflex500 MG PO
[2020-09-17 10:34] LABS: BASOPHILS ABSOLUTE AUTO 0.08 K/mm3 (0.00-0.23); BASOPHILS PERCENT AUTO 1 % (0-2); EOSINOPHILS ABSOLUTE AUTO 0.18 K/mm3 (0.00-0.68); EOSINOPHILS PERCENT AUTO 3 % (0-6); Hematocrit 41.1 % (33.0-51.0); Hemoglobin 12.7 g/dL (11.5-16.0); IMMATURE GRAN ABSOLUTE AUTO 0.01 K/mm3 (0.00-0.10); IMMATURE GRAN PERCENT AUTO 0 % (0-1); LYMPHOCYTES ABSOLUTE AUTO 2.66 K/mm3 (0.84-5.20); LYMPHOCYTES PERCENT AUTO 37 % (21-46); MONOCYTES ABSOLUTE AUTO 0.67 K/mm3 (0.16-1.47); MONOCYTES PERCENT AUTO 9 % (4-13); Mean Corpuscular HGB 28.6 pg (26.0-34.0); Mean Corpuscular HGB Conc 30.9 g/dL (31.5-36.5); Mean Corpuscular Volume 93 fL (80-100); Mean Platelet Volume 10.7 fL (9.1-12.4); NEUTROPHILS ABSOLUTE AUTO 3.51 K/mm3 (1.96-9.15); NEUTROPHILS PERCENT AUTO 50 % (41-73); Platelet Count 306 K/mm3 (150-400); RDW Standard Deviation 47.5 fL (35.1-46.3); Red Blood Cell Count 4.44 M/mm3 (3.80-5.20); White Blood Cell Count 7.11 K/mm3 (4.00-11.30)
[2020-09-17 10:50] LABS: International Normalized Ratio 3.28; Prothrombin Time Results 32.8 Sec (9.7-11.5)
[2020-09-17 10:53] LABS: Alanine Aminotransfer (ALT/SGP 21 U/L (12-78); Albumin, Blood 3.5 g/dL (3.4-5.0); Albumin/Globulin Ratio 0.9 (0.8-1.8); Alk Phos 97 U/L (50-136); Anion Gap 5 mmol/L (6-16); Aspartate Aminotrans (AST/SGOT 17 U/L (12-37); Bilirubin, Total 0.4 mg/dL (0.1-1.0); Blood Urea Nitrogen 15 mg/dL (8-24); Bun/Creatinine Ratio 20.7 (12.0-20.0); CO2, Blood 30 mmol/L (21-32); Chloride, Blood 109 mmol/L (98-108); Creatinine, Blood 0.72 mg/dL (0.40-1.00); Globulin, Blood 3.8 g/dL (2.2-4.0); Glomerular Filtration Rate >60 (60-); Glucose, Blood 70 mg/dL (70-99); Potassium, Blood 3.8 mmol/L (3.5-5.5); Sodium, Blood 144 mmol/L (136-145); Total Protein, Blood 7.3 g/dL (6.4-8.2)
[2020-09-17] MEDS ORDERED: WARF5 PO ×2 (12:45)
[2020-09-17] MEDS ORDERED: OMEP20ER PO ×2 (12:46)
[2020-09-17] MEDS ORDERED: INSULIN AS100 UNIT/8 SC ×2 (12:50)
--- NOTE | 2020-09-17 15:15 | NUR ---
NOTIFIED SUPERVISOR RESEARCH SHOP THAT THIS RN IS CONCERNED REGARDING RAPID HEART RATE IN THE 130'S AND HYPERTENSION 160-180/100-110. SUPERVISOR RESEARCH SHOP STATES PATIENT IS MEDICAL FLOOR APPROPRIATE.
--- NOTE | 2020-09-17 16:22 | NUR ---
HOSPITALIST CONTACTED FOR ORDERS VIA TELEPHONE TO TREAT TACHYCARDIA, AND HTN.
[2020-09-17 17:08] LABS: PCO2 Arterial 41.8 mmHg (35-45); PO2 Arterial 244 mmHg (80-100); pH Blood Arterial 7.42 (7.35-7.45)
--- NOTE | 2020-09-17 17:33 | NUR ---
CRYSTALIZER OPERATOR AND MD NOTIFIED THAT PATIENT HAS DEVELOPED SHORTNESS OF BREATH. RAPID RESPONSE CALLED AFTER PATIENT DEVELOPED SHORTNESS OF BREATH WITH AUDIBLE WHEEZING. SATURATIONS WNL. COMPOSITION ROOFER AT BEDSIDE, ROSE MARIE CASTILLO, AND ROSE MARIE PICHARDO. RACEMIC EPI, SOLUMEDROL, AND BENDRYL GIVEN, ALONG WITH BIPAP INTITATED, WITH IMPROVEMENT. PATIENT LESS TACHYPNEIC, HEART RATE DECREASED TO 110'S, AUDIBLE WHEEZING RESOLVED. REPORT CALLED TO OZZIE PCUROSE MARIE. HOSPITALIST AWARE. PATIENT TRANSFERRED TO PCU BY ROSE MARIE CASTILLO VIA BED. AT BEDSIDE.
[2020-09-17 17:53] LABS: Alanine Aminotransfer (ALT/SGP 19 U/L (12-78); Albumin, Blood 3.1 g/dL (3.4-5.0); Albumin/Globulin Ratio 0.9 (0.8-1.8); Alk Phos 86 U/L (50-136); Anion Gap 10 mmol/L (6-16); Aspartate Aminotrans (AST/SGOT 17 U/L (12-37); Bilirubin, Total 0.6 mg/dL (0.1-1.0); Blood Urea Nitrogen 11 mg/dL (8-24); Bun/Creatinine Ratio 20.5 (12.0-20.0); CO2, Blood 22 mmol/L (21-32); Calcium, Blood 7.8 mg/dL (8.5-10.1); Chloride, Blood 113 mmol/L (98-108); Creatinine, Blood 0.54 mg/dL (0.40-1.00); Globulin, Blood 3.3 g/dL (2.2-4.0); Glomerular Filtration Rate >60 (60-); Glucose, Blood 112 mg/dL (70-99); Potassium, Blood 3.2 mmol/L (3.5-5.5); Sodium, Blood 145 mmol/L (136-145); Total Protein, Blood 6.4 g/dL (6.4-8.2); Troponin I <0.015 ng/mL (0.000-0.040)
[2020-09-18 05:23] LABS: BASOPHILS ABSOLUTE AUTO 0.02 K/mm3 (0.00-0.23); BASOPHILS PERCENT AUTO 0 % (0-2); EOSINOPHILS PERCENT AUTO 0 % (0-6); Hematocrit 42.4 % (33.0-51.0); Hemoglobin 13.2 g/dL (11.5-16.0); IMMATURE GRAN ABSOLUTE AUTO 0.02 K/mm3 (0.00-0.10); IMMATURE GRAN PERCENT AUTO 0 % (0-1); LYMPHOCYTES ABSOLUTE AUTO 0.99 K/mm3 (0.84-5.20); LYMPHOCYTES PERCENT AUTO 13 % (21-46); MONOCYTES ABSOLUTE AUTO 0.04 K/mm3 (0.16-1.47); MONOCYTES PERCENT AUTO 1 % (4-13); Mean Corpuscular HGB 28.6 pg (26.0-34.0); Mean Corpuscular HGB Conc 31.1 g/dL (31.5-36.5); Mean Corpuscular Volume 92 fL (80-100); Mean Platelet Volume 10.9 fL (9.1-12.4); NEUTROPHILS ABSOLUTE AUTO 6.44 K/mm3 (1.96-9.15); NEUTROPHILS PERCENT AUTO 86 % (41-73); Platelet Count 315 K/mm3 (150-400); RDW Standard Deviation 47.2 fL (35.1-46.3); Red Blood Cell Count 4.61 M/mm3 (3.80-5.20); White Blood Cell Count 7.51 K/mm3 (4.00-11.30)
[2020-09-18 05:27] LABS: International Normalized Ratio 2.44; Prothrombin Time Results 24.8 Sec (9.7-11.5)
[2020-09-18 05:51] LABS: Anion Gap 10 mmol/L (6-16); Blood Urea Nitrogen 19 mg/dL (8-24); Bun/Creatinine Ratio 28.7 (12.0-20.0); CO2, Blood 24 mmol/L (21-32); Chloride, Blood 105 mmol/L (98-108); Creatinine, Blood 0.66 mg/dL (0.40-1.00); Glomerular Filtration Rate >60 (60-); Glucose, Blood 300 mg/dL (70-99); Potassium, Blood 4.4 mmol/L (3.5-5.5); Sodium, Blood 139 mmol/L (136-145)
--- NOTE | 2020-09-18 06:41 | NUR ---
SHIFT SUMMARY PT A&O X4; VSS; AT START OF SHIFT PT HAD 5 SECOND PAUSE AND CONVERTED TO NSR W/ HR 80-90'S; PT ASSYMPTOMATIC; O2 SATS >93 ON BIPAP / FIO2 30% REMAINED IN PLACE T/O SHIFT; RT AT BEDSIDE TO ASSESS AND ADJUST; NOTIFIED OF BLOOD SUGAR OF 279; D5 1/2 NS INFUSING; GLUCOSE @ 0600 OF 284; CALL LIGHT IN REACH; BED IN LOWEST POSITION; WILL CONTINUE TO MONITOR CLOSELY UNTIL HAND OFF TO DAY SHIFT RN.
--- NOTE | 2020-09-18 19:42 | NUR ---
SHIFT SUMMARY: PT A&OX4 T/OUT SHIFT, NO FACIAL DROOP, SPEECH CONTINUES CLEAR. PT TRANSITIONED FROM BIPAP TO ROOM AIR, CONTINUES TO TOLERATE WELL WITH SATS >90%. NSR ON MONITOR. PT TO AND FROM MRI TODAY, DR ARAUZ CONSULTED FOR RESULTS, ARRIVES TO ROOM AT SHIFT CHANGE TO DISCUSS PLAN OF CARE. PT EVALUATED BY SPEECH THERAPY, PT/OT TODAY. PT TO HAVE PILLS IN APPLESAUCE, MECH SOFT DIET. PT HAS BEEN COOPERATIVE CARE AND HAS BEEN UPDATED ON PLAN OF CARE T/OUT DAY. REPORT TO ROSE MARIE TIMMONS.
--- NOTE | 2020-09-19 00:51 | NUR ---
PHYSICIAN COMMUNICATION DR HERNANDEZ CALLED AROUND 2330. INFORMED THIS NURSE HE CHANGED PT TO HSS FOR INSULIN & ADDED 20U SEMGLEE TO START NOW. INFORMED HIM PT ASKING FOR MELATONIN, HE ORDERED 5MG MELATONIN PRN @HS. WILL MONITOR PT.
--- NOTE | 2020-09-19 05:12 | NUR ---
SHIFT SUMMARY NO ACUTE CHANGES THIS SHIFT. AOX4, ANSWER ORIENTATION QUESTIONS APPROPRIATELY & FOLLOWS SIMPLE DIRECTIONS. VSS. TELE NSR @92. PT DENIES PAIN, N/V OR DYSPNEA. WORE CPAP MOST OF NIGHT, PT EVENTUALLY STATED IT WAS BOTHERING HER & TOOK OFF. REPORTS N/T TO L SIDE OF BODY, INCLUDING L ARM & L SIDE OF FACE. HAS EQUAL TONGUE PRESSER & PEDAL PUSHES. NO FACIAL DROOP OR SLURRED SPEECH. CBG @HS WAS 326, GAVE 9U HUMALOG PER ORDERS & DR HERNANDEZ ORDERED 20U SEMGLEE ADDITIONAL. HAS STIFF GAIT, USES CANE-SBY ASSIST. CALL LIGHT IN REACH & PT ABLE TO MAKE NEEDS KNOWN.
[2020-09-19 07:19] LABS: International Normalized Ratio 2.74; Prothrombin Time Results 27.7 Sec (9.7-11.5)
[2020-09-19 07:23] LABS: CHOL/HDL RATIO 4.4; Cholesterol 214 mg/dL (50-200); HDL Cholesterol 49 mg/dL (>39); Low Density Lipoprotein Chol 147 mg/dL (0-110); Triglycerides 89 mg/dL (30-160); Very Low Density Lipoprot Chol 17 mg/dL (6-32)
--- NOTE | 2020-09-19 12:14 | NUR ---
Patient is much more calm today. She does not mention anything about conspiracies, nurses intent on killing her or seeing demons and angels. Patient is pleasant and easy to talk to. 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 I listen empathically and provide prayer. Patient responds well and shows signs of an elevated mood. I will continue to remain available to patient and family.
--- NOTE | 2020-09-19 14:37 | NUR ---
09/19/20- PER REVIEW WITH DR. HERNANDEZ, PT WILL BE D/C TOMORROW. HE HAS ASKED THAT THE PATIENT STAY ANOTHER NIGHT BECAUSE HER BLOOD PRESSURE IS RAISED AND HE CAN'T TREAT IT FOR 72HRS POST CVA. HE IS ALSO WORKING ON GETTING HER DM MEDICATIONS BETTER CONTROLLED. WENT AND SPOKE WITH PT ABOUT PLAN FOR SAFE D/C. PT REALLY WOULD LIKE TO GO HOME TODAY BUT UNDERSTANDS REASON FOR ONE MORE NIGHT. REVIEWED ALEX LETTER WITH PT.-[email or web address]
--- NOTE | 2020-09-19 16:05 | NUR ---
PT STATUS CHANGED TO MEDICAL WITH NO TELE. PT TRANSFERRED TO 327 REPORT GIVEN TO HENRIETTA TROTTER. NO ACUTE CHANGE REPORTED FOR THE SHIFT, VITALS HAS BEEN STABLE. PT TO DISCHARGE IN AM IF STABLE. NO FACIAL DROOP OR SLURRED SPEECH NOTED, PT IS MORE AT BASELINE PER PT, BUT STILL HAS MILD TINGLING AND NUMBNESS ON LEFT SIDE. PT/OT WAS ABLE TO WORK WITH PT TODAY, NO ISSUES REPORTED. ALL BELONGINGS SENT WITH PT, PT ACCOMPANIED BY PCT VIA WHEELCHAIR.
--- NOTE | 2020-09-19 16:26 | NUR ---
Clarifying Orders Patient had two orders of Semglee, one for 20u and 40u. Also, patient IV solumedrol causing increasing SOB. Unsure what patient is taking IV solumedrol for as patient currently does not have exacerbation of COPD, not in any respiratory distress, E/U breathing on RA. Discussed with Dr. Herrera, received T.O. to d/c Solumedrol and 20u Semglee. Orders updated.
--- NOTE | 2020-09-19 16:29 | NUR ---
Patient concern Discussed with Dr. Herrera patient concern of not taking prescribed Keflex for UTI-sepsis 500 mg qid since being admitted. Received T.O. for clean catch urinalysis culture if indicated.
--- NOTE | 2020-09-19 17:12 | NUR ---
Blood Glucose [address] Herrera RE blood sugar of 400. T.O. to give 18 units of humalog per EMAR SS. No new order.
[2020-09-19 17:58] LABS: Source, Urine Clean Catch
--- NOTE | 2020-09-19 18:10 | NUR ---
Shift Summary Received report from Lalitha PCU-RN. Patient arrived to unit via w/c @ 1600. On RA, CPAP at bedside. Neuro assessment done, clear speech and no facial droop. C/O paresthesia to L side. Independent with cane. Calls appropriately for needs. No tele, RA. Denies pain, nausea, vomiting. Afebrile, VSS. at bedside throughout the day. A/Ox4. Will cont. to monitor until shift change.
[2020-09-19 18:15] LABS: Appearance, Urine Clear (Clear); Bilirubin, Urine Neg (Neg); Blood, Urine Neg (Neg); Color, Urine Yellow (P-Yellow); Glucose Qualitative, Urine 4+ (Neg); Ketones, Urine Neg (Neg); Leukocyte Esterase, Urine Neg (Neg); Nitrite, Urine Neg (Neg); Protein, Urine Neg (Neg); Urobilinogen, Urine NORM (Normal)
--- NOTE | 2020-09-19 19:28 | NUR ---
AWAKE. WATCHING TV. STATED LEFT SIDE NUMBNESS. AGREES TO USE CALL LIGHT PRIOR TO ATTEMPS TO GET OUT OF BED. CALL LIGHT IN REACH
--- NOTE | 2020-09-20 04:38 | NUR ---
SHIFT SUMMARY LEFT SIDE REMAINS WEAKER THAN RIGHT WITH DECREASED FEELING WELL. UP AND ABOUT ROOM WITH USE OF CANE WITHOUT NOTED DIFFICULTIES TO AMBULATE. HAS BEEN RESTING QUIETLY WITH FEW INTERRUPTIONS SINCE HS. CALL LIGHT IN REACH
[2020-09-20 05:34] LABS: International Normalized Ratio 3.07; Prothrombin Time Results 30.8 Sec (9.7-11.5)
[2020-09-20] MEDS ORDERED: Prinivil10 MG PO ×2 (13:50)
--- NOTE | 2020-09-20 14:03 | NUR ---
DISCHARGE INSTRUCTIONS GIVEN TO THE PATIENT. ALL QUESTIONS ANSWERED. IV REMOVED. PATIENT IS READY, DRESSED IN ROOM. WAITING FOR DAUGHTER TO COME PICK HER UP FOR DISCHARGE HOME.
--- NOTE | 2020-09-20 14:42 | NUR ---
patient discharged home at 1438. CONTINUOUS IMPROVEMENT ENGINEER escorted patient out in wheelchair.
--- NOTE | 2020-09-20 15:41 | NUR ---
ADMIT: 09/17/20 DISCHARGE: DX: CVA, weakness CC: ADMIT: 08/14/20 DISCHARGE: 08/16/20 DX: ACUTE CVA SUMMARY: 09/20/20 Discharge home today, has a ride home, care coordination and chico discussed with her yesterday. Met with floor nurse, discussed discharge, did not identify any additional needs. Luz Marina was sleeping at the time of my visit. Elyria will call home or Friday to complete chico and schedule follow up appointment.
== END 2020-09-20 14:39 | disposition home or self-care (01) | DRG 64 ==
LOC: ER 10:05 → MEDS 12:46 → PCU 12:46 → MEDS 15:29 → PCU 17:30 → MEDS 09-19 16:01
PROVIDERS: Emergency Medicine; Internal Medicine; Psychiatry & Neurology Neurology; ADMIT Internal Medicine
DX: I63.81 Other cerebral infarction due to occlusion or stenosis of small artery (principal); J96.01 Acute respiratory failure with hypoxia; G81.94 Hemiplegia, unspecified affecting left nondominant side; I69.354 Hemiplegia and hemiparesis following cerebral infarction affecting left non-dominant side; R20.2 Paresthesia of skin; I48.91 Unspecified atrial fibrillation; J44.9 Chronic obstructive pulmonary disease, unspecified; K21.9 Gastro-esophageal reflux disease without esophagitis; E78.5 Hyperlipidemia, unspecified; I10 Essential (primary) hypertension; E10.8 Type 1 diabetes mellitus with unspecified complications; E08.649 Diabetes mellitus due to underlying condition with hypoglycemia without coma; E11.42 Type 2 diabetes mellitus with diabetic polyneuropathy; Z87.891 Personal history of nicotine dependence; E66.01 Morbid (severe) obesity due to excess calories; Z68.39 Body mass index [BMI] 39.0-39.9, adult; Z79.01 Long term (current) use of anticoagulants
CPT/HCPCS: 36415; 36600; 70450; 70496; 70498; 70551; 71045; 80048; 80053; 80061; 81003; 82803; 82947; 84484; 85025; 85610; 92526; 92610; 94640; 94660; 94762; 96374; 97112; 97116; 97162; 97166; 97530; 99285-25; A9270; J0360; J1200; J2920; J2930; J7042; Q9967

== ENCOUNTER 2020-10-06 18:46 | Emergency (ER) | payer OTHER ==
[~2020-10-06] VITALS: Ht 175.3 cm; Wt 121.1 kg
[~2020-10-06 18:46] MED LIST changes: +INSULIN AS100 UNIT/8 SC; +OMEP20ER PO; +Prinivil10 MG PO
[2020-10-06 19:16] LABS: BASOPHILS ABSOLUTE AUTO 0.05 K/mm3 (0.00-0.23); BASOPHILS PERCENT AUTO 1 % (0-2); EOSINOPHILS ABSOLUTE AUTO 0.19 K/mm3 (0.00-0.68); EOSINOPHILS PERCENT AUTO 2 % (0-6); Hematocrit 39.7 % (33.0-51.0); Hemoglobin 12.5 g/dL (11.5-16.0); IMMATURE GRAN ABSOLUTE AUTO 0.02 K/mm3 (0.00-0.10); IMMATURE GRAN PERCENT AUTO 0 % (0-1); LYMPHOCYTES ABSOLUTE AUTO 2.54 K/mm3 (0.84-5.20); LYMPHOCYTES PERCENT AUTO 27 % (21-46); MONOCYTES ABSOLUTE AUTO 0.71 K/mm3 (0.16-1.47); MONOCYTES PERCENT AUTO 8 % (4-13); Mean Corpuscular HGB 28.8 pg (26.0-34.0); Mean Corpuscular HGB Conc 31.5 g/dL (31.5-36.5); Mean Corpuscular Volume 92 fL (80-100); Mean Platelet Volume 10.7 fL (9.1-12.4); NEUTROPHILS ABSOLUTE AUTO 5.99 K/mm3 (1.96-9.15); NEUTROPHILS PERCENT AUTO 63 % (41-73); Platelet Count 270 K/mm3 (150-400); RDW Coefficient Variation 14.1 % (11.7-14.2); RDW Standard Deviation 47.9 fL (35.1-46.3); Red Blood Cell Count 4.34 M/mm3 (3.80-5.20)
[2020-10-06 19:39] LABS: Alanine Aminotransfer (ALT/SGP 27 U/L (12-78); Albumin, Blood 3.5 g/dL (3.4-5.0); Albumin/Globulin Ratio 0.9 (0.8-1.8); Alk Phos 107 U/L (50-136); Anion Gap 3 mmol/L (6-16); Aspartate Aminotrans (AST/SGOT 16 U/L (12-37); Bilirubin, Total 0.4 mg/dL (0.1-1.0); Blood Urea Nitrogen 16 mg/dL (8-24); Bun/Creatinine Ratio 23.8 (12.0-20.0); CO2, Blood 28 mmol/L (21-32); Calcium, Blood 8.7 mg/dL (8.5-10.1); Chloride, Blood 111 mmol/L (98-108); Creatinine, Blood 0.67 mg/dL (0.40-1.00); Globulin, Blood 3.7 g/dL (2.2-4.0); Glomerular Filtration Rate >60 (60-); Glucose, Blood 144 mg/dL (70-99); Potassium, Blood 4.2 mmol/L (3.5-5.5); Sodium, Blood 142 mmol/L (136-145); Total Protein, Blood 7.2 g/dL (6.4-8.2)
[2020-10-06 20:17] LABS: Source, Urine Clean Catch
[2020-10-06 20:19] LABS: Bilirubin, Urine Neg (Neg); Blood, Urine Neg (Neg); Glucose Qualitative, Urine Neg (Neg); Ketones, Urine Neg (Neg); Leukocyte Esterase, Urine Neg (Neg); Nitrite, Urine Neg (Neg); Protein, Urine 1+ (Neg); Specific Gravity, Urine 1.015 (1.003-1.022); Urobilinogen, Urine NORM (Normal)
[2020-10-06 20:34] LABS: Appearance, Urine Clear (Clear); Color, Urine Pale Yellow (P-Yellow)
[2020-10-06] MEDS ORDERED: Reglan10 MG PO (22:37)
== END 2020-10-06 22:55 | disposition home or self-care (01) ==
LOC: ER 18:46
PROVIDERS: Physician Assistant
DX: R10.9 Unspecified abdominal pain (principal); I48.91 Unspecified atrial fibrillation; K21.9 Gastro-esophageal reflux disease without esophagitis; E78.5 Hyperlipidemia, unspecified; I10 Essential (primary) hypertension; E11.42 Type 2 diabetes mellitus with diabetic polyneuropathy; Z79.4 Long term (current) use of insulin; Z79.01 Long term (current) use of anticoagulants; Z91.09 Other allergy status, other than to drugs and biological substances; Z88.6 Allergy status to analgesic agent; Z88.5 Allergy status to narcotic agent; Z79.899 Other long term (current) drug therapy; Z86.73 Personal history of transient ischemic attack (TIA), and cerebral infarction without residual deficits; Z87.891 Personal history of nicotine dependence
CPT/HCPCS: 74177; 80053; 83605; 83690; 85025; 96374; 99284-25; J2765; Q9967

== ENCOUNTER 2020-11-06 12:18 | Emergency (ER) | payer OTHER ==
[~2020-11-06] VITALS: Ht 172.7 cm; Wt 117.9 kg
[~2020-11-06 12:18] MED LIST changes: +Reglan10 MG PO
[2020-11-06 12:51] LABS: BASOPHILS ABSOLUTE AUTO 0.08 K/mm3 (0.00-0.23); BASOPHILS PERCENT AUTO 1 % (0-2); EOSINOPHILS ABSOLUTE AUTO 0.08 K/mm3 (0.00-0.68); EOSINOPHILS PERCENT AUTO 1 % (0-6); Hematocrit 44.3 % (33.0-51.0); Hemoglobin 14.6 g/dL (11.5-16.0); IMMATURE GRAN ABSOLUTE AUTO 0.06 K/mm3 (0.00-0.10); IMMATURE GRAN PERCENT AUTO 1 % (0-1); LYMPHOCYTES ABSOLUTE AUTO 2.35 K/mm3 (0.84-5.20); LYMPHOCYTES PERCENT AUTO 20 % (21-46); MONOCYTES ABSOLUTE AUTO 0.72 K/mm3 (0.16-1.47); MONOCYTES PERCENT AUTO 6 % (4-13); Mean Corpuscular HGB 29.5 pg (26.0-34.0); Mean Corpuscular Volume 90 fL (80-100); NEUTROPHILS ABSOLUTE AUTO 8.48 K/mm3 (1.96-9.15); NEUTROPHILS PERCENT AUTO 72 % (41-73); Platelet Count 273 K/mm3 (150-400); RDW Coefficient Variation 14.5 % (11.7-14.2); RDW Standard Deviation 46.7 fL (35.1-46.3); Red Blood Cell Count 4.95 M/mm3 (3.80-5.20); White Blood Cell Count 11.77 K/mm3 (4.00-11.30)
[2020-11-06 13:13] LABS: Alanine Aminotransfer (ALT/SGP 24 U/L (12-78); Albumin, Blood 3.5 g/dL (3.4-5.0); Albumin/Globulin Ratio 0.9 (0.8-1.8); Alk Phos 117 U/L (50-136); Anion Gap 7 mmol/L (6-16); Aspartate Aminotrans (AST/SGOT 14 U/L (12-37); Bilirubin, Total 0.5 mg/dL (0.1-1.0); Blood Urea Nitrogen 18 mg/dL (8-24); Bun/Creatinine Ratio 24.1 (12.0-20.0); CO2, Blood 25 mmol/L (21-32); Calcium, Blood 9.2 mg/dL (8.5-10.1); Chloride, Blood 107 mmol/L (98-108); Creatinine, Blood 0.75 mg/dL (0.40-1.00); Globulin, Blood 3.8 g/dL (2.2-4.0); Glomerular Filtration Rate >60 (60-); Glucose, Blood 254 mg/dL (70-99); Potassium, Blood 4.3 mmol/L (3.5-5.5); Sodium, Blood 139 mmol/L (136-145); Total Protein, Blood 7.3 g/dL (6.4-8.2); Troponin I <0.015 ng/mL (0.000-0.040)
[2020-11-06 14:39] LABS: International Normalized Ratio 3.1; Prothrombin Time Results 31.1 Sec (9.7-11.5)
== END 2020-11-06 16:27 | disposition home or self-care (01) ==
LOC: ER 12:18
PROVIDERS: Emergency Medicine; Physician Assistant
DX: I48.91 Unspecified atrial fibrillation (principal); J44.9 Chronic obstructive pulmonary disease, unspecified; E11.42 Type 2 diabetes mellitus with diabetic polyneuropathy; I10 Essential (primary) hypertension; Z79.4 Long term (current) use of insulin; Z79.01 Long term (current) use of anticoagulants; Z79.899 Other long term (current) drug therapy; Z86.73 Personal history of transient ischemic attack (TIA), and cerebral infarction without residual deficits
CPT/HCPCS: 80053; 84484; 85025; 85610; 93005; 93010; 96374; 96376; 99285-25

== ENCOUNTER 2021-01-21 17:56 | Emergency (ER) | payer OTHER ==
[~2021-01-21] VITALS: Ht 175.3 cm; Wt 122.5 kg
[2021-01-21 18:56] LABS: BASOPHILS ABSOLUTE AUTO 0.08 K/mm3 (0.00-0.23); BASOPHILS PERCENT AUTO 1 % (0-2); EOSINOPHILS ABSOLUTE AUTO 0.26 K/mm3 (0.00-0.68); EOSINOPHILS PERCENT AUTO 3 % (0-6); Hematocrit 36.9 % (33.0-51.0); Hemoglobin 11.9 g/dL (11.5-16.0); IMMATURE GRAN ABSOLUTE AUTO 0.04 K/mm3 (0.00-0.10); IMMATURE GRAN PERCENT AUTO 0 % (0-1); LYMPHOCYTES PERCENT AUTO 25 % (21-46); MONOCYTES ABSOLUTE AUTO 0.65 K/mm3 (0.16-1.47); MONOCYTES PERCENT AUTO 7 % (4-13); Mean Corpuscular HGB 29.5 pg (26.0-34.0); Mean Corpuscular HGB Conc 32.2 g/dL (31.5-36.5); Mean Corpuscular Volume 92 fL (80-100); Mean Platelet Volume 10.9 fL (9.1-12.4); NEUTROPHILS ABSOLUTE AUTO 6.28 K/mm3 (1.96-9.15); NEUTROPHILS PERCENT AUTO 65 % (41-73); Platelet Count 310 K/mm3 (150-400); RDW Coefficient Variation 14.7 % (11.7-14.2); Red Blood Cell Count 4.03 M/mm3 (3.80-5.20); White Blood Cell Count 9.71 K/mm3 (4.00-11.30)
[2021-01-21 18:57] LABS: Alanine Aminotransfer (ALT/SGP 22 U/L (12-78); Albumin, Blood 3.6 g/dL (3.4-5.0); Albumin/Globulin Ratio 0.9 (0.8-1.8); Alk Phos 110 U/L (50-136); Anion Gap 3 mmol/L (6-16); Aspartate Aminotrans (AST/SGOT 8 U/L (12-37); Bilirubin, Total 0.4 mg/dL (0.1-1.0); Blood Urea Nitrogen 13 mg/dL (8-24); Bun/Creatinine Ratio 19.6 (12.0-20.0); CO2, Blood 26 mmol/L (21-32); Chloride, Blood 109 mmol/L (98-108); Creatinine, Blood 0.66 mg/dL (0.40-1.00); Globulin, Blood 3.8 g/dL (2.2-4.0); Glomerular Filtration Rate >60 (60-); Glucose, Blood 350 mg/dL (70-99); Potassium, Blood 4.1 mmol/L (3.5-5.5); Sodium, Blood 138 mmol/L (136-145); Total Protein, Blood 7.4 g/dL (6.4-8.2)
[2021-01-21] MEDS ORDERED: ATOR20 PO (19:02)
[2021-01-21] MEDS ORDERED: ROSU10TA PO (19:04)
[2021-01-21 21:47] LABS: Source, Urine Clean Catch
[2021-01-21 21:49] LABS: Appearance, Urine Clear (Clear); Bilirubin, Urine Neg (Neg); Blood, Urine 1+ (Neg); Color, Urine Yellow (P-Yellow); Glucose Qualitative, Urine 4+ (Neg); Ketones, Urine Neg (Neg); Leukocyte Esterase, Urine 1+ (Neg); Nitrite, Urine Neg (Neg); Protein, Urine 2+ (Neg); Urobilinogen, Urine NORM (Normal)
[2021-01-21 21:58] LABS: Bacteria Many /hpf; Red Blood Cells, Urine 0-2 /hpf (0-2); Squamous Epithelial Cells Few /hpf (Few); White Blood Cells, Urine 25-50 /hpf (0-5)
[2021-01-21] MEDS ORDERED: Bactrim Ds Tab1 EACH PO (22:04)
== END 2021-01-21 22:25 | disposition home or self-care (01) ==
LOC: ER 17:56
PROVIDERS: Physician Assistant
DX: N39.0 Urinary tract infection, site not specified (principal); K59.00 Constipation, unspecified; Z79.01 Long term (current) use of anticoagulants; Z79.899 Other long term (current) drug therapy; Z79.4 Long term (current) use of insulin
CPT/HCPCS: 36415; 74176; 80053; 81001; 83690; 84484; 85025; 87077; 87086; 87186; 93005; 93010; 96374; 96375; 99284-25; A9270; J1170; J2405

== ENCOUNTER 2021-02-12 11:06 | Emergency (ER) | payer OTHER ==
[~2021-02-12] VITALS: Ht 167.6 cm; Wt 117.9 kg
[~2021-02-12 11:06] MED LIST changes: +ATOR20 PO; +ROSU10TA PO
[2021-02-12 11:44] LABS: BASOPHILS PERCENT AUTO 1 % (0-2); EOSINOPHILS ABSOLUTE AUTO 0.58 K/mm3 (0.00-0.68); EOSINOPHILS PERCENT AUTO 6 % (0-6); Hemoglobin 11.3 g/dL (11.5-16.0); IMMATURE GRAN ABSOLUTE AUTO 0.04 K/mm3 (0.00-0.10); IMMATURE GRAN PERCENT AUTO 0 % (0-1); LYMPHOCYTES PERCENT AUTO 23 % (21-46); MONOCYTES ABSOLUTE AUTO 0.79 K/mm3 (0.16-1.47); MONOCYTES PERCENT AUTO 8 % (4-13); Mean Corpuscular HGB 29.6 pg (26.0-34.0); Mean Corpuscular HGB Conc 31.4 g/dL (31.5-36.5); Mean Corpuscular Volume 94 fL (80-100); Mean Platelet Volume 10.7 fL (9.1-12.4); NEUTROPHILS ABSOLUTE AUTO 6.46 K/mm3 (1.96-9.15); NEUTROPHILS PERCENT AUTO 62 % (41-73); Platelet Count 284 K/mm3 (150-400); RDW Coefficient Variation 15.1 % (11.7-14.2); RDW Standard Deviation 52.5 fL (35.1-46.3); Red Blood Cell Count 3.82 M/mm3 (3.80-5.20); White Blood Cell Count 10.37 K/mm3 (4.00-11.30)
[2021-02-12 12:11] LABS: Alanine Aminotransfer (ALT/SGP 21 U/L (12-78); Albumin, Blood 3.2 g/dL (3.4-5.0); Albumin/Globulin Ratio 0.9 (0.8-1.8); Alk Phos 123 U/L (50-136); Anion Gap 3 mmol/L (6-16); Aspartate Aminotrans (AST/SGOT 11 U/L (12-37); Bilirubin, Total 0.4 mg/dL (0.1-1.0); Blood Urea Nitrogen 30 mg/dL (8-24); Bun/Creatinine Ratio 33.7 (12.0-20.0); CO2, Blood 28 mmol/L (21-32); Calcium, Blood 8.5 mg/dL (8.5-10.1); Chloride, Blood 111 mmol/L (98-108); Creatinine, Blood 0.89 mg/dL (0.40-1.00); Globulin, Blood 3.4 g/dL (2.2-4.0); Glomerular Filtration Rate >60 (60-); Glucose, Blood 54 mg/dL (70-99); Potassium, Blood 4.2 mmol/L (3.5-5.5); Sodium, Blood 142 mmol/L (136-145); Total Protein, Blood 6.6 g/dL (6.4-8.2); Troponin I <0.015 ng/mL (0.000-0.040)
[2021-02-12 12:34] LABS: International Normalized Ratio 3.53; Prothrombin Time Results 35.5 Sec (9.7-11.5)
== END 2021-02-12 13:45 | disposition home or self-care (01) ==
LOC: ER 11:06
PROVIDERS: Emergency Medicine
DX: I48.91 Unspecified atrial fibrillation (principal); E11.42 Type 2 diabetes mellitus with diabetic polyneuropathy; J44.9 Chronic obstructive pulmonary disease, unspecified; E78.5 Hyperlipidemia, unspecified; I10 Essential (primary) hypertension; F17.200 Nicotine dependence, unspecified, uncomplicated; Z86.73 Personal history of transient ischemic attack (TIA), and cerebral infarction without residual deficits; Z79.4 Long term (current) use of insulin; Z79.01 Long term (current) use of anticoagulants; Z79.899 Other long term (current) drug therapy; Z91.09 Other allergy status, other than to drugs and biological substances; Z88.6 Allergy status to analgesic agent; Z88.5 Allergy status to narcotic agent; Z91.041 Radiographic dye allergy status
CPT/HCPCS: 36415; 73630; 80053; 84484; 85025; 85610; 93005; 93010; 99285-25

== ENCOUNTER 2021-02-19 03:21 | Emergency (ER) | payer OTHER ==
[~2021-02-19] VITALS: Ht 175.3 cm; Wt 125.6 kg
[2021-02-19 03:45] LABS: BASOPHILS ABSOLUTE AUTO 0.09 K/mm3 (0.00-0.23); BASOPHILS PERCENT AUTO 1 % (0-2); EOSINOPHILS ABSOLUTE AUTO 0.64 K/mm3 (0.00-0.68); EOSINOPHILS PERCENT AUTO 6 % (0-6); Hematocrit 33.5 % (33.0-51.0); Hemoglobin 10.7 g/dL (11.5-16.0); IMMATURE GRAN ABSOLUTE AUTO 0.04 K/mm3 (0.00-0.10); IMMATURE GRAN PERCENT AUTO 0 % (0-1); LYMPHOCYTES ABSOLUTE AUTO 2.41 K/mm3 (0.84-5.20); LYMPHOCYTES PERCENT AUTO 24 % (21-46); MONOCYTES ABSOLUTE AUTO 0.71 K/mm3 (0.16-1.47); MONOCYTES PERCENT AUTO 7 % (4-13); Mean Corpuscular HGB Conc 31.9 g/dL (31.5-36.5); Mean Corpuscular Volume 94 fL (80-100); Mean Platelet Volume 10.6 fL (9.1-12.4); NEUTROPHILS ABSOLUTE AUTO 6.11 K/mm3 (1.96-9.15); NEUTROPHILS PERCENT AUTO 61 % (41-73); Platelet Count 290 K/mm3 (150-400); RDW Coefficient Variation 15.2 % (11.7-14.2); RDW Standard Deviation 51.9 fL (35.1-46.3); Red Blood Cell Count 3.57 M/mm3 (3.80-5.20)
[2021-02-19 04:14] LABS: Alanine Aminotransfer (ALT/SGP 20 U/L (12-78); Albumin, Blood 3.4 g/dL (3.4-5.0); Alk Phos 114 U/L (50-136); Anion Gap 4 mmol/L (6-16); Aspartate Aminotrans (AST/SGOT 11 U/L (12-37); Bilirubin, Total 0.5 mg/dL (0.1-1.0); Blood Urea Nitrogen 25 mg/dL (8-24); Bun/Creatinine Ratio 29.7 (12.0-20.0); CO2, Blood 29 mmol/L (21-32); Calcium, Blood 8.8 mg/dL (8.5-10.1); Chloride, Blood 112 mmol/L (98-108); Creatinine, Blood 0.84 mg/dL (0.40-1.00); Ethanol (Alcohol), Blood, Med <3 mg/dL; Globulin, Blood 3.5 g/dL (2.2-4.0); Glomerular Filtration Rate >60 (60-); Glucose, Blood 59 mg/dL (70-99); Potassium, Blood 3.6 mmol/L (3.5-5.5); Sodium, Blood 145 mmol/L (136-145); Total Protein, Blood 6.9 g/dL (6.4-8.2)
== END 2021-02-19 06:30 | disposition home or self-care (01) ==
LOC: ER 03:21
PROVIDERS: Student in an Organized Health Care Education/Training Program
DX: R55 Syncope and collapse (principal); F17.200 Nicotine dependence, unspecified, uncomplicated; E11.9 Type 2 diabetes mellitus without complications; Z79.84 Long term (current) use of oral hypoglycemic drugs; E78.5 Hyperlipidemia, unspecified; J44.9 Chronic obstructive pulmonary disease, unspecified; Z79.899 Other long term (current) drug therapy; Z88.2 Allergy status to sulfonamides; I10 Essential (primary) hypertension; Z91.048 Other nonmedicinal substance allergy status; Z91.040 Latex allergy status; Z88.6 Allergy status to analgesic agent
CPT/HCPCS: 80053; 82947; 85025; 93005; 93010; 99284-25; G0480

== ENCOUNTER 2021-02-25 15:35 | Observation (INO) | payer OTHER ==
[~2021-02-25] VITALS: Ht 175.3 cm; Wt 121.7 kg
[2021-02-25 16:20] LABS: BASOPHILS ABSOLUTE AUTO 0.07 K/mm3 (0.00-0.23); BASOPHILS PERCENT AUTO 1 % (0-2); EOSINOPHILS ABSOLUTE AUTO 0.59 K/mm3 (0.00-0.68); EOSINOPHILS PERCENT AUTO 6 % (0-6); Hematocrit 36.6 % (33.0-51.0); Hemoglobin 11.6 g/dL (11.5-16.0); IMMATURE GRAN ABSOLUTE AUTO 0.03 K/mm3 (0.00-0.10); IMMATURE GRAN PERCENT AUTO 0 % (0-1); LYMPHOCYTES ABSOLUTE AUTO 2.45 K/mm3 (0.84-5.20); LYMPHOCYTES PERCENT AUTO 23 % (21-46); MONOCYTES PERCENT AUTO 7 % (4-13); Mean Corpuscular HGB 29.9 pg (26.0-34.0); Mean Corpuscular HGB Conc 31.7 g/dL (31.5-36.5); Mean Corpuscular Volume 94 fL (80-100); Mean Platelet Volume 10.9 fL (9.1-12.4); NEUTROPHILS ABSOLUTE AUTO 6.82 K/mm3 (1.96-9.15); NEUTROPHILS PERCENT AUTO 63 % (41-73); Platelet Count 266 K/mm3 (150-400); RDW Coefficient Variation 15.5 % (11.7-14.2); RDW Standard Deviation 53.3 fL (35.1-46.3); Red Blood Cell Count 3.88 M/mm3 (3.80-5.20); White Blood Cell Count 10.76 K/mm3 (4.00-11.30)
[2021-02-25 16:41] LABS: Alanine Aminotransfer (ALT/SGP 21 U/L (12-78); Albumin, Blood 3.3 g/dL (3.4-5.0); Albumin/Globulin Ratio 0.9 (0.8-1.8); Alk Phos 109 U/L (50-136); Anion Gap 2 mmol/L (6-16); Aspartate Aminotrans (AST/SGOT 14 U/L (12-37); Bilirubin, Total 0.5 mg/dL (0.1-1.0); Blood Urea Nitrogen 19 mg/dL (8-24); Bun/Creatinine Ratio 20.1 (12.0-20.0); CO2, Blood 28 mmol/L (21-32); Calcium, Blood 8.7 mg/dL (8.5-10.1); Chloride, Blood 111 mmol/L (98-108); Creatinine, Blood 0.94 mg/dL (0.40-1.00); Ethanol (Alcohol), Blood, Med <3 mg/dL; Globulin, Blood 3.8 g/dL (2.2-4.0); Glomerular Filtration Rate >60 (60-); Glucose, Blood 94 mg/dL (70-99); Potassium, Blood 4.1 mmol/L (3.5-5.5); Salicylate 1.9 mg/dL (2.8-20.0); Sodium, Blood 141 mmol/L (136-145); Total Protein, Blood 7.1 g/dL (6.4-8.2)
[2021-02-25 16:45] LABS: Acetaminophen, Random <2.0 ug/mL (10.0-30.0)
[2021-02-25 18:50] LABS: Source, Urine Clean Catch
[2021-02-25 18:55] LABS: Appearance, Urine Hazy (Clear); Bilirubin, Urine Neg (Neg); Blood, Urine 3+ (Neg); Color, Urine Yellow (P-Yellow); Glucose Qualitative, Urine Neg (Neg); Ketones, Urine Neg (Neg); Leukocyte Esterase, Urine 1+ (Neg); Nitrite, Urine Neg (Neg); Protein, Urine Neg (Neg); Specific Gravity, Urine 1.005 (1.003-1.022); Urobilinogen, Urine NORM (Normal); pH, Urine 6.5 (5.0-8.0)
[2021-02-25 19:03] LABS: Bacteria Many /hpf; Squamous Epithelial Cells Few /hpf (Few)
[2021-02-25 19:07] LABS: U Amphetamine Screen Not Detected; U Barbituate Screen Not Detected; U Benzodiazapine Screen Not Detected; U Buprenorphine Screen Not Detected; U Cannabinoids Screen Not Detected; U Cocaine Screen Not Detected; U Methadone Screen Not Detected; U Methamphetamine Screen Not Detected; U Opiates Screen Not Detected; U Oxycodone Screen Not Detected; U Phencyclidine Screen Not Detected; U Propoxyphene Screen Not Detected
[2021-02-25 20:53] LABS: International Normalized Ratio 1.32
--- NOTE | 2021-02-25 21:52 | NUR ---
REPORT RECIEVED FROM SERGE, E COMMERCE WEB DEVELOPER AND AWAITING PT T/F TO ROOM 312.
[2021-02-25] MEDS ORDERED: ROPI.25 PO (23:21)
[2021-02-26 04:34] LABS: BASOPHILS ABSOLUTE AUTO 0.03 K/mm3 (0.00-0.23); BASOPHILS PERCENT AUTO 0 % (0-2); EOSINOPHILS PERCENT AUTO 0 % (0-6); Hematocrit 36.9 % (33.0-51.0); Hemoglobin 11.8 g/dL (11.5-16.0); IMMATURE GRAN ABSOLUTE AUTO 0.07 K/mm3 (0.00-0.10); IMMATURE GRAN PERCENT AUTO 1 % (0-1); LYMPHOCYTES ABSOLUTE AUTO 0.94 K/mm3 (0.84-5.20); LYMPHOCYTES PERCENT AUTO 7 % (21-46); MONOCYTES PERCENT AUTO 1 % (4-13); Mean Corpuscular HGB 29.3 pg (26.0-34.0); Mean Corpuscular Volume 92 fL (80-100); Mean Platelet Volume 10.7 fL (9.1-12.4); NEUTROPHILS ABSOLUTE AUTO 12.17 K/mm3 (1.96-9.15); NEUTROPHILS PERCENT AUTO 91 % (41-73); Platelet Count 238 K/mm3 (150-400); RDW Coefficient Variation 15.2 % (11.7-14.2); RDW Standard Deviation 50.9 fL (35.1-46.3); Red Blood Cell Count 4.03 M/mm3 (3.80-5.20); White Blood Cell Count 13.31 K/mm3 (4.00-11.30)
[2021-02-26 04:48] LABS: International Normalized Ratio 1.27; Prothrombin Time Results 13.5 Sec (9.7-11.5)
[2021-02-26 04:57] LABS: Alanine Aminotransfer (ALT/SGP 22 U/L (12-78); Albumin, Blood 3.3 g/dL (3.4-5.0); Albumin/Globulin Ratio 0.9 (0.8-1.8); Alk Phos 111 U/L (50-136); Anion Gap 7 mmol/L (6-16); Aspartate Aminotrans (AST/SGOT 13 U/L (12-37); Bilirubin, Total 0.5 mg/dL (0.1-1.0); Blood Urea Nitrogen 23 mg/dL (8-24); Bun/Creatinine Ratio 26.8 (12.0-20.0); CO2, Blood 23 mmol/L (21-32); Calcium, Blood 8.8 mg/dL (8.5-10.1); Chloride, Blood 111 mmol/L (98-108); Creatinine, Blood 0.86 mg/dL (0.40-1.00); Globulin, Blood 3.7 g/dL (2.2-4.0); Glomerular Filtration Rate >60 (60-); Glucose, Blood 313 mg/dL (70-99); Potassium, Blood 4.4 mmol/L (3.5-5.5); Sodium, Blood 141 mmol/L (136-145)
--- NOTE | 2021-02-26 06:15 | NUR ---
T/F AND SUMMARY: PT T/F TO ROOM 312 AT 2228 VIA GURNEY W/ AT BEDSIDE. SHE WAS ABLE TO T/F SELF W/1PA TO TOILET THEN BACK TO BED. FWW PROVIDED D/T CANE USE AT BASELINE. NO NEURO DEFICITS OBSERVED BUT PT ADMITS TO GENERALIZED WEAKNESS AND INTERMITTENT BLURRY VISION. SHE HAD R.SIDE WEAKNESS AND SLURRED SPEECH PRIOR TO ADMIT BUT THIS HAS SINCE RESOLEVED. EXT'S ARE SPASTIC D/T RESTLESS LEGS SYNDROME W/X1 DOSE REQUIP RX'D AND RECIEVED FOR GOOD EFFECT. PT WAS UNSURE OF HOME DOSE SO WILL NEED CLARIFIED W/PHARMACY TODAY. SHE'S NSR AT 90'S BPM ON TELEMETRY AND REMAINS HYPERTENSIVE W/SBP 160'S, NO S/S CARDIAC DISTRESS. MRI OF HEAD SCHEDULED THIS AM, FORM COMPLETED AND FAXED. NS COMMENCED AT 75 ML/HR X1 BAG THEN WILL BE SL. VSS/AFEBRILE, NO ACUTE CHANGES. WCTM AND REPORT TO DAY RN.
--- NOTE | 2021-02-26 09:23 | NUR ---
TO IMAGING FOR MRI VIA W/C
--- NOTE | 2021-02-26 10:15 | NUR ---
RETURN FROM IMAGING
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
[2021-02-27 05:05] LABS: International Normalized Ratio 2.12; Prothrombin Time Results 21.9 Sec (9.7-11.5)
--- NOTE | 2021-02-27 05:12 | NUR ---
SUMMARY: PT A/OX4, CALLS APPROPRIATELY AND IS SBA W/FWW D/T FALL RISK. SHE'S STEADY ON FEET W/NO OBSERVED NEURO DEFICITS BUT HAD A SYNCOPAL FALL PRIOR TO ADMIT W/A CURRENT L.FOOT FX. BP WAS PERSISTANTLY ELEVATED AT START OF SHIFT BUT PT REPORTED SIGNIFICANT ACUTE R.HIP AND L.FOOT PAIN. FLOWER ALERTED W/TYLENOL AND HYDRALZINE RX'D PRN. MEDS WERE PROVIDED W/IMPROVEMENT IN BP AND PAIN RELIEF ACHIEVED. SHE REMAINS NSR AT 80'S-90'S BPM AND DENIES S/S CARDIAC DISTRESS. NO ACUTE CHANGES, VSS/AFEBRILE. WCTM AND REPORT TO DAY RN.
[2021-02-27] MEDS ORDERED: CEFP200 PO (14:54)
[2021-02-27] MEDS ORDERED: ROPI.25 PO (15:03)
--- NOTE | 2021-02-27 15:07 | NUR ---
CARE COORDINATION REFERRAL - ADMIT: 02/25/21 DISCHARGE: 02/27/21 DX: DIZZINESS, CVA CC: KWILCOX ADMIT: 09/17/20 DISCHARGE: 09/20/20 ADMIT: 08/14/20 DISCHARGE: 08/16/20 ALEX CALL: ALLYN (F/U WITH DR. ALEXANDER NEXT WEEK) RESIDENCE: HOME WITH SPOUSE CAREGIVER: FAISAL GRUBER, SPOUSE [phone] DX: ANXIETY, AFIB, CVA, COPD, CHRONIC PAIN, SEE LIST DME: GLUCOMETER, NEBULIZER AND SUPPLIES, SEE LIST CCM: NONE HOME HEALTH: RECOMMENDED BY PT, PATIENT DID NOT WANT. SUMMARY: 02/27/21- PER CHART REVIEW WITH DR. ALEXANDER, PT IS STABLE FOR D/C HOME. MET WITH PT AND HER AND THEY REPORT THAT THE PT WAS INDEPENDENT PRIOR TO COMING INTO THE HOSPITAL. SHE DID NOT HAVE ANY PAID CAREGIVERS BUT HER AND THEIR KIDS AND GRANDKIDS ARE ALWAYS CHECKING IN WITH THEM. PT LIVES AT HOME WITH HER SPOUSE. THEIR HOME IS A SINGLE DWELLING HOME WITH WORKING UTILITIES. THERE IS 1 STEP TO GET INTO THE HOME AND SHE HAS NO CONCERNS WITH THIS. PT IS STILL DRIVING AND EITHER SHE OR HER TAKE HER TO APPTS AND GET HER MEDICATIONS. PT DOES NOT HAVE POA AND NOK IS HER . PT EXPRESSED CONCERN ABOUT AN ULCER ON HER LEFT BIG TOE THAT WAS HEALING BUT HAS NO RE-OPENED. THEY NOTIFIED THE NURSE TO ASK BENJAMIN ABOUT GETTING WOUND CARE SUPPLIES. EXPRESSED HIS FRUSTRATION WITH THEM NOT GETTING THE RESULTS OF HER MRI THAT WAS DONE YESTERDAY AT 10. THEY ARE WORRIED THAT HER UNDERLYING CONDITION COULD BE WORSE AND THERE MAY BE CHANGES IN HER BRAIN. THEY REQUESTED THAT HER MRI IMAGES AND RECORDS BE SENT TO DR. GOODWIN'S OFFICE SINCE HE HAS BEEN FOLLOWING HER CARE. SENT CASE NOTE TO PCP'S STAFF. PT STATES THAT SHE IS ABLE TO MANAGE HER OWN MEDICATIONS AND HER PHARMACY IS [facility]. SHE DOES NOT NEED ANY HELP WITH HOUSEKEEPING OR MEALS. PT STATES THAT SHE WAS ACTIVE WITH [facility] FOR PHYSICAL THERAPY. SHE WOULD LIKE TO HAVE PT AN OUTPATIENT WITH [facility] TO HELP HER WITH BALANCE. DR. ALEXANDER WOULD LIKE TO FOLLOW UP WITH PT IN CLINIC NEXT WEEK. -KJW 02/26/21- PER CHART REVIEW WITH DR. ALEXANDER, PT WILL STAY AND POSSIBLY DISCHARGE ON FRIDAY. PER NURSING NOTE, PT HAS RIGHT-SIDED WEAKNESS, SPEECH HAS IMPROVED SINCE ADMISSIONS. -DOMINIC
--- NOTE | 2021-02-27 17:16 | NUR ---
DISCHARGE DISCHARGE INSTRUCTIONS, MEDICATION LIST AND FOLLOW UP APPOINTMENTS REVIEWED WITH PT AND HER SPOUSE. QUESTIONS AND CONCERNS ADRESSED. [facility] TO CALL AND ARRANGE FOLLOW UP APPOINTMENT WITH PCP AND WITH PT'S NEUROLOGIST IN [place]. PT AND SPOUSE VERBALLY INDICATED UNDERSTANDING OF ALL INSTRUCTIONS RECEIVED. ESCORTED OUT VIA W/C.
[2021-02-28] MEDS ORDERED: MECL25 PO (12:01)
== END 2021-02-27 16:17 | disposition home or self-care (01) ==
LOC: ER 15:35 → MEDS 19:38 → ER 19:38 → MEDS 19:38
PROVIDERS: Emergency Medicine; ADMIT Internal Medicine
DX: R42 Dizziness and giddiness (principal); G45.3 Amaurosis fugax; N39.0 Urinary tract infection, site not specified; B96.1 Klebsiella pneumoniae [K. pneumoniae] as the cause of diseases classified elsewhere; I48.91 Unspecified atrial fibrillation; D68.8 Other specified coagulation defects; E11.42 Type 2 diabetes mellitus with diabetic polyneuropathy; G25.81 Restless legs syndrome; K21.9 Gastro-esophageal reflux disease without esophagitis; E78.5 Hyperlipidemia, unspecified; I10 Essential (primary) hypertension; J44.9 Chronic obstructive pulmonary disease, unspecified; F17.210 Nicotine dependence, cigarettes, uncomplicated; E66.01 Morbid (severe) obesity due to excess calories; Z68.41 Body mass index [BMI] 40.0-44.9, adult; Z88.8 Allergy status to other drugs, medicaments and biological substances; Z88.6 Allergy status to analgesic agent; Z91.041 Radiographic dye allergy status; Z79.4 Long term (current) use of insulin; Z79.01 Long term (current) use of anticoagulants
CPT/HCPCS: 36415; 70450; 70496; 70498; 70551; 80053; 81001; 82947; 85025; 85610; 87077; 87086; 87186; 93005; 93010; 94644; 94760; 96374-59; 96375; 96375-59; 96376-59; 99285-25; A9270; G0378; G0480; J0360; J1200; J2930; J7030; Q9967

== ENCOUNTER 2021-02-28 10:02 | Inpatient (IN) | payer OTHER ==
[~2021-02-28] VITALS: Ht 175.3 cm; Wt 127.7 kg
[~2021-02-28 10:02] MED LIST changes: +CEFP200 PO
[2021-02-28 10:30] LABS: BASOPHILS PERCENT AUTO 1 % (0-2); EOSINOPHILS ABSOLUTE AUTO 0.45 K/mm3 (0.00-0.68); EOSINOPHILS PERCENT AUTO 4 % (0-6); Hematocrit 39.8 % (33.0-51.0); Hemoglobin 12.8 g/dL (11.5-16.0); IMMATURE GRAN ABSOLUTE AUTO 0.03 K/mm3 (0.00-0.10); IMMATURE GRAN PERCENT AUTO 0 % (0-1); LYMPHOCYTES ABSOLUTE AUTO 2.58 K/mm3 (0.84-5.20); LYMPHOCYTES PERCENT AUTO 25 % (21-46); MONOCYTES ABSOLUTE AUTO 0.78 K/mm3 (0.16-1.47); MONOCYTES PERCENT AUTO 8 % (4-13); Mean Corpuscular HGB 29.7 pg (26.0-34.0); Mean Corpuscular HGB Conc 32.2 g/dL (31.5-36.5); Mean Corpuscular Volume 92 fL (80-100); Mean Platelet Volume 11.3 fL (9.1-12.4); NEUTROPHILS ABSOLUTE AUTO 6.45 K/mm3 (1.96-9.15); NEUTROPHILS PERCENT AUTO 62 % (41-73); Platelet Count 299 K/mm3 (150-400); RDW Coefficient Variation 15.3 % (11.7-14.2); RDW Standard Deviation 51.8 fL (35.1-46.3); Red Blood Cell Count 4.31 M/mm3 (3.80-5.20); White Blood Cell Count 10.39 K/mm3 (4.00-11.30)
[2021-02-28 10:46] LABS: Alanine Aminotransfer (ALT/SGP 25 U/L (12-78); Albumin, Blood 3.4 g/dL (3.4-5.0); Albumin/Globulin Ratio 0.9 (0.8-1.8); Alk Phos 103 U/L (50-136); Anion Gap 5 mmol/L (6-16); Aspartate Aminotrans (AST/SGOT 18 U/L (12-37); Bilirubin, Total 0.6 mg/dL (0.1-1.0); Blood Urea Nitrogen 24 mg/dL (8-24); CO2, Blood 27 mmol/L (21-32); Calcium, Blood 8.8 mg/dL (8.5-10.1); Chloride, Blood 107 mmol/L (98-108); Globulin, Blood 3.6 g/dL (2.2-4.0); Glomerular Filtration Rate >60 (60-); Glucose, Blood 96 mg/dL (70-99); Potassium, Blood 4.1 mmol/L (3.5-5.5); Sodium, Blood 139 mmol/L (136-145)
[2021-02-28 10:47] LABS: International Normalized Ratio 2.25; Prothrombin Time Results 23.2 Sec (9.7-11.5)
[2021-02-28] MEDS ORDERED: MECL25 PO (12:01)
--- NOTE | 2021-02-28 21:00 | NUR ---
PCU ADMIT PT BROUGHT TO PCU-14 FROM ER BY CARLOS @ 2049. PT A&O X4. PT REPORTS DIZZINESS W/ SITTING UP AT EDGE OF [facility]. DIIZZINESS THEN SUBSIDED W/ PT ABLE TO STAND AND TURN FROM [facility] TO PCU BED W/ 1 PERSON SBA. PT VSS. SPO2 > 92% ON RA. MONITOR SHOWING AFIB, HR 90's-120. CARDIZEM GTT INFUSING @ 10 MG/HR. PT REPORTS L SIDED NUMBNESS FROM PREVIOUS CVA. WILL CONTINUE TO MONITOR & PROVIDE CARE.
[2021-03-01 04:04] LABS: BASOPHILS PERCENT AUTO 1 % (0-2); EOSINOPHILS ABSOLUTE AUTO 0.62 K/mm3 (0.00-0.68); EOSINOPHILS PERCENT AUTO 6 % (0-6); Hematocrit 37.7 % (33.0-51.0); IMMATURE GRAN ABSOLUTE AUTO 0.04 K/mm3 (0.00-0.10); IMMATURE GRAN PERCENT AUTO 0 % (0-1); LYMPHOCYTES ABSOLUTE AUTO 2.88 K/mm3 (0.84-5.20); LYMPHOCYTES PERCENT AUTO 29 % (21-46); MONOCYTES PERCENT AUTO 10 % (4-13); Mean Corpuscular HGB 29.6 pg (26.0-34.0); Mean Corpuscular HGB Conc 31.8 g/dL (31.5-36.5); Mean Corpuscular Volume 93 fL (80-100); Mean Platelet Volume 11.1 fL (9.1-12.4); NEUTROPHILS ABSOLUTE AUTO 5.23 K/mm3 (1.96-9.15); NEUTROPHILS PERCENT AUTO 53 % (41-73); Platelet Count 258 K/mm3 (150-400); RDW Coefficient Variation 15.4 % (11.7-14.2); RDW Standard Deviation 52.6 fL (35.1-46.3); Red Blood Cell Count 4.06 M/mm3 (3.80-5.20); White Blood Cell Count 9.87 K/mm3 (4.00-11.30)
[2021-03-01 04:17] LABS: International Normalized Ratio 1.86; Prothrombin Time Results 19.4 Sec (9.7-11.5)
[2021-03-01 04:28] LABS: Alanine Aminotransfer (ALT/SGP 27 U/L (12-78); Albumin/Globulin Ratio 0.9 (0.8-1.8); Alk Phos 91 U/L (50-136); Anion Gap 4 mmol/L (6-16); Aspartate Aminotrans (AST/SGOT 15 U/L (12-37); Bilirubin, Total 0.3 mg/dL (0.1-1.0); Blood Urea Nitrogen 24 mg/dL (8-24); Bun/Creatinine Ratio 33.8 (12.0-20.0); CO2, Blood 26 mmol/L (21-32); Calcium, Blood 8.6 mg/dL (8.5-10.1); Chloride, Blood 109 mmol/L (98-108); Creatinine, Blood 0.71 mg/dL (0.40-1.00); Globulin, Blood 3.4 g/dL (2.2-4.0); Glomerular Filtration Rate >60 (60-); Glucose, Blood 179 mg/dL (70-99); Magnesium, Blood 2.1 mg/dL (1.6-2.4); Sodium, Blood 139 mmol/L (136-145); Total Protein, Blood 6.4 g/dL (6.4-8.2)
--- NOTE | 2021-03-01 05:02 | NUR ---
SHIFT SUMMARY PT CONTINUES TO BE A&O X4. VSS. SPO2 > 92% ON RA. MONITOR SHOWING AFIB, HR 80's-120. CARDIZEM GTT INFUSING @ 5 MG/HR. NS GTT INFUSING PER ORDERS. PT W/ REPORT OF RLS W/ BLE INTERMITTENTLY JERKING UNCONTROLLABLY. PT REPORTS RLS SO BAD THAT SOMETIMES HER BUE JERKS WELL & FURTHER STATES SHE CAN'T SHARE A BED W/ HER D/T UNCONTROLLABLY KICKING & HITTING HIM.
--- NOTE | 2021-03-01 05:50 | NUR ---
CONVERSION AFIB TO SR PT AFIB, HR 80's, THEN W/ 3.6 SECOND PAUSE & CONVERSION TO SR W/ PAC's HR 60's @ 0540. PT REPORTING "I JUST FELT LIKE I COULDN'T BREATHE THERE FOR A MOMENT. LIKE I NEEDED TO CATCH MY BREATH." VSS. CARDIZEM GTT PLACED ON STANDBY. EVENT STRIPS PRINTED & PLACED IN CHART.
--- NOTE | 2021-03-01 13:37 | NUR ---
ORTHOSTATIC VITALS TAKEN, DOCUMENTED IN EMR. PATIENT DENIED DIZZINESS WITH EACH POSITION.
--- NOTE | 2021-03-01 17:36 | NUR ---
SHIFT SUMMARY NO ACUTE EVENTS THIS SHIFT, VSS. PATIENT ALERT AND ORIENTED, COOPERATIVE WITH CARE. ON ROOM AIR, TOLERATING WELL. PT ON CARDIAC TELEMETRY, REMAINED IN NSR THROUGH THIS SHIFT. PT ENDORSED CHRONIC BACK/LEG PAIN T/O SHIFT, MEDICATED PER EMAR. PT REPOSITIONED SELF T/O SHIFT. PT DENIED DIZZINESS THIS SHIFT.
[2021-03-02 04:16] LABS: International Normalized Ratio 2.05; Prothrombin Time Results 21.3 Sec (9.7-11.5)
[2021-03-02 04:35] LABS: Anion Gap 5 mmol/L (6-16); Blood Urea Nitrogen 26 mg/dL (8-24); Bun/Creatinine Ratio 36.5 (12.0-20.0); CO2, Blood 28 mmol/L (21-32); Calcium, Blood 8.7 mg/dL (8.5-10.1); Chloride, Blood 109 mmol/L (98-108); Creatinine, Blood 0.71 mg/dL (0.40-1.00); Glomerular Filtration Rate >60 (60-); Glucose, Blood 128 mg/dL (70-99); Potassium, Blood 4.2 mmol/L (3.5-5.5); Sodium, Blood 142 mmol/L (136-145)
--- NOTE | 2021-03-02 05:15 | NUR ---
SHIFT SUMMARY NO ACUTE CHANGES THIS SHIFT. VSS. REMAINS IN SR, NO EPISODE OF AFIB NOTED. REMAINS ON RA. PAIN MEDS PER EMAR, PT STATES MEDS HAVE BEEN SUCCESFUL AT MAINTAINING COMFORTABLE PAIN LEVEL. DRESSING CHANGED ON SURGICAL SITE TO L GREAT TOE TWICE. PT UP TO BATHROOM THIS SHIFT. OTHERWISE, PT USING CALL LIGHT APPRORIATELY. HAS SLEPT OFF AND ON.
[2021-03-02] MEDS ORDERED: CEFP200 PO (11:53)
[2021-03-02] MEDS ORDERED: MECL25 PO (11:56)
--- NOTE | 2021-03-02 12:59 | NUR ---
DISCHARGE PT WAS DISCHARGED TODAY AT APPROXIMATELY 1250. PT'S TELE WAS REMOVED WAS HER IV. PT WAS IN NSR AT TIME OF DISCHARGE OF TELE, VS STABLE, PT ON RA. PT DENIED PAIN AND WAS ABLE TO LEAVE VIA WHEELCHAIR ESCORTED OUT BY MOLD DESIGN ENGINEER. PT WAS GIVEN INSTRUCTIONS TO FOLLOW UP WITH HER PCP AND INSTRUCTIONS REGARDING NEW MEDICATIONS.
--- NOTE | 2021-03-02 13:26 | NUR ---
03/02/21- per chart review with Dr. Li, pt is stable to d/c home today. Met with pt, she has requested a front-wheeled walker because the one she has is a 4-wheeled walker and it doesn't work well for her. Ordered walker through [facility] to be delivered to her home. Reviewed ALEX and pt acknowledged understanding. will be coming to get her. -sanjuanita
== END 2021-03-02 12:54 | disposition home or self-care (01) | DRG 309 ==
LOC: ER 10:02 → PCU 10:03 → ER 10:03 → PCU 19:52
PROVIDERS: Emergency Medicine; ADMIT Student in an Organized Health Care Education/Training Program
DX: I48.91 Unspecified atrial fibrillation (principal); N39.0 Urinary tract infection, site not specified; I95.1 Orthostatic hypotension; I10 Essential (primary) hypertension; E78.5 Hyperlipidemia, unspecified; J44.9 Chronic obstructive pulmonary disease, unspecified; E66.01 Morbid (severe) obesity due to excess calories; K21.9 Gastro-esophageal reflux disease without esophagitis; E11.42 Type 2 diabetes mellitus with diabetic polyneuropathy; G25.81 Restless legs syndrome; M54.5 Low back pain; F17.200 Nicotine dependence, unspecified, uncomplicated; Z86.73 Personal history of transient ischemic attack (TIA), and cerebral infarction without residual deficits; Z79.4 Long term (current) use of insulin; Z79.01 Long term (current) use of anticoagulants; Z68.39 Body mass index [BMI] 39.0-39.9, adult; Z88.5 Allergy status to narcotic agent; Z88.8 Allergy status to other drugs, medicaments and biological substances; Z91.041 Radiographic dye allergy status; Z79.899 Other long term (current) drug therapy
CPT/HCPCS: 36415; 80048; 80053; 82947; 83735; 85025; 85610; 93005; 93010; 94760; 96365; 99285-25; A9270; J7030; J7120

== ENCOUNTER 2021-03-12 10:50 | Emergency (ER) | payer OTHER ==
[~2021-03-12] VITALS: Ht 175.3 cm; Wt 122.5 kg
== END 2021-03-12 15:19 | disposition home or self-care (01) ==
LOC: ER 10:50
DX: M54.5 Low back pain (principal); I48.91 Unspecified atrial fibrillation; J44.9 Chronic obstructive pulmonary disease, unspecified; I10 Essential (primary) hypertension; K21.9 Gastro-esophageal reflux disease without esophagitis; E11.40 Type 2 diabetes mellitus with diabetic neuropathy, unspecified; F17.200 Nicotine dependence, unspecified, uncomplicated; Z79.899 Other long term (current) drug therapy
CPT/HCPCS: 72100; 72170; 99283-25; A9270

== ENCOUNTER 2021-04-18 15:24 | Inpatient (IN) | payer OTHER ==
[~2021-04-18] VITALS: Ht 165.1 cm; Wt 123.8 kg
[~2021-04-18 15:24] MED LIST changes: -ATOR20 PO; -BASAGLAR K100 UNIT/1 SC; -Mirapex0.5 MG PO; -NOVOLOG FL100 UNIT/3 SC
[2021-04-18 15:55] LABS: BASOPHILS ABSOLUTE AUTO 0.09 K/mm3 (0.00-0.23); BASOPHILS PERCENT AUTO 1 % (0-2); EOSINOPHILS ABSOLUTE AUTO 0.21 K/mm3 (0.00-0.68); EOSINOPHILS PERCENT AUTO 2 % (0-6); Hematocrit 36.8 % (33.0-51.0); Hemoglobin 11.7 g/dL (11.5-16.0); IMMATURE GRAN ABSOLUTE AUTO 0.06 K/mm3 (0.00-0.10); IMMATURE GRAN PERCENT AUTO 1 % (0-1); LYMPHOCYTES ABSOLUTE AUTO 1.44 K/mm3 (0.84-5.20); LYMPHOCYTES PERCENT AUTO 14 % (21-46); MONOCYTES ABSOLUTE AUTO 0.55 K/mm3 (0.16-1.47); MONOCYTES PERCENT AUTO 5 % (4-13); Mean Corpuscular HGB 30.3 pg (26.0-34.0); Mean Corpuscular HGB Conc 31.8 g/dL (31.5-36.5); Mean Corpuscular Volume 95 fL (80-100); Mean Platelet Volume 11.2 fL (9.1-12.4); NEUTROPHILS ABSOLUTE AUTO 7.77 K/mm3 (1.96-9.15); NEUTROPHILS PERCENT AUTO 77 % (41-73); Platelet Count 244 K/mm3 (150-400); RDW Coefficient Variation 14.7 % (11.7-14.2); RDW Standard Deviation 51.6 fL (35.1-46.3); Red Blood Cell Count 3.86 M/mm3 (3.80-5.20); White Blood Cell Count 10.12 K/mm3 (4.00-11.30)
[2021-04-18 16:22] LABS: Alanine Aminotransfer (ALT/SGP 23 U/L (12-78); Albumin, Blood 3.2 g/dL (3.4-5.0); Albumin/Globulin Ratio 0.9 (0.8-1.8); Alk Phos 95 U/L (50-136); Anion Gap 4 mmol/L (6-16); Aspartate Aminotrans (AST/SGOT 14 U/L (12-37); Bilirubin, Total 0.3 mg/dL (0.1-1.0); Blood Urea Nitrogen 19 mg/dL (8-24); Bun/Creatinine Ratio 23.2 (12.0-20.0); CO2, Blood 28 mmol/L (21-32); Calcium, Blood 8.6 mg/dL (8.5-10.1); Chloride, Blood 108 mmol/L (98-108); Creatinine, Blood 0.82 mg/dL (0.40-1.00); Globulin, Blood 3.4 g/dL (2.2-4.0); Glomerular Filtration Rate >60 (60-); Glucose, Blood 174 mg/dL (70-99); Potassium, Blood 3.8 mmol/L (3.5-5.5); Sodium, Blood 140 mmol/L (136-145); Total Protein, Blood 6.6 g/dL (6.4-8.2)
[2021-04-18] MEDS ORDERED: METF500C PO (17:07)
[2021-04-18] MEDS ORDERED: ALOGLIPTIN25 M1 PO (17:07)
[2021-04-18] MEDS ORDERED: INSULANPEN SC (17:08)
[2021-04-18] MEDS ORDERED: ATOR40TA PO (17:08)
[2021-04-18] MEDS ORDERED: Amitriptyline H10 MG PO (17:09)
[2021-04-18] MEDS ORDERED: GABA300 PO (17:09)
[2021-04-18] MEDS ORDERED: MIRAPEX0.75 M1 PO (17:10)
[2021-04-18] MEDS ORDERED: GEMF600 PO (17:11)
[2021-04-18] MEDS ORDERED: WARF5 PO (17:13)
[2021-04-18 17:14] LABS: International Normalized Ratio 3.44; Prothrombin Time Results 34.6 Sec (9.7-11.5)
[2021-04-18] MEDS ORDERED: Prinivil10 MG PO (17:34)
[2021-04-18] MEDS ORDERED: DULO60 PO (17:34)
[2021-04-18] MEDS ORDERED: Carvedilol12.5 MG PO (17:35)
[2021-04-18] MEDS ORDERED: NOVOLOG FL100 UNIT/3 SC (17:36)
[2021-04-18 18:38] LABS: CHOL/HDL RATIO 2.6; Cholesterol 114 mg/dL (50-200); HDL Cholesterol 44 mg/dL (>39); LDL/HDL RATIO 1.1; Low Density Lipoprotein Chol 47 mg/dL (0-110); Triglycerides 113 mg/dL (30-160); Very Low Density Lipoprot Chol 22 mg/dL (6-32)
[2021-04-19] MEDS ORDERED: ROPI.25 PO (02:37)
[2021-04-19] MEDS ORDERED: CEFP200 PO (02:39)
[2021-04-19] MEDS ORDERED: DOCU100 PO (02:40)
[2021-04-19] MEDS ORDERED: MECL25 PO (02:42)
[2021-04-19] MEDS ORDERED: Acetaminophen325 M1 PO (02:44)
--- NOTE | 2021-04-19 03:20 | NUR ---
ARRIVAL TO ICU PT ARRIVED TO ICU 2 AT 2238 VIA ED BED AND WAS TRANSFERED TO ICU BED WITH SLIDE SHEET. PT IS INTUBATED WITH VENT SETTINGS AC 18, TV 400, PEEP 5, FIO2 50%. PT REACTIVE TO NOXIOUS STIMULI AND APPEARS RESTLESS, FACE GRIMICING, HX OF RLS NOTED; DR LEMON NOTIFIED AND PROVIDED ORDERS TO GIVE FENTANYL Q2HR PRN RATHER THAN Q4HR PRN, FENTANYL GIVEN AND HELPFUL; PROPOFOL INFUSING AT 50MCG/KG/MIN. AFEBRILE. HR 70'S. SBP 130-150. OG CLAMPED. LOYOLA PATENT AND DRAINING TO GRAVITY. EPI INFUSING AT 1MCG/MIN. PT DAUGHTER AT BEDSIDE BRIEFLY BEFORE LEAVING. SEE ADDMISSION ASSESSMENT FOR FULL ASSESSMENT.
[2021-04-19 03:53] LABS: BASOPHILS ABSOLUTE AUTO 0.04 K/mm3 (0.00-0.23); BASOPHILS PERCENT AUTO 0 % (0-2); EOSINOPHILS PERCENT AUTO 0 % (0-6); Hematocrit 40.9 % (33.0-51.0); Hemoglobin 12.9 g/dL (11.5-16.0); IMMATURE GRAN ABSOLUTE AUTO 0.08 K/mm3 (0.00-0.10); IMMATURE GRAN PERCENT AUTO 1 % (0-1); LYMPHOCYTES ABSOLUTE AUTO 1.18 K/mm3 (0.84-5.20); LYMPHOCYTES PERCENT AUTO 10 % (21-46); MONOCYTES PERCENT AUTO 1 % (4-13); Mean Corpuscular HGB 29.9 pg (26.0-34.0); Mean Corpuscular HGB Conc 31.5 g/dL (31.5-36.5); Mean Corpuscular Volume 95 fL (80-100); NEUTROPHILS ABSOLUTE AUTO 10.82 K/mm3 (1.96-9.15); NEUTROPHILS PERCENT AUTO 89 % (41-73); Platelet Count 290 K/mm3 (150-400); RDW Coefficient Variation 14.5 % (11.7-14.2); RDW Standard Deviation 50.7 fL (35.1-46.3); Red Blood Cell Count 4.31 M/mm3 (3.80-5.20); White Blood Cell Count 12.22 K/mm3 (4.00-11.30)
[2021-04-19 04:12] LABS: Anion Gap 7 mmol/L (6-16); Blood Urea Nitrogen 17 mg/dL (8-24); Bun/Creatinine Ratio 21.6 (12.0-20.0); CO2, Blood 23 mmol/L (21-32); Calcium, Blood 9.1 mg/dL (8.5-10.1); Chloride, Blood 109 mmol/L (98-108); Creatinine, Blood 0.79 mg/dL (0.40-1.00); Glomerular Filtration Rate >60 (60-); Glucose, Blood 280 mg/dL (70-99); Potassium, Blood 4.2 mmol/L (3.5-5.5); Sodium, Blood 139 mmol/L (136-145)
[2021-04-19 04:13] LABS: International Normalized Ratio 3.36; Prothrombin Time Results 33.9 Sec (9.7-11.5)
--- NOTE | 2021-04-19 06:26 | NUR ---
END OF SHIFT SUMMARY NO ACUTE EVENTS OVER NIGHT. PT CONT TO BE INTUBATED WITH VENT SETTINGS AC 18, TV 400, PEEP 5, FIO2 40%; BREATH SOUNDS CLEAR. PT REACTIVE TO PAINFUL STIMULI WHEN PROPOFOL INFUSING AT 50MCG/KG/MIN; PT BECOMES RESTLESS, PULLING AT RESTRAINTS, AND BITING ETT WHEN ATTEMPTED TO TITRATE PROPOFOL LOWER THAN 50MCG/KG/MIN; PRN FENTANYL AVAILABLE, GIVEN, AND HELPFUL. AFEBRILE. HR 70-80'S. SBP 120-140'S. OG CLAMPED. LOYOLA PATENT AND DRAINING TO GRAVITY. WILL REPORT TO AM RN WHEN AVAILABLE.
--- NOTE | 2021-04-19 07:30 | NUR ---
ASSUMED CARE: PT INTUBATED WITH SETTINGS AC 18/400/5/40%. PROPOFOL AT 45MCG AT THIS TIME. NSR ON TELE WITH HR IN THE 80S. OG IN PLACE. LOYOLA CATH WITH CLEAR YELLOW URINE. RT AT BEDSIDE. NO ACUTE NEEDS OR CONCERNS AT THIS TIME.
--- NOTE | 2021-04-19 08:30 | NUR ---
DR ESTRELLA CAME TO SEE PT AND ORDERED CXR FOR THIS AM. ORDER PLACED, IN THE MEAN TIME WANTED SEDATION VACATION. PT BECAME RESTLESS AND AGITATED, MOVING ALL EXTREMITIES BUT NO PURPOSEFUL MOVEMENTS. AFTER SEVERAL MINUTES PT TRIED TO OPEN EYES WHEN TOLD TO. PROPOFOL NOW AT 20MCG AND 2MG ATIVAN GIVEN. AWAITING CXR TO DETERMINE FURTHER ACTION
--- NOTE | 2021-04-19 10:06 | NUR ---
PT EXTUBATED AT 0955. REMAINS ON 4L O2 VIA NC. PT IS DROWSY AND CONFUSED BUT PLEASANT AND EASILY AROUSEABLE. BED ALARM ON
--- NOTE | 2021-04-19 13:30 | NUR ---
DR LOPEZ CAME TO SEE PT THIS AM AND STATED PT COULD BE MED/TELE STATUS. DR ESTRELLA AGREED. PT REMAINED ON 4L O2 VIA NC. STILL SLIGHTLY CONFUSED BUT REORIENTABLE. TRANSFERRED VIA BED TO [facility]. REPORT GIVEN BY GURINDER TROTTER TO KOFI TROTTER.
--- NOTE | 2021-04-19 15:31 | NUR ---
ADMIT: 04/18/21 DISCHARGE: DX: Anaphylaxis CC: kwilcox ALEX CALL:Marquis Johnson, Spouse / Partner, RESIDENCE: Home with CAREGIVER: self DX: COPD, DM, GERD, CVA, see list DME: 4WW, DM supplies, nebulizer and equipment CCM: none HOME HEALTH: none SUMMARY: 04/19/21- Per chart review with Dr. Guillory, pt had CVA and had CT with contrast. Pt had anaphylaxis reaction to contract dye and had to be intubated. Pt became stable and was extubated today and is currently on 4L O2. PT, OT and speech have been ordered. It is noted that pt has a L-sided weakness, deficit from CVA. No d/c plan at this time. -sanjuanita
--- NOTE | 2021-04-19 19:05 | NUR ---
ASSUMED CARE: RECEIVED REPORT FROM ROSE MARIE KIRBY. PT ASLEEP, RESPS E/U, NO ACUTE DISTRESS NOTED. NO ACUTE NEEDS ASSESSED AT THIS TIME. CALL LIGHT, POSSESSIONS IN REACH, BED IN LOW AND LOCKED POSITION WITH ALARMS ON.
--- NOTE | 2021-04-20 04:50 | NUR ---
KENNEL HAND SUMMARY PT RESTING, IN NAD. INCREASINGLY ALERT THIS AM, CONVERSATIONAL AND JOKING AROUND WITH STAFF. EXPRESSING DESIRE TO EAT, REINFORCED NPO DIET ORDER D/T ASPIRATION RISK AND PENDING SPEECH THERAPY EVALUATION; PT INDICATED UNDERSTANDING. PROVIDED WITH LEMON MOUTH SWABS TO MOISTEN MOUTH; VOICE RASPY AND SOFT D/T RECENT EXTUBATION. VS REVIEWED,WNL. PT CONTINUES TO HAVE RESTLESS LEGS, ENCOURAGED POSITION OF COMFORT. NO ACUTE CONCERNS TO REPORT OVERNIGHT; PT APPEARED TO SLEEP WELL. NO ACUTE NEEDS ASSESSED AT THIS TIME. CALL LIGHT, POSSESSIONS IN REACH, BED IN LOW AND LOCKED POSITION WITH ALARMS ON. WILL CONTINUE TO PROVIDE CARE NEEDED UNTIL HANDOFF GIVEN TO ONCOMING RN.
[2021-04-20 06:05] LABS: International Normalized Ratio 3.65; Prothrombin Time Results 36.6 Sec (9.7-11.5)
--- NOTE | 2021-04-20 13:35 | NUR ---
04/20/21- per chart review [facility] Dr. Joyce, pt still needs to see speech for evaluation. PT and OT have seen pt and they are recommending shelter post hospital care. LMOM for about preference for placement for SNF. Started printing information for packet to send to SNF. -sanjuanita
--- NOTE | 2021-04-20 17:54 | NUR ---
SHIFT SUMMARY PT AWAKE TODAY DURING SHIFT REPORT. PT WAITING FOR SP EVAL AND BECOMING ANXIOUS AND TEARFUL. PT ON PHONE CURSING AT FAMILY. FAMILY CALLED HERE TO REPORT THEY UNDERSTAND PT HAS TO WAIT FOR SWALLOW EVAL BEFORE EATING. NIR PARMAR D/C'D; SEE CHART. PT GRATEFUL FOR THAT AND BECOME A LITTLE LESS ANXIOUS. PT ASSISTED TO CHAIR AT , REMAINING UNTIL AFTER LUNCH. PT HAS BEEN UP TO BTHRM SEVERAL TIMES, USING FWW AND 1P ASSIST. DR JUDGE IN TO SEE PT EARLY, AND LATER OT/PT FOR TX. PT TOLERATED WELL. PT PULLED IV SITE TO THIS AFTERNOON. NEW IV PLACED BY JOHN TROTTER. PT UP TO CHAIR AND BACK TO BED OFF AND ON ALL DAY; VERY RESTLESS. S/O IN TO VISIT THIS AFTERNOON, BUT SEEMS TO AGITATE HER MORE. BED AND CHAIR ALARM ON FOR SAFETY, PT DOES NOT ALWAYS REMEMBER TO USE CALL LT.
--- NOTE | 2021-04-21 02:27 | NUR ---
REPORT GIVEN TO ISABELL TROTTER. NO ACUTE CHANGES SINCE CHANGE OF SHIFT. PATIENT ALTERT AND ORIENTED, ABLE TO MAKE NEEDS KNOWN. PATIENT PLANS TO SO TO HALF-WAY AT DISCHARGE. BED LOW AND LOCKED DINORAH LIGHT WITHIN REACH.
--- NOTE | 2021-04-21 02:51 | NUR ---
RECEIVED REPORT FROM ROSE MARIE PEREZ. ASSUMED CARE OF PT. WILL PROVIDE CARE UNTIL REST OF SHIFT.
--- NOTE | 2021-04-21 04:23 | NUR ---
SHIFT SUMMMARY: A/O. UP WITH SBA. ON RA. USES CALL LT APPROPRIATELY. MEDICATED X 1 WITH 50 MCG OF FENTANYL FOR 8/10 PAIN ON HER LEFT LOWER BACK. NO OTHER ACUTE CHANGES. SINUS RHYTHM AT 76 ON TELE. WILL CONTINUE TO PROVIDE CARE UNTIL SHIFT REPORT.
[2021-04-21 04:27] LABS: BASOPHILS ABSOLUTE AUTO 0.01 K/mm3 (0.00-0.23); BASOPHILS PERCENT AUTO 0 % (0-2); EOSINOPHILS PERCENT AUTO 0 % (0-6); Hemoglobin 12.4 g/dL (11.5-16.0); IMMATURE GRAN ABSOLUTE AUTO 0.21 K/mm3 (0.00-0.10); IMMATURE GRAN PERCENT AUTO 1 % (0-1); LYMPHOCYTES ABSOLUTE AUTO 0.83 K/mm3 (0.84-5.20); LYMPHOCYTES PERCENT AUTO 5 % (21-46); MONOCYTES ABSOLUTE AUTO 0.41 K/mm3 (0.16-1.47); MONOCYTES PERCENT AUTO 3 % (4-13); Mean Corpuscular HGB 29.9 pg (26.0-34.0); Mean Corpuscular HGB Conc 31.8 g/dL (31.5-36.5); Mean Corpuscular Volume 94 fL (80-100); Mean Platelet Volume 11.3 fL (9.1-12.4); NEUTROPHILS ABSOLUTE AUTO 14.19 K/mm3 (1.96-9.15); NEUTROPHILS PERCENT AUTO 91 % (41-73); Platelet Count 277 K/mm3 (150-400); RDW Coefficient Variation 14.3 % (11.7-14.2); RDW Standard Deviation 49.9 fL (35.1-46.3); Red Blood Cell Count 4.15 M/mm3 (3.80-5.20); White Blood Cell Count 15.65 K/mm3 (4.00-11.30)
[2021-04-21 04:42] LABS: International Normalized Ratio 2.23
--- NOTE | 2021-04-21 17:27 | NUR ---
SHIFT SUMMARY PT AOX3; FORGETFUL AT TIMES. PT MEDICATED FOR PAINX1; C/O OF PAIN ON HER LEFT UPPER QUADRANT WHERE SHE FELL AT HOME. PT HAS BEEN DEALING WITH HIGH CBG; CALLED DR AND PT NOW RECEIVED HS SLIDING AND WILL RECHECK AFTER 30 MINS IF CBG STILL ELEVATED WHICH WAS MORE THAN 400S. AND MAO BOWER. BED IS IN THE LOWEST POSITION AND CALL LIGHT WITHIN REACH
--- NOTE | 2021-04-21 18:04 | NUR ---
CALLED THE DR FOR CONSISTENT HIGH CBG OF 457; RECEIVED ORDER FOR 20U OF INSULIN REGULAR. WILL RECHECK IN 45 MINS. HOLD TRAY UNTIL RECHECK
--- NOTE | 2021-04-21 19:03 | NUR ---
CALLED THE DR AND INFORMED ABOUT THE CBG THAT IS 460; WILL PUT AN ORDER FOR METABOLIC PANEL; WILL INFORM THE NIGHT RN TO CALL BACK AFTER THE RESULT FOR THE PANEL
[2021-04-21 19:39] LABS: Anion Gap 6 mmol/L (6-16); Blood Urea Nitrogen 30 mg/dL (8-24); Bun/Creatinine Ratio 38.8 (12.0-20.0); CO2, Blood 26 mmol/L (21-32); Calcium, Blood 8.5 mg/dL (8.5-10.1); Chloride, Blood 104 mmol/L (98-108); Creatinine, Blood 0.77 mg/dL (0.40-1.00); Glomerular Filtration Rate >60 (60-); Glucose, Blood 438 mg/dL (70-99); Potassium, Blood 4.3 mmol/L (3.5-5.5); Sodium, Blood 136 mmol/L (136-145)
[2021-04-22 04:25] LABS: BASOPHILS ABSOLUTE AUTO 0.03 K/mm3 (0.00-0.23); BASOPHILS PERCENT AUTO 0 % (0-2); EOSINOPHILS PERCENT AUTO 0 % (0-6); Hematocrit 38.5 % (33.0-51.0); Hemoglobin 12.5 g/dL (11.5-16.0); IMMATURE GRAN ABSOLUTE AUTO 0.17 K/mm3 (0.00-0.10); IMMATURE GRAN PERCENT AUTO 1 % (0-1); LYMPHOCYTES ABSOLUTE AUTO 2.32 K/mm3 (0.84-5.20); LYMPHOCYTES PERCENT AUTO 14 % (21-46); MONOCYTES ABSOLUTE AUTO 1.74 K/mm3 (0.16-1.47); MONOCYTES PERCENT AUTO 11 % (4-13); Mean Corpuscular HGB Conc 32.5 g/dL (31.5-36.5); Mean Corpuscular Volume 93 fL (80-100); Mean Platelet Volume 11.2 fL (9.1-12.4); NEUTROPHILS ABSOLUTE AUTO 12.13 K/mm3 (1.96-9.15); NEUTROPHILS PERCENT AUTO 74 % (41-73); Platelet Count 274 K/mm3 (150-400); RDW Standard Deviation 47.7 fL (35.1-46.3); Red Blood Cell Count 4.16 M/mm3 (3.80-5.20); White Blood Cell Count 16.39 K/mm3 (4.00-11.30)
[2021-04-22 04:39] LABS: International Normalized Ratio 1.79; Prothrombin Time Results 18.7 Sec (9.7-11.5)
[2021-04-22 04:54] LABS: Alanine Aminotransfer (ALT/SGP 35 U/L (12-78); Albumin, Blood 2.9 g/dL (3.4-5.0); Albumin/Globulin Ratio 0.9 (0.8-1.8); Alk Phos 86 U/L (50-136); Anion Gap 6 mmol/L (6-16); Aspartate Aminotrans (AST/SGOT 18 U/L (12-37); Bilirubin, Total 0.4 mg/dL (0.1-1.0); Blood Urea Nitrogen 27 mg/dL (8-24); Bun/Creatinine Ratio 29.2 (12.0-20.0); CO2, Blood 25 mmol/L (21-32); Calcium, Blood 8.5 mg/dL (8.5-10.1); Chloride, Blood 108 mmol/L (98-108); Creatinine, Blood 0.93 mg/dL (0.40-1.00); Globulin, Blood 3.4 g/dL (2.2-4.0); Glomerular Filtration Rate >60 (60-); Glucose, Blood 196 mg/dL (70-99); Potassium, Blood 4.2 mmol/L (3.5-5.5); Sodium, Blood 139 mmol/L (136-145); Total Protein, Blood 6.3 g/dL (6.4-8.2)
--- NOTE | 2021-04-22 06:42 | NUR ---
SHIFT SUMMARY PT IS A 60 Y/O FEMALE, ADMITTED FOR ANAPHYLAXIS. SHE IS A&O X 4, 1PA TO THE BATHROOM. PT REPORTED R SIDE PAIN FROM HER FALL AT HOME PRIOR TO ADMISSION, AND WAS MEDICATED 2X FOR PAIN WITH PRN FENTANYL. NO C/O NAUSEA OR SOB. VITAL SIGNS STABLE. TELE SHOWED NSR IN THE 70S. NO ACUTE CHANGES IN PT CONDITION NOTED. WILL CONTINUE TO MONITOR AND TREAT PER EMAR UNTIL HAND OFF TO DAY SHIFT RN.
[2021-04-23 04:34] LABS: BASOPHILS ABSOLUTE AUTO 0.03 K/mm3 (0.00-0.23); BASOPHILS PERCENT AUTO 0 % (0-2); EOSINOPHILS ABSOLUTE AUTO 0.11 K/mm3 (0.00-0.68); EOSINOPHILS PERCENT AUTO 1 % (0-6); Hemoglobin 12.3 g/dL (11.5-16.0); IMMATURE GRAN PERCENT AUTO 1 % (0-1); LYMPHOCYTES ABSOLUTE AUTO 3.26 K/mm3 (0.84-5.20); LYMPHOCYTES PERCENT AUTO 21 % (21-46); MONOCYTES ABSOLUTE AUTO 1.66 K/mm3 (0.16-1.47); MONOCYTES PERCENT AUTO 11 % (4-13); Mean Corpuscular HGB 30.2 pg (26.0-34.0); Mean Corpuscular HGB Conc 32.4 g/dL (31.5-36.5); Mean Corpuscular Volume 93 fL (80-100); Mean Platelet Volume 11.1 fL (9.1-12.4); NEUTROPHILS ABSOLUTE AUTO 10.26 K/mm3 (1.96-9.15); NEUTROPHILS PERCENT AUTO 66 % (41-73); Platelet Count 250 K/mm3 (150-400); RDW Coefficient Variation 13.8 % (11.7-14.2); RDW Standard Deviation 47.1 fL (35.1-46.3); Red Blood Cell Count 4.07 M/mm3 (3.80-5.20); White Blood Cell Count 15.52 K/mm3 (4.00-11.30)
[2021-04-23 04:48] LABS: International Normalized Ratio 2.46; Prothrombin Time Results 25.2 Sec (9.7-11.5)
--- NOTE | 2021-04-23 05:24 | NUR ---
SHIFT SUMMARY PT IS A 60 Y/O FEMALE, ADMITTED FOR ANAPHYLAXIS. SHE IS A&O X 3, 1PA TO THE BATHROOM. SHE WAS MEDICATED FOR RIB PAIN WITH PRN OXYCODONE FROM A FALL AT HOME PRE-ADMISSION. NO C/O NAUSEA OR SOB. VITAL SIGNS STABLE. TELE SHOWED NSR IN THE 70S. NO ACUTE CHANGES IN PT CONDITION NOTED DURING THE NIGHT. WILL CONTINUE TO MONITOR AND TREAT PER EMAR UNTIL HAND OFF TO DAY SHIFT RN.
--- NOTE | 2021-04-23 11:53 | NUR ---
Update 04/23/21- LMOM for to find out what SNF family would like pt to go to. Spoke with daughter Eula Bachelor [phone]. She reports that her younger sister would be the person to provide care of mom. Daughter reports that they did not have the best experience at [facility], so they would like to go to [facility]. Packet created and waiting to hear from to see if pt is stable to d/c to SNF. -sanjuanita
--- NOTE | 2021-04-23 19:46 | NUR ---
shift summary: pt a/o x3. pleasant and cooperative. standby assist. pt ate well, c/o left side abd pain but resolved to tolerable once up out of bed. pt bs better w/scheduled long acting insulin. no acute concerns this shift.
[2021-04-24 05:43] LABS: International Normalized Ratio 2.82; Prothrombin Time Results 28.7 Sec (9.7-11.5)
--- NOTE | 2021-04-24 07:49 | NUR ---
SHIFT SUMMARY NO ACUTE CHANGES. VSS. IV L AC. ROOM AIR. TELE NSR 60'S. WILL GIVE REPORT TO DAY SHIFT NURSE.
--- NOTE | 2021-04-24 14:23 | NUR ---
Update 04/24/21: Sent packet to [facility] for review and contacted Anel. Request for quick decision if possible. Anel called me back and [facility] has accepted pt. Prior auth requested with urgent need for approval due to risk of exposure in hospital and need for hospital beds. Hoping to get approval to send pt. today. Will discuss with pt. and family once prior auth received.
--- NOTE | 2021-04-24 18:12 | NUR ---
Update 04/24/21: Sent packet to [facility] for review and contacted Anel. Request for quick decision if possible. Anel called me back and [facility] has accepted pt. Prior auth requested with urgent need for approval due to risk of exposure in hospital and need for hospital beds. Hoping to get approval to send pt. today. Will discuss with pt. and family once prior auth received. Prior auth was not received by 1800. Spoke with patient's Marquis to provide update. I advised him that we are likely to receive prior auth in the am. He was concerned regarding the possibility of her being rushed out of the hospital. I advised him that she will . I advised that she would only be discharged to the facility if appropriate. I will discuss her care with Dr. Bonilla in the morning to ensure everything has remained stable and update him. Family was happy to hear that and denied any concerns/questions at this time. We will arrange transport once pt. is appropriate and everything is in place with SNF.
--- NOTE | 2021-04-24 19:22 | NUR ---
SHIFT SUMMARY NO ACUTE CHANGES NOTED TO PT THIS SHIFT. PT AAOX4, ABLE TO MAKE NEEDS KNOWN. PLEASANT AND COOPERATIVE TO CARE. MEDICATED FOR PAIN PER EMAR. NO C/O CP, SOB OR N&V. PT ON IV ABX ORDERED, NO ASE NOTED. BED AT LOWEST POSITION. CALL LIGHT WITHIN REACH. AWAITING PLACEMENT.
--- NOTE | 2021-04-25 01:26 | NUR ---
HIGH BLOOD SUGAR 400'S PT BLOOD SUGAR OF 428. NO CHANGES IN PT. SCHEDULED SEMGLEE [address] WILSON NOTIFIED. PT ALREADY ON SLIDING SCALE. NO NEW ORDERS. WILL CONTINUE TO MONITOR. 2350 BLOOD SUGAR OF 336, TRENDING IN RIGHT DIRECTION.
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
[2021-04-25 04:50] LABS: International Normalized Ratio 2.68; Prothrombin Time Results 27.4 Sec (9.7-11.5)
[2021-04-25] MEDS ORDERED: WARF10 PO (11:00)
[2021-04-25] MEDS ORDERED: ACET500 PO (11:00)
[2021-04-25] MEDS ORDERED: ASPI81CH PO (11:01)
[2021-04-25] MEDS ORDERED: PRED20 PO (11:04)
[2021-04-25 13:04] LABS: SARS-Cov-2 (COVID-19) PCR, MMC NEGATIVE (NEGATIVE)
--- NOTE | 2021-04-25 16:30 | NUR ---
PHONE CALL TO [facility] ATTEMPTED TO CALL [facility] FOR REPORT ON PATIENT PRIOR TO TRANSFER. WAS PLACED ON HOLD BY STAFF FOR APPROXIMATELY 3O - 35 MINS. AWAITING CALL BACK FROM [facility] STAFF.
--- NOTE | 2021-04-25 17:29 | NUR ---
DISCHARGE SUMMARY PT DISCHARGE TO FACILITY ORDERED. REPORT GIVEN TO NURSE MOLINA AT [facility] VIA PHONE CALL. NO NOTED CONCERNS OR COMPLAINTS NOTED FROM PATIENT PRIOR TO DISCHARGE. PATIENT VERBALIZED UNDERSTANDING OF DISCHARGE INSTRUCTIONS AND ORDERS. NO C/O PAIN OR ANY DISCOMFORT PRIOR TO D/C. IV LINE AND TELE DISCONTINUED PRIOR TO DC. DC PAPERWORK GIVEN TO [facility] STAFF.
--- NOTE | 2021-04-25 17:53 | NUR ---
Update 04/25/21: Verified with [facility] Anel this am that they have received patient's information. Per Anel they have received everything needed. Prior auth approved and information provided to Anel. Confirmed twice that at 3:30 pm transport time will be acceptable with facility. Anel confirmed. Pt. notified and floor nurse notified. Received call from [facility] that [facility] has stated they did not accept pt. Same call received from [facility] nurse caring for pt. I contacted Anel with [facility] per protocol. Anel states that it was an error and patient was "accidentally removed from the nurses board at [facility]." Anel states she is in the process of adding her again. She is requesting additional face sheet to be scanned in and sent to her. That was completed. Anel notified [facility] transport is appropriate. I updated nurse on floor caring for pt. Received call that [facility] staff was refusing to take report from nurse. Again contacted Anel with central admissions. Requested that she contact [facility] director Ibis at this point. Ibis approved on of two or our previously approved Foreman patients. Luz Marina was approved. Notified nurse and advised all info sent and received. Contacted again that [facility] is refusing to accept report. At that time I contacted the Clinical Owner Manager on site at [facility] and advised her of the situation. Discussed appropriateness of denying discharge at this point. Pt. is in the wheelchair waiting in room with [facility] crew and nursing staff. Amanda with [facility] agreed to move forward with transport. Handed my cell phone directly to floor nurse caring for pt. to give report to Amanda. Packet faxed directly to facility and sent as a packet with transport crew.
== END 2021-04-25 17:05 | DRG 64 ==
LOC: ER 15:24 → MEDS 18:18 → ERHOLD 18:18 → ICUE 18:18 → MEDS 04-19 13:35
PROVIDERS: Family Medicine; Student in an Organized Health Care Education/Training Program; ADMIT Family Medicine
PROC: 0BH18EZ Insertion of Endotracheal Airway into Trachea, Via Natural or Artificial Opening Endoscopic (ICD-10-PCS; principal; 2021-04-18)
PROC: 5A1935Z Respiratory Ventilation, Less than 24 Consecutive Hours (ICD-10-PCS; 2021-04-18)
DX: I63.89 Other cerebral infarction (principal); J69.0 Pneumonitis due to inhalation of food and vomit; G81.94 Hemiplegia, unspecified affecting left nondominant side; Z68.41 Body mass index [BMI] 40.0-44.9, adult; T88.6XXA Anaphylactic reaction due to adverse effect of correct drug or medicament properly administered, initial encounter; E11.9 Type 2 diabetes mellitus without complications; J44.9 Chronic obstructive pulmonary disease, unspecified; G89.29 Other chronic pain; F17.210 Nicotine dependence, cigarettes, uncomplicated; R47.81 Slurred speech; M54.5 Low back pain; K21.9 Gastro-esophageal reflux disease without esophagitis; F41.9 Anxiety disorder, unspecified; R29.810 Facial weakness; F81.81 Disorder of written expression; E11.649 Type 2 diabetes mellitus with hypoglycemia without coma; E78.5 Hyperlipidemia, unspecified; T50.8X5A Adverse effect of diagnostic agents, initial encounter; Y92.238 Other place in hospital as the place of occurrence of the external cause; I10 Essential (primary) hypertension; I48.0 Paroxysmal atrial fibrillation; E11.42 Type 2 diabetes mellitus with diabetic polyneuropathy; Z88.8 Allergy status to other drugs, medicaments and biological substances; Z91.041 Radiographic dye allergy status; Z88.6 Allergy status to analgesic agent; Z90.49 Acquired absence of other specified parts of digestive tract; Z98.890 Other specified postprocedural states; Z86.010 Personal history of colon polyps; Z79.01 Long term (current) use of anticoagulants; Z79.4 Long term (current) use of insulin
CPT/HCPCS: 31500; 36415; 51702; 70450; 70496; 70498; 71045; 71046; 80048; 80053; 80061; 82947; 83036; 83605; 84443; 85025; 85610; 87040; 87070; 87205; 92610; 93005; 93010; 94002; 94003; 94640; 96365-59; 96366-59; 96367-59; 96372-59; 96375-59; 96376-59; 97110; 97112; 97116; 97162; 97167; 97530; 97535; 99284-25; 99291-25; A9270; J0171; J0295; J1200; J1815; J2060; J2704; J2930; J3010; J3490; J7050; J7060; J7512; Q9967; U0004

== ENCOUNTER → 2021-05-11 | Outpatient (CLI) | payer OTHER ==
[~2021-05-11] MED LIST changes: +ACET500 PO; +ALOGLIPTIN25 M1 PO; +ASPI81CH PO; +ATOR40TA PO; +Acetaminophen325 M1 PO; +Carvedilol12.5 MG PO; +METF500C PO; +MIRAPEX0.75 M1 PO; +NOVOLOG FL100 UNIT/3 SC; +WARF10 PO
[2021-05-11 13:56] LABS: BASOPHILS ABSOLUTE AUTO 0.04 K/mm3 (0.00-0.23); BASOPHILS PERCENT AUTO 1 % (0-2); EOSINOPHILS ABSOLUTE AUTO 0.29 K/mm3 (0.00-0.68); EOSINOPHILS PERCENT AUTO 4 % (0-6); Hematocrit 37.9 % (33.0-51.0); IMMATURE GRAN ABSOLUTE AUTO 0.02 K/mm3 (0.00-0.10); IMMATURE GRAN PERCENT AUTO 0 % (0-1); LYMPHOCYTES ABSOLUTE AUTO 2.64 K/mm3 (0.84-5.20); LYMPHOCYTES PERCENT AUTO 32 % (21-46); MONOCYTES ABSOLUTE AUTO 0.58 K/mm3 (0.16-1.47); MONOCYTES PERCENT AUTO 7 % (4-13); Mean Corpuscular HGB 29.9 pg (26.0-34.0); Mean Corpuscular HGB Conc 31.7 g/dL (31.5-36.5); Mean Corpuscular Volume 95 fL (80-100); Mean Platelet Volume 10.5 fL (9.1-12.4); NEUTROPHILS ABSOLUTE AUTO 4.73 K/mm3 (1.96-9.15); NEUTROPHILS PERCENT AUTO 57 % (41-73); Platelet Count 295 K/mm3 (150-400); RDW Coefficient Variation 14.7 % (11.7-14.2); RDW Standard Deviation 51.3 fL (35.1-46.3); Red Blood Cell Count 4.01 M/mm3 (3.80-5.20)
[2021-05-11 14:07] LABS: Alanine Aminotransfer (ALT/SGP 23 U/L (12-78); Albumin, Blood 3.2 g/dL (3.4-5.0); Albumin/Globulin Ratio 0.8 (0.8-1.8); Alk Phos 115 U/L (40-126); Anion Gap 6 mmol/L (6-16); Aspartate Aminotrans (AST/SGOT 12 U/L (12-37); Bilirubin, Total 0.2 mg/dL (0.1-1.0); Blood Urea Nitrogen 23 mg/dL (8-24); CO2, Blood 29 mmol/L (21-32); Calcium, Blood 8.5 mg/dL (8.5-10.1); Chloride, Blood 110 mmol/L (98-108); Creatinine, Blood 0.82 mg/dL (0.40-1.00); Globulin, Blood 3.8 g/dL (2.2-4.0); Glomerular Filtration Rate >60 (60-); Glucose, Blood 113 mg/dL (70-99); Potassium, Blood 3.8 mmol/L (3.5-5.5); Sodium, Blood 145 mmol/L (136-145)
[2021-05-11 14:30] LABS: International Normalized Ratio 1.79; Prothrombin Time Results 18.7 Sec (9.7-11.5)
[2021-05-11 16:29] LABS: Troponin I 0.034 ng/mL (0.000-0.040)
== END | disposition home or self-care (01) ==
LOC: LAB SHORT 13:50 → LAB 13:50
PROVIDERS: Physician Assistant
DX: Z79.01 Long term (current) use of anticoagulants (principal); Z51.81 Encounter for therapeutic drug level monitoring; R06.00 Dyspnea, unspecified
CPT/HCPCS: 80053; 83880; 84484; 85025; 85379; 85610

== ENCOUNTER 2021-05-30 16:34 | Emergency (ER) | payer OTHER ==
[~2021-05-30] VITALS: Ht 175.3 cm; Wt 117.9 kg
[2021-05-30 17:09] LABS: BASOPHILS ABSOLUTE AUTO 0.07 K/mm3 (0.00-0.23); BASOPHILS PERCENT AUTO 1 % (0-2); EOSINOPHILS ABSOLUTE AUTO 0.27 K/mm3 (0.00-0.68); EOSINOPHILS PERCENT AUTO 3 % (0-6); Hematocrit 37.3 % (33.0-51.0); Hemoglobin 11.9 g/dL (11.5-16.0); IMMATURE GRAN ABSOLUTE AUTO 0.04 K/mm3 (0.00-0.10); IMMATURE GRAN PERCENT AUTO 0 % (0-1); LYMPHOCYTES PERCENT AUTO 28 % (21-46); MONOCYTES ABSOLUTE AUTO 0.82 K/mm3 (0.16-1.47); MONOCYTES PERCENT AUTO 7 % (4-13); Mean Corpuscular HGB 29.7 pg (26.0-34.0); Mean Corpuscular HGB Conc 31.9 g/dL (31.5-36.5); Mean Corpuscular Volume 93 fL (80-100); Mean Platelet Volume 10.8 fL (9.1-12.4); NEUTROPHILS ABSOLUTE AUTO 6.72 K/mm3 (1.96-9.15); NEUTROPHILS PERCENT AUTO 61 % (41-73); Platelet Count 286 K/mm3 (150-400); RDW Coefficient Variation 14.6 % (11.7-14.2); RDW Standard Deviation 49.7 fL (35.1-46.3); Red Blood Cell Count 4.01 M/mm3 (3.80-5.20); White Blood Cell Count 11.02 K/mm3 (4.00-11.30)
[2021-05-30 17:31] LABS: Troponin I <0.015 ng/mL (0.000-0.040)
[2021-05-30 17:35] LABS: Alanine Aminotransfer (ALT/SGP 20 U/L (12-78); Albumin, Blood 3.2 g/dL (3.4-5.0); Albumin/Globulin Ratio 0.8 (0.8-1.8); Alk Phos 114 U/L (50-136); Anion Gap 4 mmol/L (6-16); Aspartate Aminotrans (AST/SGOT 12 U/L (12-37); Bilirubin, Total 0.7 mg/dL (0.1-1.0); Blood Urea Nitrogen 16 mg/dL (8-24); Bun/Creatinine Ratio 24.4 (12.0-20.0); CO2, Blood 29 mmol/L (21-32); Calcium, Blood 9.2 mg/dL (8.5-10.1); Chloride, Blood 110 mmol/L (98-108); Creatinine, Blood 0.66 mg/dL (0.40-1.00); Glomerular Filtration Rate >60 (60-); Glucose, Blood 110 mg/dL (70-99); Potassium, Blood 3.8 mmol/L (3.5-5.5); Sodium, Blood 143 mmol/L (136-145); Total Protein, Blood 7.2 g/dL (6.4-8.2)
== END 2021-05-30 21:10 | disposition home or self-care (01) ==
LOC: ER 16:34
PROVIDERS: Emergency Medicine
DX: R00.2 Palpitations (principal); I48.91 Unspecified atrial fibrillation; E11.40 Type 2 diabetes mellitus with diabetic neuropathy, unspecified; J44.9 Chronic obstructive pulmonary disease, unspecified; K21.9 Gastro-esophageal reflux disease without esophagitis; E78.5 Hyperlipidemia, unspecified; I11.0 Hypertensive heart disease with heart failure; I50.9 Heart failure, unspecified; Z86.73 Personal history of transient ischemic attack (TIA), and cerebral infarction without residual deficits; F17.210 Nicotine dependence, cigarettes, uncomplicated; Z91.048 Other nonmedicinal substance allergy status; Z88.8 Allergy status to other drugs, medicaments and biological substances; Z91.041 Radiographic dye allergy status; Z79.4 Long term (current) use of insulin; Z79.899 Other long term (current) drug therapy; Z79.01 Long term (current) use of anticoagulants
CPT/HCPCS: 71045; 80053; 83880; 84484; 85025; 93005; 93010; 96365; 96375; 99285-25; J3475; J3480

== ENCOUNTER → 2021-08-08 | Outpatient (CLI) | payer OTHER | LOC: LAB SHORT 08:55 → LAB 08:55 | DX: R30.9 Painful micturition, unspecified (principal) | CPT/HCPCS: 87077; 87086; 87186 ==

== ENCOUNTER 2021-09-01 09:03 | Emergency (ER) | payer OTHER ==
[~2021-09-01] VITALS: Ht 175.3 cm; Wt 122.5 kg
[2021-09-01 09:41] LABS: International Normalized Ratio 2.58; Prothrombin Time Results 25.5 Sec (9.7-11.5)
[2021-09-01] MEDS ORDERED: Norco 5-325 Ta1 EACH PO (10:21)
== END 2021-09-01 10:51 | disposition home or self-care (01) ==
LOC: ER 09:03
PROVIDERS: Emergency Medicine
DX: S06.9X1A Unspecified intracranial injury with loss of consciousness of 30 minutes or less, initial encounter (principal); T14.8XXA Other injury of unspecified body region, initial encounter; M25.551 Pain in right hip; M25.511 Pain in right shoulder; E11.9 Type 2 diabetes mellitus without complications; J44.9 Chronic obstructive pulmonary disease, unspecified; I48.91 Unspecified atrial fibrillation; K21.9 Gastro-esophageal reflux disease without esophagitis; E78.5 Hyperlipidemia, unspecified; I11.0 Hypertensive heart disease with heart failure; I50.9 Heart failure, unspecified; Z86.73 Personal history of transient ischemic attack (TIA), and cerebral infarction without residual deficits; F17.210 Nicotine dependence, cigarettes, uncomplicated; Z91.048 Other nonmedicinal substance allergy status; Z88.8 Allergy status to other drugs, medicaments and biological substances; Z79.84 Long term (current) use of oral hypoglycemic drugs; Z79.4 Long term (current) use of insulin; Z79.899 Other long term (current) drug therapy; Z79.01 Long term (current) use of anticoagulants; Z79.52 Long term (current) use of systemic steroids; V89.2XXA Person injured in unspecified motor-vehicle accident, traffic, initial encounter
CPT/HCPCS: 36415; 70450; 71250; 72125; 72170; 73060; 73590; 85610; 96374; 96375; 99284-25; J2270; J2405

== ENCOUNTER 2021-10-01 21:56 | Inpatient (IN) | payer OTHER ==
[~2021-10-01] VITALS: Ht 175.3 cm; Wt 129.7 kg
[~2021-10-01 21:56] MED LIST changes: -ACET500 PO; -ALOGLIPTIN25 M1 PO; -ASPI81CH PO; -Carvedilol12.5 MG PO; -METF500C PO; -NOVOLOG FL100 UNIT/3 SC; -WARF10 PO
[2021-10-01 22:18] LABS: BASOPHILS ABSOLUTE AUTO 0.08 K/mm3 (0.00-0.23); BASOPHILS PERCENT AUTO 1 % (0-2); EOSINOPHILS ABSOLUTE AUTO 0.19 K/mm3 (0.00-0.68); EOSINOPHILS PERCENT AUTO 2 % (0-6); Hematocrit 33.7 % (33.0-51.0); Hemoglobin 10.8 g/dL (11.5-16.0); IMMATURE GRAN ABSOLUTE AUTO 0.03 K/mm3 (0.00-0.10); IMMATURE GRAN PERCENT AUTO 0 % (0-1); LYMPHOCYTES ABSOLUTE AUTO 1.84 K/mm3 (0.84-5.20); LYMPHOCYTES PERCENT AUTO 23 % (21-46); MONOCYTES ABSOLUTE AUTO 0.82 K/mm3 (0.16-1.47); MONOCYTES PERCENT AUTO 10 % (4-13); Mean Corpuscular HGB 29.4 pg (26.0-34.0); Mean Corpuscular Volume 92 fL (80-100); Mean Platelet Volume 11.2 fL (9.1-12.4); NEUTROPHILS ABSOLUTE AUTO 4.89 K/mm3 (1.96-9.15); NEUTROPHILS PERCENT AUTO 62 % (41-73); Platelet Count 253 K/mm3 (150-400); RDW Standard Deviation 50.5 fL (35.1-46.3); Red Blood Cell Count 3.67 M/mm3 (3.80-5.20); White Blood Cell Count 7.85 K/mm3 (4.00-11.30)
[2021-10-01 22:42] LABS: Alanine Aminotransfer (ALT/SGP 18 U/L (12-78); Albumin/Globulin Ratio 0.9 (0.8-1.8); Alk Phos 111 U/L (50-136); Anion Gap 5 mmol/L (6-16); Aspartate Aminotrans (AST/SGOT 14 U/L (12-37); Bilirubin, Total 0.4 mg/dL (0.1-1.0); Blood Urea Nitrogen 35 mg/dL (8-24); Bun/Creatinine Ratio 29.9 (12.0-20.0); CO2, Blood 26 mmol/L (21-32); Calcium, Blood 8.5 mg/dL (8.5-10.1); Chloride, Blood 110 mmol/L (98-108); Creatinine, Blood 1.17 mg/dL (0.40-1.00); Ethanol (Alcohol), Blood, Med <3 mg/dL; Globulin, Blood 3.5 g/dL (2.2-4.0); Glomerular Filtration Rate 47 (60-); Glucose, Blood 189 mg/dL (70-99); Magnesium, Blood 2.1 mg/dL (1.6-2.4); Potassium, Blood 4.1 mmol/L (3.5-5.5); Sodium, Blood 141 mmol/L (136-145); Total Protein, Blood 6.5 g/dL (6.4-8.2); Troponin I <0.015 ng/mL (0.000-0.040)
[2021-10-01 22:48] LABS: International Normalized Ratio 2.87; Prothrombin Time Results 28.1 Sec (9.7-11.5)
[2021-10-01 22:50] LABS: PO2 Arterial 58.1 mmHg (80-100); pH Blood Arterial 7.38 (7.35-7.45)
[2021-10-01 23:15] LABS: Influenza A, PCR NEGATIVE (NEGATIVE); Influenza B, PCR NEGATIVE (NEGATIVE); Resp Syncytial Virus, PCR NEGATIVE (NEGATIVE)
[2021-10-01 23:26] LABS: SARS-Cov-2 (COVID-19) PCR, MMC POSITIVE (NEGATIVE)
[2021-10-02 00:19] LABS: Source, Urine Clean Catch
[2021-10-02 00:23] LABS: Bilirubin, Urine Neg (Neg); Blood, Urine 4+ (Neg); Glucose Qualitative, Urine Neg (Neg); Ketones, Urine 1+ (Neg); Leukocyte Esterase, Urine 3+ (Neg); Nitrite, Urine Neg (Neg); Protein, Urine 3+ (Neg); Specific Gravity, Urine 1.025 (1.003-1.022); Urobilinogen, Urine 1+ (Normal)
[2021-10-02 00:28] LABS: Appearance, Urine Cloudy (Clear); Color, Urine Yellow (P-Yellow)
[2021-10-02 00:29] LABS: Bacteria Many /hpf; Red Blood Cells, Urine Rare /hpf (0-2); Renal Epithelial Few /hpf (0-Rare); Squamous Epithelial Cells Rare /hpf (Few); White Blood Cells, Urine TNTC /hpf (0-5)
[2021-10-02 00:35] LABS: U Amphetamine Screen Not Detected; U Methamphetamine Screen Not Detected
[2021-10-02 00:36] LABS: U Barbituate Screen Not Detected; U Benzodiazapine Screen Not Detected; U Buprenorphine Screen Not Detected; U Cannabinoids Screen Not Detected; U Cocaine Screen Not Detected; U Methadone Screen Not Detected; U Opiates Screen Not Detected; U Oxycodone Screen Not Detected; U Phencyclidine Screen Not Detected; U Propoxyphene Screen Not Detected
[2021-10-02] MEDS ORDERED: FUROSEMIDE40 MG PO (01:23)
[2021-10-02] MEDS ORDERED: KLOR-CON 1010 ME1 PO (01:26)
[2021-10-02] MEDS ORDERED: MONDOXYNE NL100 MG PO (01:26)
[2021-10-02] MEDS ORDERED: HYDROCO (01:27)
[2021-10-02] MEDS ORDERED: INSULIN GL100 UNIT/2 SC (01:27)
[2021-10-02] MEDS ORDERED: APAP (01:27)
[2021-10-02] MEDS ORDERED: GABA300 PO (01:43)
[2021-10-02] MEDS ORDERED: INSULANPEN SC (01:43)
[2021-10-02] MEDS ORDERED: MECL25 PO (01:43)
[2021-10-02] MEDS ORDERED: Amitriptyline H10 MG PO (01:43)
[2021-10-02] MEDS ORDERED: DOCU100 PO (01:43)
[2021-10-02] MEDS ORDERED: Carvedilol12.5 MG PO (01:43)
[2021-10-02] MEDS ORDERED: ROPI.25 PO (01:43)
[2021-10-02] MEDS ORDERED: GEMF600 PO (01:43)
[2021-10-02] MEDS ORDERED: METF500C PO (01:43)
[2021-10-02] MEDS ORDERED: ALOGLIPTIN25 M1 PO (01:43)
[2021-10-02] MEDS ORDERED: Prinivil10 MG PO (01:43)
[2021-10-02] MEDS ORDERED: ASPI81CH PO (01:43)
[2021-10-02] MEDS ORDERED: NOVOLOG FL100 UNIT/3 SC (01:43)
[2021-10-02] MEDS ORDERED: WARF10 PO (01:43)
[2021-10-02] MEDS ORDERED: WARF5 PO (01:43)
[2021-10-02] MEDS ORDERED: DULO60 PO (01:43)
[2021-10-02] MEDS ORDERED: ACET500 PO (01:43)
[2021-10-02] MEDS ORDERED: Norco 5-325 Ta1 EACH PO (02:11)
[2021-10-02] MEDS ORDERED: Monodox100 MG PO (02:12)
--- NOTE | 2021-10-02 04:42 | NUR ---
Received patient somnolent, able to answer some question. Came in with low BP. Vital Improve . after receiving 3 Liters of N/S per ER nurse report. Patient is still receiving fluid N/S @ 125ml/HR. Breathing at room air, unlabored. We are monitoring patient closely and report any acute changes as it occurs.
[2021-10-02 05:02] LABS: BASOPHILS ABSOLUTE AUTO 0.04 K/mm3 (0.00-0.23); BASOPHILS PERCENT AUTO 1 % (0-2); EOSINOPHILS ABSOLUTE AUTO 0.04 K/mm3 (0.00-0.68); EOSINOPHILS PERCENT AUTO 1 % (0-6); Hematocrit 31.8 % (33.0-51.0); IMMATURE GRAN ABSOLUTE AUTO 0.02 K/mm3 (0.00-0.10); IMMATURE GRAN PERCENT AUTO 0 % (0-1); LYMPHOCYTES ABSOLUTE AUTO 2.13 K/mm3 (0.84-5.20); LYMPHOCYTES PERCENT AUTO 29 % (21-46); MONOCYTES ABSOLUTE AUTO 0.78 K/mm3 (0.16-1.47); MONOCYTES PERCENT AUTO 11 % (4-13); Mean Corpuscular HGB 29.9 pg (26.0-34.0); Mean Corpuscular HGB Conc 31.4 g/dL (31.5-36.5); Mean Corpuscular Volume 95 fL (80-100); Mean Platelet Volume 10.8 fL (9.1-12.4); NEUTROPHILS ABSOLUTE AUTO 4.33 K/mm3 (1.96-9.15); NEUTROPHILS PERCENT AUTO 59 % (41-73); Platelet Count 223 K/mm3 (150-400); RDW Coefficient Variation 15.3 % (11.7-14.2); RDW Standard Deviation 53.4 fL (35.1-46.3); Red Blood Cell Count 3.35 M/mm3 (3.80-5.20); White Blood Cell Count 7.34 K/mm3 (4.00-11.30)
[2021-10-02 05:37] LABS: Bun/Creatinine Ratio 31.6 (12.0-20.0); Calcium, Blood 8.1 mg/dL (8.5-10.1); Creatinine, Blood 1.14 mg/dL (0.40-1.00)
[2021-10-02 10:14] LABS: International Normalized Ratio 3.76
[2021-10-02 10:40] LABS: Prothrombin Time Results 36.2 Sec (9.7-11.5)
--- NOTE | 2021-10-02 11:48 | NUR ---
RN reckrishna handoff of patient care from ROSE MARIE Hair at 0645 Patient was in bed asleep. She appeared in no distress
--- NOTE | 2021-10-02 14:29 | NUR ---
I went to visit patient in her [facility] room 334. Patient was calm and pleasant. She states she lives with her , her son and his family in a single story home with one step to the enterance. Patient mainly uses a cane or 4 wheeled walker at home. She states her 4 wheeled walker is currently broken. She does not have preference on home health agency, but the preference for SNF would be [facility] if recommended. She drives but, her or son can help with discharge transportation Marquis (Spouse [phone]). Eula Burton ([phone]) - daughter. Luz Marina states that her , Marquis, helps with her medication management. Her preferred pharmacies are [facility] or [facility].
--- NOTE | 2021-10-02 19:17 | NUR ---
Patient was alert and orient, she spent most of the shift in the bed resting. She complained of chills and recvd 2 warm blankets. Patient did agree to take a shower after first refusing. Patient med rec was complete by RN and provider was informed. She had no complaints of pain. Cont to monitor
--- NOTE | 2021-10-03 04:24 | NUR ---
SHIFT SUMMARY ADMITTED FOR COVID+. FULL CODE. ENHANCED ISOLATION PRECAUTIONS IN PLACE. SHE LIVES WITH HER SPOUSE. IV ANTIB RX ARE SCHEDULED. SHE IS ON WARFARIN. HX OF STROKE. REQUIP WAS STARTED YESTERDAY FOR RESTLESS LEGS. SHE DID STRUGGLE WITH DISCOMFORT FROM THAT THIS SHIFT. SHE IS A&O X4, INDEPENDENT TO THE BATHROOM. SHE IS ON RA.
[2021-10-03 04:33] LABS: BASOPHILS ABSOLUTE AUTO 0.07 K/mm3 (0.00-0.23); BASOPHILS PERCENT AUTO 1 % (0-2); EOSINOPHILS ABSOLUTE AUTO 0.33 K/mm3 (0.00-0.68); EOSINOPHILS PERCENT AUTO 4 % (0-6); Hematocrit 36.7 % (33.0-51.0); Hemoglobin 11.4 g/dL (11.5-16.0); IMMATURE GRAN ABSOLUTE AUTO 0.04 K/mm3 (0.00-0.10); IMMATURE GRAN PERCENT AUTO 0 % (0-1); LYMPHOCYTES PERCENT AUTO 20 % (21-46); MONOCYTES ABSOLUTE AUTO 0.66 K/mm3 (0.16-1.47); MONOCYTES PERCENT AUTO 7 % (4-13); Mean Corpuscular HGB 29.1 pg (26.0-34.0); Mean Corpuscular HGB Conc 31.1 g/dL (31.5-36.5); Mean Corpuscular Volume 94 fL (80-100); NEUTROPHILS ABSOLUTE AUTO 6.37 K/mm3 (1.96-9.15); NEUTROPHILS PERCENT AUTO 68 % (41-73); Platelet Count 250 K/mm3 (150-400); RDW Coefficient Variation 15.2 % (11.7-14.2); RDW Standard Deviation 52.3 fL (35.1-46.3); Red Blood Cell Count 3.92 M/mm3 (3.80-5.20); White Blood Cell Count 9.37 K/mm3 (4.00-11.30)
[2021-10-03 04:46] LABS: Anion Gap 5 mmol/L (6-16); Blood Urea Nitrogen 27 mg/dL (8-24); Bun/Creatinine Ratio 37.1 (12.0-20.0); CO2, Blood 24 mmol/L (21-32); Calcium, Blood 8.8 mg/dL (8.5-10.1); Chloride, Blood 111 mmol/L (98-108); Creatinine, Blood 0.73 mg/dL (0.40-1.00); Glomerular Filtration Rate >60 (60-); Glucose, Blood 222 mg/dL (70-99); Potassium, Blood 4.1 mmol/L (3.5-5.5); Sodium, Blood 140 mmol/L (136-145)
[2021-10-03 04:52] LABS: International Normalized Ratio 2.79; Prothrombin Time Results 27.4 Sec (9.7-11.5)
[2021-10-03] MEDS ORDERED: ASCO500 PO (13:59)
[2021-10-03] MEDS ORDERED: ZINC220 PO ×2 (14:00→14:02)
[2021-10-03] MEDS ORDERED: THERA-D2000 UNIT PO (14:00)
[2021-10-03] MEDS ORDERED: AZIT500 PO (14:03)
[2021-10-03] MEDS ORDERED: PRED20 PO (14:04)
[2021-10-03] MEDS ORDERED: Cefpodoxime Pr100 MG PO (14:04)
--- NOTE | 2021-10-03 15:32 | NUR ---
Per chart review with Dr. Ma, patient appropriate for discharge home. Patient scheduled for a hospital tele health follow-up appointment with Dr. Ma next week on Sunday, October 10, 2021 at 11:50 AM. Patient's son, Piero, will be providing discharge transportation home. I also spoke with patient's , Marquis, to let him know I also have ordered a four wheeled walker to be delivered to their home today or tomorrow. Patient aware of walker being ordered as well. She last received a walker on 03/02/2021 and states that it has since broke. Patient aware it may not be covered by insurance ([facility]) since she has received one within the past year. Patient agreeable to discharge plan, denies barriers and feels safe to return home.
--- NOTE | 2021-10-03 16:33 | NUR ---
PT TRANSFERED THE PT WAS TRANSFERED TO [facility] VIA WHEELCHAIR ACCOMPANIED BY [facility]. REPORT CALLED TO RN THERE. THE PT APPEARED TO BE BREATHING EASILY ON RA AT THE TIME OF DC. THE PTS BELONGINGS RELEASED TO THE PATIENT
--- NOTE | 2021-10-03 16:39 | NUR ---
PT DISCHARGED THE PT VERBALIZED UNDERSTANDING OF THE DC INSTRUCTIONS. THE PT WAS GIVEN NORCO 1 TAB FOR PAIN IN HER LEGS JUST PRIOR TO DC. THE PT APPEARED TO BE BREATHING EASILY ON RA AT THE TIME OF DC. THE PTS PRESCRIPTIONS WERE FAXED TO [facility]. THE PT WAS TRANSFERED VIA WHEELCHAIR ACCOMPANIED BY THE NETWORK SUPPORT ANALYST
== END 2021-10-03 14:48 | disposition home or self-care (01) | DRG 871 ==
LOC: ER 21:56 → MEDS 21:57
PROVIDERS: Emergency Medicine; Family Medicine; Internal Medicine; ADMIT Internal Medicine
PROC: 8E0ZXY6 Isolation (ICD-10-PCS; principal; 2021-10-02)
DX: A41.89 Other specified sepsis (principal); U07.1 COVID-19; J12.82 Pneumonia due to coronavirus disease 2019; N39.0 Urinary tract infection, site not specified; N17.9 Acute kidney failure, unspecified; I50.32 Chronic diastolic (congestive) heart failure; A41.51 Sepsis due to Escherichia coli [E. coli]; I95.1 Orthostatic hypotension; E11.42 Type 2 diabetes mellitus with diabetic polyneuropathy; R79.1 Abnormal coagulation profile; I48.91 Unspecified atrial fibrillation; M54.2 Cervicalgia; E78.5 Hyperlipidemia, unspecified; K21.9 Gastro-esophageal reflux disease without esophagitis; E66.01 Morbid (severe) obesity due to excess calories; Z68.39 Body mass index [BMI] 39.0-39.9, adult; M54.50 Low back pain, unspecified; G89.29 Other chronic pain; G25.81 Restless legs syndrome; I11.0 Hypertensive heart disease with heart failure; F17.210 Nicotine dependence, cigarettes, uncomplicated; Z86.73 Personal history of transient ischemic attack (TIA), and cerebral infarction without residual deficits; Z91.041 Radiographic dye allergy status; Z88.5 Allergy status to narcotic agent; Z91.09 Other allergy status, other than to drugs and biological substances; Z88.8 Allergy status to other drugs, medicaments and biological substances; Z79.4 Long term (current) use of insulin; Z79.01 Long term (current) use of anticoagulants; Z79.899 Other long term (current) drug therapy; Z90.49 Acquired absence of other specified parts of digestive tract; Z98.890 Other specified postprocedural states
CPT/HCPCS: 0241U; 36415; 36600; 51701; 51798; 71045; 80048; 80053; 81001; 82140; 82803; 82947; 83735; 83880; 84484; 85025; 85610; 87077; 87086; 87186; 93005; 93010; 96374; 99285-25; A9270; G0378; G0480; J0696; J1815; J2920; J7030

== ENCOUNTER 2021-10-29 11:34 | Inpatient (IN) | payer OTHER ==
[~2021-10-29] VITALS: Ht 175.3 cm; Wt 130.2 kg
[~2021-10-29 11:34] MED LIST changes: +ACET500 PO; +ALOGLIPTIN25 M1 PO; +APAP; +ASCO500 PO; +ASPI81CH PO; +AZIT500 PO; +Carvedilol12.5 MG PO; +Cefpodoxime Pr100 MG PO; +FUROSEMIDE40 MG PO; +HYDROCO; +INSULIN GL100 UNIT/2 SC; +KLOR-CON 1010 ME1 PO; +METF500C PO; +MONDOXYNE NL100 MG PO; +Monodox100 MG PO; +NOVOLOG FL100 UNIT/3 SC; +THERA-D2000 UNIT PO; +WARF10 PO; +ZINC220 PO
[2021-10-29 12:34] LABS: BASOPHILS ABSOLUTE AUTO 0.05 K/mm3 (0.00-0.23); BASOPHILS PERCENT AUTO 0 % (0-2); EOSINOPHILS ABSOLUTE AUTO 0.02 K/mm3 (0.00-0.68); EOSINOPHILS PERCENT AUTO 0 % (0-6); Hematocrit 36.8 % (33.0-51.0); Hemoglobin 11.7 g/dL (11.5-16.0); IMMATURE GRAN ABSOLUTE AUTO 0.09 K/mm3 (0.00-0.10); IMMATURE GRAN PERCENT AUTO 1 % (0-1); LYMPHOCYTES ABSOLUTE AUTO 0.67 K/mm3 (0.84-5.20); LYMPHOCYTES PERCENT AUTO 5 % (21-46); MONOCYTES ABSOLUTE AUTO 0.95 K/mm3 (0.16-1.47); MONOCYTES PERCENT AUTO 7 % (4-13); Mean Corpuscular HGB 29.8 pg (26.0-34.0); Mean Corpuscular HGB Conc 31.8 g/dL (31.5-36.5); Mean Corpuscular Volume 94 fL (80-100); Mean Platelet Volume 12.5 fL (9.1-12.4); NEUTROPHILS PERCENT AUTO 87 % (41-73); Platelet Count 208 K/mm3 (150-400); RDW Coefficient Variation 14.6 % (11.7-14.2); RDW Standard Deviation 50.6 fL (35.1-46.3); Red Blood Cell Count 3.92 M/mm3 (3.80-5.20); White Blood Cell Count 13.48 K/mm3 (4.00-11.30)
[2021-10-29 12:48] LABS: Alanine Aminotransfer (ALT/SGP 21 U/L (12-78); Albumin, Blood 2.7 g/dL (3.4-5.0); Albumin/Globulin Ratio 0.7 (0.8-1.8); Alk Phos 106 U/L (50-136); Anion Gap 7 mmol/L (6-16); Aspartate Aminotrans (AST/SGOT 18 U/L (12-37); Blood Urea Nitrogen 22 mg/dL (8-24); CO2, Blood 25 mmol/L (21-32); Calcium, Blood 8.5 mg/dL (8.5-10.1); Chloride, Blood 101 mmol/L (98-108); Creatinine, Blood 0.92 mg/dL (0.40-1.00); Glomerular Filtration Rate >60 (60-); Glucose, Blood 357 mg/dL (70-99); Potassium, Blood 4.3 mmol/L (3.5-5.5); Sodium, Blood 133 mmol/L (136-145); Total Protein, Blood 6.7 g/dL (6.4-8.2)
[2021-10-29 13:00] LABS: Source, Urine Clean Catch
[2021-10-29 13:01] LABS: International Normalized Ratio 1.25; Prothrombin Time Results 12.9 Sec (9.7-11.5)
[2021-10-29 13:16] LABS: Bilirubin, Urine Neg (Neg); Blood, Urine 4+ (Neg); Glucose Qualitative, Urine 4+ (Neg); Ketones, Urine 3+ (Neg); Leukocyte Esterase, Urine 3+ (Neg); Nitrite, Urine Neg (Neg); Protein, Urine 3+ (Neg); Specific Gravity, Urine 1.025 (1.003-1.022); Urobilinogen, Urine NORM (Normal)
[2021-10-29 13:29] LABS: Appearance, Urine Hazy (Clear); Color, Urine Pale Yellow (P-Yellow)
[2021-10-29 13:31] LABS: Bacteria Many /hpf; Red Blood Cells, Urine 25-50 /hpf (0-2); Squamous Epithelial Cells Rare /hpf (Few)
[2021-10-29 13:32] LABS: Amorphous Light (0-Heavy); Mucus Light (0-Heavy)
[2021-10-29 18:23] LABS: Source, Urine Foley catheter
[2021-10-29 18:40] LABS: Bilirubin, Urine Neg (Neg); Blood, Urine 4+ (Neg); Glucose Qualitative, Urine 4+ (Neg); Ketones, Urine 3+ (Neg); Leukocyte Esterase, Urine 2+ (Neg); Nitrite, Urine Pos (Neg); Protein, Urine 3+ (Neg); Specific Gravity, Urine 1.015 (1.003-1.022); Urobilinogen, Urine NORM (Normal)
[2021-10-29 19:15] LABS: Appearance, Urine Hazy (Clear); Color, Urine Pale Yellow (P-Yellow)
[2021-10-29 19:17] LABS: Bacteria Few /hpf; Mucus Light (0-Heavy); Squamous Epithelial Cells Rare /hpf (Few)
--- NOTE | 2021-10-29 19:25 | NUR ---
END OF HSIFT SUMMARY: PATIENT ARRIVED FROM THE ED WITH A PULSE OF 175 WITH CARDIZEM AT 5 THAT HAS OBNLY BEEN RUNNING FOR APPROX 15MINS. PATIENT HAD A POSITIONAL IV TO THE [facility], AND Naima PARRY RN, PLACED AN 18IN THE DIEUDONNE. I PLACED A LOYOLA TITRATED CARDIZEM FOLOW PROTOCOL TO 15, AND DECREASED TO 10 AT SHIFT CHAGNE. DIGOXIN METOPROLOL AND PAIN MEDS GIVEN, DUE FOR WARFARIN ONE TIME DOSE. HAD CHEST PAIN ON ARRIVAL, WITH TITRATION OF CARDIZEM AND PULSE RATE DECLINING SHE NO LONGER HAS ANY CHEST PAIN AND PULSE RATE STILL AFIB BUT LOW 120'S. PATIENT CBG 303 WITH DINNER NO SS INSULIN, INFORMED EMAIL PRODUCER RN. WILL CONTINUE TO MONITOR UNTIL SHIFT CHANGE
[2021-10-30 04:24] LABS: BASOPHILS ABSOLUTE AUTO 0.06 K/mm3 (0.00-0.23); BASOPHILS PERCENT AUTO 1 % (0-2); EOSINOPHILS ABSOLUTE AUTO 0.01 K/mm3 (0.00-0.68); EOSINOPHILS PERCENT AUTO 0 % (0-6); Hematocrit 34.8 % (33.0-51.0); Hemoglobin 11.3 g/dL (11.5-16.0); IMMATURE GRAN ABSOLUTE AUTO 0.07 K/mm3 (0.00-0.10); IMMATURE GRAN PERCENT AUTO 1 % (0-1); LYMPHOCYTES ABSOLUTE AUTO 0.53 K/mm3 (0.84-5.20); LYMPHOCYTES PERCENT AUTO 4 % (21-46); MONOCYTES ABSOLUTE AUTO 0.71 K/mm3 (0.16-1.47); MONOCYTES PERCENT AUTO 5 % (4-13); Mean Corpuscular HGB 30.1 pg (26.0-34.0); Mean Corpuscular HGB Conc 32.5 g/dL (31.5-36.5); Mean Corpuscular Volume 93 fL (80-100); Mean Platelet Volume 11.9 fL (9.1-12.4); NEUTROPHILS ABSOLUTE AUTO 11.82 K/mm3 (1.96-9.15); NEUTROPHILS PERCENT AUTO 90 % (41-73); Platelet Count 171 K/mm3 (150-400); RDW Coefficient Variation 14.5 % (11.7-14.2); RDW Standard Deviation 49.3 fL (35.1-46.3); Red Blood Cell Count 3.75 M/mm3 (3.80-5.20)
[2021-10-30 04:50] LABS: Albumin, Blood 2.4 g/dL (3.4-5.0); Albumin/Globulin Ratio 0.6 (0.8-1.8); Bilirubin, Total 0.7 mg/dL (0.1-1.0); Bun/Creatinine Ratio 25.9 (12.0-20.0); Creatinine, Blood 1.12 mg/dL (0.40-1.00); Globulin, Blood 3.9 g/dL (2.2-4.0); International Normalized Ratio 1.3; Magnesium, Blood 2.2 mg/dL (1.6-2.4); Potassium, Blood 4.7 mmol/L (3.5-5.5); Prothrombin Time Results 13.4 Sec (9.7-11.5); Total Protein, Blood 6.3 g/dL (6.4-8.2)
--- NOTE | 2021-10-30 07:34 | NUR ---
END OF SHIFT SUMMARY ALERT AND ORIENTED X4. PT HAD DIFFICULTIES SWALLOWING PILLS, SHE ASPIRATED ON ON FLUID, MD NOTIFIED PER ORDER NPO, SPEECH EVAL. DENIES CHEST PAIN/NAUSEA/VOMITTING. PT HAD LOW GRADE FEVER PRN TYLENOL GIVEN ORDERED. Diltiazem drip stopped at 1am HR 90s ,infusion restarted at 4:30 am HR 120s, BP ELEVATED. AT 6:30 INFUSION STOPPED FOR LOW BP, CHARGE NURSE NOTIFIED. CALL LIGHT WITHIN REACH AND SIDE RAIL UP X2
--- NOTE | 2021-10-30 17:50 | NUR ---
SHIFT SUMMARY ASSUMED CARE OF PT AT APPROX 0700. PT A&Ox3; UNSURE OF DATE. PT RESTING IN BED DURING SHIFT. MOVES IND IN BED, UP ON SIDE OF BED FOR MEALS. SBA TO BSC. PT REPORTS PAIN TO COCCYX THIS AM, REPOSITIONED FOR COMFORT. PT REPORTS PAIN IN LOWER BACK AND HIP THIS AFTERNOON, MEDCIATED PER EMAR. PT HAVING JERKING MOVEMENTS TO UPPER AND LOWER EXTREMITIES; MEDCIATED WITH ONCE TIME DOSE OF REQUIP PER ORDER. THIS AM PER TELE PT HR <110 BPM, BP SOFT AND CARDIZEM OFF AT SHIFT CHANGES; HELP METOPROLOL DUE TO BP; BP AND HR TRENDING UP THIS AFTERNOON, NEW ORDER FOR ONE TIME DOSE OF METOPROLOL; BP STABLE HR TRENDING DOWN. LS CLEAR T/O DIM BASES; SPO2 >90% T/O SHIFT, TITRATED TO RA FROM 1L O2. PT BT HYPOACTIVE, PT HAD BM THIS SHIFT, REPORTS FEELING CONSTIPATED, WILL MEDICATE PER EMAR. PT HAS RED AREA TO PANUS, NOTIFIED DR ZHANG NEW ORDER ENTERED. VSS. NO OTHER ACUTE CHANGES NOTED. WILL CONTINUE TO MONITOR UNITL REPORT GIVEN TO ONCOMING RN.
[2021-10-31 04:03] LABS: Hematocrit 32.6 % (33.0-51.0); Hemoglobin 10.5 g/dL (11.5-16.0); Mean Corpuscular HGB 29.8 pg (26.0-34.0); Mean Corpuscular HGB Conc 32.2 g/dL (31.5-36.5); Mean Corpuscular Volume 93 fL (80-100); NRBC ABSOLUTE 0.03 K/mm3 (0.00-0.02); NRBC Auto 0.3 /100 WBC (0.0-0.2); Platelet Count 145 K/mm3 (150-400); RDW Coefficient Variation 14.4 % (11.7-14.2); RDW Standard Deviation 48.9 fL (35.1-46.3); Red Blood Cell Count 3.52 M/mm3 (3.80-5.20); White Blood Cell Count 9.49 K/mm3 (4.00-11.30)
[2021-10-31 04:17] LABS: International Normalized Ratio 1.79; Prothrombin Time Results 18.1 Sec (9.7-11.5)
[2021-10-31 04:56] LABS: Albumin, Blood 2.1 g/dL (3.4-5.0); Anion Gap 6 mmol/L (6-16); Blood Urea Nitrogen 43 mg/dL (8-24); Bun/Creatinine Ratio 35.2 (12.0-20.0); CO2, Blood 26 mmol/L (21-32); Chloride, Blood 102 mmol/L (98-108); Creatinine, Blood 1.22 mg/dL (0.40-1.00); Glomerular Filtration Rate 45 (60-); Glucose, Blood 357 mg/dL (70-99); Phosphorus, Blood 2.4 mg/dL (2.5-4.9); Potassium, Blood 4.3 mmol/L (3.5-5.5); Sodium, Blood 134 mmol/L (136-145)
--- NOTE | 2021-10-31 07:34 | NUR ---
ALERT AND ORIENTED X 3, PT DESAT ON ROOM AIR WHILE SLEEPING SUSTAIN IN HIGH 80s, PLACE ON 1L OXYGEN. COMPLAINT OF LEFT HIP PAIN, PAIN MED ADMINISTERED PER eMAR. PT HAD A LOW GRADE TEMPERATURE THIS AM, TYLENOL GIVENM , DAY NURSE NOTIFIED.
--- NOTE | 2021-10-31 11:42 | NUR ---
Dr. Lujan notified of pt's blood sugar this afternoon. No new orders at this time.
--- NOTE | 2021-10-31 17:54 | NUR ---
SHIFT SUMMARY:THROUGHOUT MY SHIFT PT HAS BEEN SLOW TO AROUSE AFTER SLEEPING BUT A&OX3 AFTER WAKING UP. PT ABLE TO MAINTAIN O2 WITHIN NORMAL LIMITS ON RA. PT SITTING UP IN CHAIR THIS A.M. SPEACH THERAPY INTO EVALUATE PT, ADVANCED DIET. AFTERNOON BLOOD SUGAR ABOVE 350, DR. ZHANG NOTIFIED. SLIDING SCALE INSULIN ADMINISTERED. BLOOD SUGAR ABLE TO BE TREATED WITH SLIDING SCALE INSULIN, SEE CHART FOR RESULTS. PT COMPLAINING OF CONSTPIATION, STOOL SOFTENERS ADMINISTERED. TELEMETRY READS HEART RHYTHM IS UNCHANCHANGED DURING SHIFT.
[2021-11-01 03:40] LABS: International Normalized Ratio 2.7; Prothrombin Time Results 26.6 Sec (9.7-11.5)
--- NOTE | 2021-11-01 06:36 | NUR ---
PT IS MORE ALERT AND ORIENTED COMPARE TO PREVIOUS NIGHT. PT DENIES N/V, COMPLAINT IS CONTIPATION MD CALLED , MEDS GIVEN PER eMAR , PT HAD SMALL FORM STOOL. LOYOLA IN PLACE WITH ADEQUATE URINE OUTPUT. ON TELE AFIB, CALL LIGHT WITHIN REACH AND SIDE SIDERAIL UP X2
--- NOTE | 2021-11-01 10:56 | NUR ---
REPORT CALLED TO CHERELLE TROTTER ON MEDICAL FLOOR BY DELFINA TROTTER FROM [facility].
--- NOTE | 2021-11-01 18:57 | NUR ---
Patient recieved from PCU. Patient is A&Ox4. Denies having any pain and has no complaints. HR is 98-afib per telephoto engineer. She is resting comfortably. Call light put within reach and bed in lowest position.
[2021-11-02 05:40] LABS: Prothrombin Time Results 56.8 Sec (9.7-11.5)
[2021-11-02 06:15] LABS: International Normalized Ratio 6.09
--- NOTE | 2021-11-02 07:26 | NUR ---
PAIENT COMPLAINED OF RESTLESS LEG SYNDROM AND PAIN IN LOWER EXTREMITIES. NORCO GIVEN TO PATIENT X2. NO RELIEF. CRITICAL LAB VALUE CALLED TO INR 6.07. STATED TO HOLD WARFARIN MANAGED BY THE PHARMACY NO OTHER ORDERS REPORTED.
--- NOTE | 2021-11-02 11:27 | NUR ---
Pt. was soundly resting and did not respond to my calling her name. I will follow back later in the day.
[2021-11-02] MEDS ORDERED: DIGOX125 MC1 PO (12:39)
[2021-11-02] MEDS ORDERED: METO50ER PO (12:40)
[2021-11-02] MEDS ORDERED: CEPHALEXIN125 MG/5 M PO (12:41)
--- NOTE | 2021-11-02 14:14 | NUR ---
DISCHARGE SUMMARY PATIENT DISCHARGED TO HOME. PATIENT LEFT ROOM VIA WHEELCHAIR @1315 W/ CRITICAL POWER INSTALL TECHNICIAN [facility]. IV D/C'D, BELONGINGS RETURNED, ALL DISHCARGE INSTRUCTIONS DISCUSSED. ALL QUESTIONS ANSWERED. PATIENT EDUCATED ON MEDICATIONS AND INSTRUCTED TO ESTABLISH PRIMARY CARE DUE TO CALLING [facility] TO MAKE APPOINTMENT AND WAS TOLD PATIENT WAS LONGER A PATIENT AT THAT FACILITY AND COULD NOT MAKE AN APPOINTMENT. PATIENT AGREES.
== END 2021-11-02 14:08 | disposition home health service (06) | DRG 872 ==
LOC: ER 11:34 → PCU 14:01 → MEDS 11-01 11:04 → ENPENDDIS 11-02 11:24 → MEDS 11-02 14:08
PROVIDERS: Internal Medicine; Pharmacist; Physician Assistant; ADMIT Hospitalist
DX: A41.51 Sepsis due to Escherichia coli [E. coli] (principal); N39.0 Urinary tract infection, site not specified; N17.9 Acute kidney failure, unspecified; I50.32 Chronic diastolic (congestive) heart failure; Z68.41 Body mass index [BMI] 40.0-44.9, adult; I48.91 Unspecified atrial fibrillation; I67.9 Cerebrovascular disease, unspecified; I11.0 Hypertensive heart disease with heart failure; J44.9 Chronic obstructive pulmonary disease, unspecified; Z86.16 Personal history of COVID-19; G25.81 Restless legs syndrome; K21.9 Gastro-esophageal reflux disease without esophagitis; E78.5 Hyperlipidemia, unspecified; E66.9 Obesity, unspecified; E11.42 Type 2 diabetes mellitus with diabetic polyneuropathy; F17.210 Nicotine dependence, cigarettes, uncomplicated; Z28.21 Immunization not carried out because of patient refusal; G89.29 Other chronic pain; Z79.01 Long term (current) use of anticoagulants; Z79.82 Long term (current) use of aspirin; Z79.84 Long term (current) use of oral hypoglycemic drugs; Z79.4 Long term (current) use of insulin; Z88.6 Allergy status to analgesic agent; Z91.041 Radiographic dye allergy status; Z90.49 Acquired absence of other specified parts of digestive tract; Z87.820 Personal history of traumatic brain injury; Z98.890 Other specified postprocedural states
CPT/HCPCS: 36415; 71045; 80053; 80069; 81001; 82947; 83605; 83690; 83735; 84100; 85025; 85027; 85610; 85730; 87040; 87077; 87086; 87186; 92526; 92610; 93005; 93010; 96361; 96374; 96375; 96376; 99285-25; A9270; C1751; J0696; J1160; J1650; J1815; J2405; J2550; J7030

== ENCOUNTER → 2021-11-10 | Outpatient (CLI) | payer OTHER ==
[~2021-11-10] MED LIST changes: +CEPHALEXIN125 MG/5 M PO; +DIGOX125 MC1 PO
[2021-11-10 14:27] LABS: BASOPHILS ABSOLUTE AUTO 0.08 K/mm3 (0.00-0.23); BASOPHILS PERCENT AUTO 1 % (0-2); EOSINOPHILS ABSOLUTE AUTO 0.25 K/mm3 (0.00-0.68); EOSINOPHILS PERCENT AUTO 2 % (0-6); Hematocrit 34.5 % (33.0-51.0); Hemoglobin 10.7 g/dL (11.5-16.0); IMMATURE GRAN ABSOLUTE AUTO 0.08 K/mm3 (0.00-0.10); IMMATURE GRAN PERCENT AUTO 1 % (0-1); LYMPHOCYTES PERCENT AUTO 20 % (21-46); MONOCYTES ABSOLUTE AUTO 0.73 K/mm3 (0.16-1.47); MONOCYTES PERCENT AUTO 7 % (4-13); Mean Corpuscular HGB 29.3 pg (26.0-34.0); Mean Corpuscular Volume 95 fL (80-100); Mean Platelet Volume 10.6 fL (9.1-12.4); NEUTROPHILS ABSOLUTE AUTO 7.08 K/mm3 (1.96-9.15); NEUTROPHILS PERCENT AUTO 69 % (41-73); Platelet Count 436 K/mm3 (150-400); RDW Coefficient Variation 15.9 % (11.7-14.2); RDW Standard Deviation 55.5 fL (35.1-46.3); Red Blood Cell Count 3.65 M/mm3 (3.80-5.20); White Blood Cell Count 10.32 K/mm3 (4.00-11.30)
[2021-11-10 14:32] LABS: Bun/Creatinine Ratio 16.5 (12.0-20.0); Calcium, Blood 8.7 mg/dL (8.5-10.1); Creatinine, Blood 1.03 mg/dL (0.40-1.00); Potassium, Blood 4.7 mmol/L (3.5-5.5)
== END ==
LOC: LAB 14:20 → LAB SHORT 14:20
PROVIDERS: Physician Assistant Surgical
DX: R06.00 Dyspnea, unspecified (principal)
CPT/HCPCS: 80048; 83880; 84484; 85025; 85379

== ENCOUNTER 2021-12-11 01:07 | Inpatient (IN) | payer OTHER ==
[~2021-12-11] VITALS: Ht 167.6 cm; Wt 128.5 kg
[2021-12-11 02:04] LABS: BASOPHILS ABSOLUTE AUTO 0.06 K/mm3 (0.00-0.23); BASOPHILS PERCENT AUTO 1 % (0-2); EOSINOPHILS ABSOLUTE AUTO 0.25 K/mm3 (0.00-0.68); EOSINOPHILS PERCENT AUTO 2 % (0-6); Hematocrit 33.7 % (33.0-51.0); Hemoglobin 10.5 g/dL (11.5-16.0); IMMATURE GRAN ABSOLUTE AUTO 0.07 K/mm3 (0.00-0.10); IMMATURE GRAN PERCENT AUTO 1 % (0-1); LYMPHOCYTES ABSOLUTE AUTO 1.87 K/mm3 (0.84-5.20); LYMPHOCYTES PERCENT AUTO 16 % (21-46); MONOCYTES ABSOLUTE AUTO 0.88 K/mm3 (0.16-1.47); MONOCYTES PERCENT AUTO 8 % (4-13); Mean Corpuscular HGB 29.4 pg (26.0-34.0); Mean Corpuscular HGB Conc 31.2 g/dL (31.5-36.5); Mean Corpuscular Volume 94 fL (80-100); Mean Platelet Volume 11.3 fL (9.1-12.4); NEUTROPHILS ABSOLUTE AUTO 8.38 K/mm3 (1.96-9.15); NEUTROPHILS PERCENT AUTO 73 % (41-73); Platelet Count 348 K/mm3 (150-400); RDW Coefficient Variation 16.9 % (11.7-14.2); RDW Standard Deviation 58.3 fL (35.1-46.3); Red Blood Cell Count 3.57 M/mm3 (3.80-5.20); White Blood Cell Count 11.51 K/mm3 (4.00-11.30)
[2021-12-11 02:24] LABS: Albumin, Blood 3.6 g/dL (3.4-5.0); Albumin/Globulin Ratio 0.9 (0.8-1.8); Bilirubin, Total 0.5 mg/dL (0.1-1.0); Bun/Creatinine Ratio 29.2 (12.0-20.0); Calcium, Blood 9.2 mg/dL (8.5-10.1); Creatinine, Blood 1.06 mg/dL (0.40-1.00); Globulin, Blood 4.2 g/dL (2.2-4.0); Potassium, Blood 4.7 mmol/L (3.5-5.5); Total Protein, Blood 7.8 g/dL (6.4-8.2)
[2021-12-11 02:35] LABS: Prothrombin Time Results 15.3 Sec (9.7-11.5)
[2021-12-11] MEDS ORDERED: SPIRONOLACTONE25 MG PO (02:46)
[2021-12-11] MEDS ORDERED: FLUC150A PO (02:47)
[2021-12-11] MEDS ORDERED: TORSE20 PO (02:47)
[2021-12-11] MEDS ORDERED: COREG25 MG PO (02:48)
[2021-12-11] MEDS ORDERED: POT CHLORIDE 10 MEQ (02:48)
[2021-12-11 04:53] LABS: Anti-Xa UFH, PHA Monitoring <0.10 IU/mL
[2021-12-11 06:08] LABS: BASOPHILS ABSOLUTE AUTO 0.06 K/mm3 (0.00-0.23); BASOPHILS PERCENT AUTO 1 % (0-2); EOSINOPHILS ABSOLUTE AUTO 0.04 K/mm3 (0.00-0.68); EOSINOPHILS PERCENT AUTO 0 % (0-6); Hematocrit 34.6 % (33.0-51.0); Hemoglobin 10.8 g/dL (11.5-16.0); IMMATURE GRAN PERCENT AUTO 1 % (0-1); LYMPHOCYTES ABSOLUTE AUTO 1.02 K/mm3 (0.84-5.20); LYMPHOCYTES PERCENT AUTO 9 % (21-46); MONOCYTES ABSOLUTE AUTO 0.23 K/mm3 (0.16-1.47); MONOCYTES PERCENT AUTO 2 % (4-13); Mean Corpuscular HGB 29.3 pg (26.0-34.0); Mean Corpuscular HGB Conc 31.2 g/dL (31.5-36.5); Mean Corpuscular Volume 94 fL (80-100); Mean Platelet Volume 11.2 fL (9.1-12.4); NEUTROPHILS ABSOLUTE AUTO 10.34 K/mm3 (1.96-9.15); NEUTROPHILS PERCENT AUTO 88 % (41-73); Platelet Count 361 K/mm3 (150-400); RDW Coefficient Variation 17.1 % (11.7-14.2); Red Blood Cell Count 3.69 M/mm3 (3.80-5.20); White Blood Cell Count 11.79 K/mm3 (4.00-11.30)
[2021-12-11 06:36] LABS: Bun/Creatinine Ratio 29.9 (12.0-20.0); Calcium, Blood 9.3 mg/dL (8.5-10.1); Creatinine, Blood 1.07 mg/dL (0.40-1.00); Potassium, Blood 5.1 mmol/L (3.5-5.5)
--- NOTE | 2021-12-11 11:00 | NUR ---
PT ARRIVAL... PT ARRIVED ON THE UNIT VIA W/C, THE PT WAS ABLE TO SELF TRANSFER FROM THE W/C TO THE BED WITH MIN ASSIST. THE PT WAS ON RA WITH O2 SATS >90% L/S COARSE T/O DIM IN THE BASES. THE PT IS IN SR IN THE 80'S-90'S, BP STABLE, NO EDEMA NOTED ON ASSESSMENT. THE PT IS ON A HEPARIN DRIP RUNNING PER ORDERS. WILL CONTINUE TO MONITOR.
[2021-12-11] MEDS ORDERED: METF500C PO (12:05)
[2021-12-11] MEDS ORDERED: ATOR40TA PO (12:07)
[2021-12-11] MEDS ORDERED: PANT40 PO (12:11)
[2021-12-11] MEDS ORDERED: Bisoprolol Fumar5 MG PO (12:14)
[2021-12-11] MEDS ORDERED: MELATONIN5 M1 PO (12:16)
[2021-12-11] MEDS ORDERED: MIRAPEX0.75 M1 PO (12:16)
--- NOTE | 2021-12-11 12:29 | NUR ---
Echocardiogram completed.
--- NOTE | 2021-12-11 15:01 | NUR ---
PT UPDATE.... PROVIDER AT THE BEDSIDE TO ASSESS THE PT. THE PT AND WERE UPDATED ON THE PT'S CURRENT CONDITION AND THE PLAN OF CARE. THE PT WAS CHANGED FROM NPO TO AN ADA/CARDIAC DIET, THE PT ATE 100% OF HER MEAL TRAY, THEN REQUESTED A SANDWICH. ONCE THAT WAS EATEN THE PT REQUESTED HER DAUGHTER TO GO TO [employer] AND BRING HER FOOD. THIS RN EDUCATED THE PT ON THE IMPORTANCE OF A PROPER DIET WITH HER DIABETES AND CARDIAC ISSUES. THE PT STATED "YEAH YEAH BUT I DON'T EAT IT EVERY DAY SO ITS FINE THEN." WHEN THIS RN WAS ASKING THE PT ABOUT HOW SHE MANAGES HER DIABETS AT HOME AND HER CBGs SHE STATED THAT SHE WAS SUPPOSED TO CHECK HER CBGs 4 TIMES A DAY BUT "I DON'T CHECK IT THAT OFTEN BECAUSE I CAN'T OPEN THE STRIP BOTTLE ALL THE TIME AND I HAVE CLUMSY FINGERS." THIS RN PROVIDED VERBAL EDUCATION ON THE IMPORTANCE OF MANAGING HER DIABETES, AND HOW UNCONTROLLED DIABETES CAN HARM THE FERNANDEZ AND THE REST OF THE BODY. THE PT VERBALZIED HER UNDERSTANDING AND ROLLED HER EYES AT THIS RN. WILL CONTINUE TO MONITOR.
--- NOTE | 2021-12-11 18:32 | NUR ---
SHIFT SUMMARY.... NO ACUTE NEGATIVE CHANGES NOTED THIS SHIFT, THE PT'S VS HAVE BEEN STABLE. PT HAS BEEN ON RA WITH O2 SATS>95%. PT DENIES CHEST PAIN. THE HEPARIN DRIP WAS D/C'd AND THE PT WAS RESTARTED ON CUMADIN. THE PT HAS BEEN A SBA TO THE BS. THE PT IS ON A 1500MLS FLUID RESTRICTION. REPORT CALLED TO MEDICAL FLOOR RN. ALL OF PT'S BELONINGS PACKED AND SENT WITH THE PT.
--- NOTE | 2021-12-12 02:43 | NUR ---
12/11/21 2140 PT LYING IN BED, REPORTS EPIGASTRIC PAIN OF 5/10. REPORTS SOB THAT INCREASES WITH EXERTION, ON RA AT 97%. TELE NSR AT 84 PER TELE STRIP. WILL MEDICATE PT ORDERED. NO OTHER APPARENT SIGNS OF DISTRESS. CALL LIGHT IS IN REACH.
--- NOTE | 2021-12-12 02:44 | NUR ---
0000 PT LYING IN BED, EYES CLOSED, APPEARS TO BE RESTING. BREATHING IS EVEN, UNLABORED. NO APPARENT SIGNS OF DISTRESS. CALL LIGHT IS IN REACH.
--- NOTE | 2021-12-12 04:24 | NUR ---
0200 PT LYING IN BED, EYES CLOSED, APPEARS TO BE RESTING. BREATHING IS EVEN, UNLABORED. NO APPARENT SIGNS OF DISTRESS. CALL LIGHT IS IN REACH.
--- NOTE | 2021-12-12 04:25 | NUR ---
PT LYING IN BED, AWAKE, LAB IN ROOM. NO APPARENT SIGNS OF DISTRESS. CALL LIGHT IS IN REACH.
--- NOTE | 2021-12-12 04:26 | NUR ---
PT IS AAO X 4, ON RA AT 97%. PT REPORTS SOB THAT INCREASES WITH EXERTION. TRACE EDEMA IN LE'S. BS WAS 277. N/T L SIDE, NOT NEW, HX CVA. LUNGS CLEAR BUT DIMINISHED.
[2021-12-12 05:16] LABS: International Normalized Ratio 1.46
[2021-12-12 05:29] LABS: Albumin, Blood 3.4 g/dL (3.4-5.0); Anion Gap 7 mmol/L (6-16); Blood Urea Nitrogen 60 mg/dL (8-24); Bun/Creatinine Ratio 40.8 (12.0-20.0); CO2, Blood 26 mmol/L (21-32); Chloride, Blood 103 mmol/L (98-108); Creatinine, Blood 1.47 mg/dL (0.40-1.00); Glomerular Filtration Rate 36 (60-); Glucose, Blood 211 mg/dL (70-99); Magnesium, Blood 2.5 mg/dL (1.6-2.4); Phosphorus, Blood 4.2 mg/dL (2.5-4.9); Potassium, Blood 4.6 mmol/L (3.5-5.5); Sodium, Blood 136 mmol/L (136-145)
--- NOTE | 2021-12-12 06:15 | NUR ---
PT LYING IN BED, EYES CLOSED, APPEARS TO BE RESTING. BREATHING IS EVEN, UNLABORED. NO APPARENT SIGNS OF DISTRESS. CALL LIGHT IS IN REACH. NO OTHER CHANGES THIS SHIFT.
--- NOTE | 2021-12-12 19:53 | NUR ---
SUMMARY- PT A/O INDEPENDANT IN ROOM. CONT PULSE OX. LUNGS WITH EXP WHEEZE. OCC DYAPNEA ON EXERTION. ALB NEB CALLED THIS AM HELPFUL FOR WHEEZE. PT HAS STRONG PRODUCTIVE COUGH, ENCOURAGING PULM TOILET. SPUTUM IS TENATIOUS AND RUST COLOR. CALLED DR FOR COMPASIN DM. PT IS BEING DIURESISED. CONT PULSE OX FOR HX SLEEP APNEA. DESAT THIS AM WHILE SPEEPING 79%, RECOVERS SATS QUICKLY. RT AWARE OF HS AND WILL F/U WITH SET UP OF CPAP TONIGHT.
[2021-12-13 05:09] LABS: BASOPHILS ABSOLUTE AUTO 0.07 K/mm3 (0.00-0.23); BASOPHILS PERCENT AUTO 1 % (0-2); EOSINOPHILS ABSOLUTE AUTO 0.29 K/mm3 (0.00-0.68); EOSINOPHILS PERCENT AUTO 3 % (0-6); Hematocrit 32.3 % (33.0-51.0); Hemoglobin 10.1 g/dL (11.5-16.0); IMMATURE GRAN ABSOLUTE AUTO 0.06 K/mm3 (0.00-0.10); IMMATURE GRAN PERCENT AUTO 1 % (0-1); LYMPHOCYTES ABSOLUTE AUTO 2.29 K/mm3 (0.84-5.20); LYMPHOCYTES PERCENT AUTO 24 % (21-46); MONOCYTES ABSOLUTE AUTO 0.82 K/mm3 (0.16-1.47); MONOCYTES PERCENT AUTO 9 % (4-13); Mean Corpuscular HGB 29.4 pg (26.0-34.0); Mean Corpuscular HGB Conc 31.3 g/dL (31.5-36.5); Mean Corpuscular Volume 94 fL (80-100); Mean Platelet Volume 11.8 fL (9.1-12.4); NEUTROPHILS ABSOLUTE AUTO 5.85 K/mm3 (1.96-9.15); NEUTROPHILS PERCENT AUTO 63 % (41-73); NRBC ABSOLUTE 0.08 K/mm3 (0.00-0.02); NRBC Auto 0.9 /100 WBC (0.0-0.2); Platelet Count 310 K/mm3 (150-400); RDW Coefficient Variation 16.9 % (11.7-14.2); Red Blood Cell Count 3.43 M/mm3 (3.80-5.20); White Blood Cell Count 9.38 K/mm3 (4.00-11.30)
[2021-12-13 05:24] LABS: International Normalized Ratio 2.07; Prothrombin Time Results 20.7 Sec (9.7-11.5)
[2021-12-13 05:43] LABS: Albumin, Blood 3.4 g/dL (3.4-5.0); Albumin/Globulin Ratio 0.9 (0.8-1.8); Bilirubin, Total 0.6 mg/dL (0.1-1.0); Calcium, Blood 9.1 mg/dL (8.5-10.1); Creatinine, Blood 1.38 mg/dL (0.40-1.00); Globulin, Blood 3.9 g/dL (2.2-4.0); Potassium, Blood 3.9 mmol/L (3.5-5.5); Total Protein, Blood 7.3 g/dL (6.4-8.2)
--- NOTE | 2021-12-13 06:28 | NUR ---
SHIFT SUMMARY PT A/O X 4, UP INDEPENDENTLY IN ROOM, LUNGS WITH EXP WHEEZES NOTED, SOB WITH ACTIVITY. CONGESTED, STRONG COUGH NOTED, MED PAR MAR. PT STATES SHE'S SUPPOSED TO WEAR A CPAP AT HOME BUT LOST HER MACHINE, ORDER RECEIVED FOR PT TO USE CPAP WHILE IN HOSPITAL, PT COMPA WELL. VSS, ANTICIPATE D/C WHEN MEDICALLY STABLE.
--- NOTE | 2021-12-13 10:21 | NUR ---
BP 98/64, PULSE 68-76, HELD IV LASIX AND METOPROLOL SUCC. NOTIFIED DR STEPHENS WHO INSTRUCTED TO GIVE METOPROLOL AND HOLD LASIX BUT TO GIVE PO TORSEMIDE AND RECHECK BP.
[2021-12-13] MEDS ORDERED: Nicoderm Cq1 EAC1 TOP (13:10)
[2021-12-13] MEDS ORDERED: ROBITUSSIN DM PO (13:11)
[2021-12-13] MEDS ORDERED: ALBU90OI INH (13:14)
--- NOTE | 2021-12-13 15:21 | NUR ---
PT DISCHARGED 1445 WITH DC INSTRUCITONS. BELONGINGS SENT HOME WITH PT INCLUDING PHONE AND FAYE. PT TRANSPORTED OUT TO PRIVATE CAR WITH STAFF [facility] IN WHEELCHAIR.
== END 2021-12-13 14:38 | disposition home or self-care (01) | DRG 280 ==
LOC: ER 01:07 → ERHOLD 04:41 → MEDS 04:41 → ICUE 10:35 → MEDS 18:48
PROVIDERS: Family Medicine; Internal Medicine; Pharmacist Pharmacotherapy; Student in an Organized Health Care Education/Training Program; ADMIT Internal Medicine
DX: I21.4 Non-ST elevation (NSTEMI) myocardial infarction (principal); I50.33 Acute on chronic diastolic (congestive) heart failure; I48.20 Chronic atrial fibrillation, unspecified; I13.0 Hypertensive heart and chronic kidney disease with heart failure and stage 1 through stage 4 chronic kidney disease, or unspecified chronic kidney disease; N17.9 Acute kidney failure, unspecified; Z68.42 Body mass index [BMI] 45.0-49.9, adult; J44.1 Chronic obstructive pulmonary disease with (acute) exacerbation; I69.354 Hemiplegia and hemiparesis following cerebral infarction affecting left non-dominant side; E11.22 Type 2 diabetes mellitus with diabetic chronic kidney disease; N18.31 Chronic kidney disease, stage 3a; G89.29 Other chronic pain; E66.9 Obesity, unspecified; G47.33 Obstructive sleep apnea (adult) (pediatric); G25.81 Restless legs syndrome; M54.50 Low back pain, unspecified; K21.9 Gastro-esophageal reflux disease without esophagitis; E78.5 Hyperlipidemia, unspecified; F17.210 Nicotine dependence, cigarettes, uncomplicated; E11.42 Type 2 diabetes mellitus with diabetic polyneuropathy; D63.1 Anemia in chronic kidney disease; Z87.01 Personal history of pneumonia (recurrent); Z86.16 Personal history of COVID-19; Z71.6 Tobacco abuse counseling; Z88.8 Allergy status to other drugs, medicaments and biological substances; Z79.01 Long term (current) use of anticoagulants; Z79.899 Other long term (current) drug therapy; Z79.4 Long term (current) use of insulin; Z79.82 Long term (current) use of aspirin; Z91.041 Radiographic dye allergy status; Z87.440 Personal history of urinary (tract) infections; Z91.048 Other nonmedicinal substance allergy status; Z79.2 Long term (current) use of antibiotics; Z98.890 Other specified postprocedural states; Z90.49 Acquired absence of other specified parts of digestive tract; Z99.81 Dependence on supplemental oxygen
CPT/HCPCS: 36415; 36416; 71045; 80048; 80053; 80069; 82947; 83735; 83880; 84145; 84484; 85025; 85379; 85520; 85610; 93005; 93010; 93306; 93970; 94640; 94660; 94664; 94760; 94762; 96365; 96366; 96375; 99285-25; A9270; J1644; J1815; J1940; J2405; J2930; J7030

== ENCOUNTER 2022-02-01 22:11 | Inpatient (IN) | payer OTHER ==
[~2022-02-01] VITALS: Ht 175.3 cm; Wt 120.9 kg
[~2022-02-01 22:11] MED LIST changes: +Bisoprolol Fumar5 MG PO; +COREG25 MG PO; +FLUC150A PO; +MELATONIN5 M1 PO; +Nicoderm Cq1 EAC1 TOP; +POT CHLORIDE 10 MEQ; +ROBITUSSIN DM PO; +SPIRONOLACTONE25 MG PO; +TORSE20 PO
[2022-02-01 23:03] LABS: BASOPHILS PERCENT AUTO 1 % (0-2); EOSINOPHILS ABSOLUTE AUTO 0.24 K/mm3 (0.00-0.68); EOSINOPHILS PERCENT AUTO 2 % (0-6); Hematocrit 38.5 % (33.0-51.0); Hemoglobin 12.3 g/dL (11.5-16.0); IMMATURE GRAN ABSOLUTE AUTO 0.05 K/mm3 (0.00-0.10); IMMATURE GRAN PERCENT AUTO 0 % (0-1); LYMPHOCYTES ABSOLUTE AUTO 3.22 K/mm3 (0.84-5.20); LYMPHOCYTES PERCENT AUTO 28 % (21-46); MONOCYTES ABSOLUTE AUTO 1.05 K/mm3 (0.16-1.47); MONOCYTES PERCENT AUTO 9 % (4-13); Mean Corpuscular HGB 29.4 pg (26.0-34.0); Mean Corpuscular HGB Conc 31.9 g/dL (31.5-36.5); Mean Corpuscular Volume 92 fL (80-100); Mean Platelet Volume 11.4 fL (9.1-12.4); NEUTROPHILS PERCENT AUTO 60 % (41-73); Platelet Count 356 K/mm3 (150-400); RDW Coefficient Variation 15.9 % (11.7-14.2); RDW Standard Deviation 52.5 fL (35.1-46.3); Red Blood Cell Count 4.19 M/mm3 (3.80-5.20); White Blood Cell Count 11.66 K/mm3 (4.00-11.30)
[2022-02-01 23:15] LABS: Alanine Aminotransfer (ALT/SGP 17 U/L (12-78); Albumin, Blood 3.4 g/dL (3.4-5.0); Albumin/Globulin Ratio 0.8 (0.8-1.8); Alk Phos 107 U/L (50-136); Anion Gap 7 mmol/L (6-16); Aspartate Aminotrans (AST/SGOT 14 U/L (12-37); Bilirubin, Total 0.4 mg/dL (0.1-1.0); Blood Urea Nitrogen 20 mg/dL (8-24); Bun/Creatinine Ratio 16.4 (12.0-20.0); CO2, Blood 27 mmol/L (21-32); Chloride, Blood 106 mmol/L (98-108); Creatinine, Blood 1.22 mg/dL (0.40-1.00); Ethanol (Alcohol), Blood, Med <3 mg/dL; Glomerular Filtration Rate 50 (60-); Glucose, Blood 290 mg/dL (70-99); Potassium, Blood 4.1 mmol/L (3.5-5.5); Sodium, Blood 140 mmol/L (136-145); Total Protein, Blood 7.4 g/dL (6.4-8.2)
[2022-02-01 23:47] LABS: Source, Urine Straight Cath
[2022-02-01 23:50] LABS: Bilirubin, Urine Neg (Neg); Blood, Urine 3+ (Neg); Glucose Qualitative, Urine Neg (Neg); Ketones, Urine Neg (Neg); Leukocyte Esterase, Urine 3+ (Neg); Nitrite, Urine Neg (Neg); Protein, Urine 3+ (Neg); Specific Gravity, Urine 1.015 (1.003-1.022); Urobilinogen, Urine NORM (Normal)
[2022-02-01 23:53] LABS: Appearance, Urine Cloudy (Clear); Color, Urine Yellow (P-Yellow)
[2022-02-02] LABS: Bacteria Many /hpf; Squamous Epithelial Cells Not Seen /hpf (Few); White Blood Cells, Urine TNTC /hpf (0-5)
[2022-02-02 00:07] LABS: U Amphetamine Screen Not Detected; U Barbituate Screen Not Detected; U Benzodiazapine Screen Not Detected; U Cocaine Screen Not Detected; U Methadone Screen Not Detected; U Methamphetamine Screen Not Detected; U Opiates Screen DETECTED
[2022-02-02 00:08] LABS: U Buprenorphine Screen Not Detected; U Cannabinoids Screen Not Detected; U Oxycodone Screen Not Detected; U Phencyclidine Screen Not Detected; U Propoxyphene Screen Not Detected
[2022-02-02 01:04] LABS: International Normalized Ratio 3.34; Prothrombin Time Results 32.4 Sec (9.7-11.5)
[2022-02-02 02:26] LABS: PCO2 Arterial 43.5 mmHg (35-45); PO2 Arterial 66.6 mmHg (80-100)
[2022-02-02 03:41] LABS: Source, Urine Foley catheter
[2022-02-02 03:43] LABS: Bilirubin, Urine Neg (Neg); Blood, Urine 2+ (Neg); Glucose Qualitative, Urine Neg (Neg); Ketones, Urine Neg (Neg); Leukocyte Esterase, Urine 3+ (Neg); Nitrite, Urine Pos (Neg); Protein, Urine 3+ (Neg); Urobilinogen, Urine NORM (Normal)
[2022-02-02 03:44] LABS: Appearance, Urine Hazy (Clear); Color, Urine Yellow (P-Yellow)
[2022-02-02 03:50] LABS: Bacteria Many /hpf; Red Blood Cells, Urine 0-2 /hpf (0-2); Squamous Epithelial Cells Not Seen /hpf (Few); White Blood Cells, Urine TNTC /hpf (0-5)
--- NOTE | 2022-02-02 04:39 | NUR ---
RECEIVED REPORT FROM LÓPEZ RN IN ED AT 0235. PT ARRIVED TO ICU AT 0250. PT IS ALERT AND ORIENTED TO SELF, EVENT, AND CURRENT MONTH. SHE DOES NOT KNOW THE EVENTS THAT BROUGHT HER TO THE HOSPITAL. SHE IS SOMNOLENT DURING THE COVERSATION AND WILL HAVE TO BE AROUSED OCCASIONALLY. SHE IS ABLE TO MOVE INDEPENDENT IN BED. AFEBRILE. SHE IS ON ROOM AIR, LUNGS CLEAR THROUGHOUT, SPO2 >92% ON MONITOR. STATES SHE USES CPAP AT HOME, BUT WITHOUT OXYGEN. HR IS AFIB, RATE IN 90-110'S. BP STABLE. BT PRESENT X4, SOFT AND ROUND, NO TENDERNESS. LOYOLA PLACED AND DRAINING CLOUDY, YELLOW URINE; UA SENT PER PROTOCOL. SKIN IS OVERALL C/D/I, 20G IV TO LEFT AC, SALINE LOCKED. ORDERS REVIEWED, WILL TREAT PRESCRIBED.
--- NOTE | 2022-02-02 05:53 | NUR ---
ONCE PT WAS SETTLED IN ROOM, SHE SLEPT THE REMAINDER OF THE SHIFT. HR CONTINUES AFIB, RATE IN 90-110'S. BP STABLE, MAP >65. SHE REMAINS ON ROOM AIR, SPO2 >92%. ONLY 150ML URINE OUT FROM CATHETER. SHE WAS ABLE TO SWALLOW WATER WELL WITH NO SIGNS OR SYMPTOMS OF ASPIRATION, COUGH AND GAG REFLEX PRESENT. WILL REPORT TO ONCOMING SHIFT WHEN AVAILABLE.
--- NOTE | 2022-02-02 06:23 | NUR ---
SPOKE WITH , MIRELLA, AND UPDATED ON PT STATUS. SPOKE WITH HIM RE: PT'S HOME CPAP MACHINE AND HE STATED SHE DOES NOT HAVE ONE OF YET, BUT SHE IS SUPPOSED TO BE GETTING ONE SOON. HOWEVER, SPO2 STAYED ABOVE 93% WITHOUT OXYGEN.
[2022-02-02 06:33] LABS: BASOPHILS ABSOLUTE AUTO 0.08 K/mm3 (0.00-0.23); BASOPHILS PERCENT AUTO 1 % (0-2); EOSINOPHILS PERCENT AUTO 3 % (0-6); Hematocrit 39.3 % (33.0-51.0); Hemoglobin 12.3 g/dL (11.5-16.0); IMMATURE GRAN ABSOLUTE AUTO 0.03 K/mm3 (0.00-0.10); IMMATURE GRAN PERCENT AUTO 0 % (0-1); LYMPHOCYTES ABSOLUTE AUTO 2.94 K/mm3 (0.84-5.20); LYMPHOCYTES PERCENT AUTO 32 % (21-46); MONOCYTES ABSOLUTE AUTO 0.98 K/mm3 (0.16-1.47); MONOCYTES PERCENT AUTO 11 % (4-13); Mean Corpuscular HGB 28.8 pg (26.0-34.0); Mean Corpuscular HGB Conc 31.3 g/dL (31.5-36.5); Mean Corpuscular Volume 92 fL (80-100); Mean Platelet Volume 10.8 fL (9.1-12.4); NEUTROPHILS ABSOLUTE AUTO 4.85 K/mm3 (1.96-9.15); NEUTROPHILS PERCENT AUTO 53 % (41-73); Platelet Count 314 K/mm3 (150-400); RDW Coefficient Variation 15.7 % (11.7-14.2); RDW Standard Deviation 53.2 fL (35.1-46.3); Red Blood Cell Count 4.27 M/mm3 (3.80-5.20); White Blood Cell Count 9.18 K/mm3 (4.00-11.30)
[2022-02-02 06:54] LABS: Albumin, Blood 3.1 g/dL (3.4-5.0); Albumin/Globulin Ratio 0.8 (0.8-1.8); Bilirubin, Total 0.4 mg/dL (0.1-1.0); Bun/Creatinine Ratio 20.9 (12.0-20.0); Creatinine, Blood 1.1 mg/dL (0.40-1.00); Globulin, Blood 3.8 g/dL (2.2-4.0); Potassium, Blood 3.9 mmol/L (3.5-5.5); Total Protein, Blood 6.9 g/dL (6.4-8.2)
--- NOTE | 2022-02-02 08:00 | NUR ---
ASSUMED CARE OF PT, REPORT RCV'D FROM JEFFREY Randall RN. PT ALERT AND ORIENTED, PLEASANT AND COOPERATIVE WITH CARE. PT REPORTS BLE WEAKNESS THAT "SEEMS BETTER", ABLE TO REPOSITION SELF IN BED AND PUSH UP IN BED USING LEGS. PT/OT CONSULTED. AFIB WITH HR 100-110. VSS. PT HAS GOOD APPETITE. LOYOLA CATHETER IN PLACE, WILL REMOVE ASHLEY. SEE FULL SHIFT ASSESSMENT.
--- NOTE | 2022-02-02 10:30 | NUR ---
PT CONVERTED TO SINUS RHYTHM HR 80-83
--- NOTE | 2022-02-02 14:15 | NUR ---
PT UP TO CHAIR, WALKING INDEPENDENTLY WITH CANE. LOYOLA CATHETER REMOVED. VSS.
[2022-02-02] MEDS ORDERED: CEPH500 PO (15:46)
[2022-02-02] MEDS ORDERED: VISBIOME 112.51 EACH PO (15:47)
--- NOTE | 2022-02-02 17:14 | NUR ---
IV'S REMOVED, PT DRESSED INDEPENDENTLY. REVIEWED DISCHARGE INSTRUCTIONS AND NEW PRESCRIPTIONS. REVIEWED CURRENT PRESCRIBED MEDICATION DOSAGES. PT WHEELED TO FRONT ENTRANCE AND LOADED INTO PRIVATE VEHICLE WITH AND SON. FAMILY DENIES ADDITIONAL QUESTIONS, AGREES TO RETURN TO ED IF NEW/WORSE SYMPTOMS. PT WEARING HER OWN CLOTHING, TOP DENTURES PLACED IN MOUTH AND 2 GOLD NECKLACES ON NECK.
== END 2022-02-02 16:31 | disposition home or self-care (01) | DRG 871 ==
LOC: ER 22:11 → ICUW 02-02 02:06 → ICUE 02-02 02:40 → ER 02-02 02:55 → ICUE 02-02 03:24
PROVIDERS: Emergency Medicine; ADMIT Internal Medicine
DX: A41.9 Sepsis, unspecified organism (principal); G93.41 Metabolic encephalopathy; N39.0 Urinary tract infection, site not specified; I50.32 Chronic diastolic (congestive) heart failure; J44.9 Chronic obstructive pulmonary disease, unspecified; I48.91 Unspecified atrial fibrillation; I95.9 Hypotension, unspecified; M54.50 Low back pain, unspecified; E11.65 Type 2 diabetes mellitus with hyperglycemia; G89.29 Other chronic pain; K21.9 Gastro-esophageal reflux disease without esophagitis; E78.5 Hyperlipidemia, unspecified; E11.42 Type 2 diabetes mellitus with diabetic polyneuropathy; I11.0 Hypertensive heart disease with heart failure; F17.210 Nicotine dependence, cigarettes, uncomplicated; Z91.041 Radiographic dye allergy status; Z91.09 Other allergy status, other than to drugs and biological substances; Z79.01 Long term (current) use of anticoagulants; Z79.82 Long term (current) use of aspirin; Z79.890 Hormone replacement therapy; Z79.4 Long term (current) use of insulin; Z79.899 Other long term (current) drug therapy; Z98.890 Other specified postprocedural states; Z86.73 Personal history of transient ischemic attack (TIA), and cerebral infarction without residual deficits; Z90.49 Acquired absence of other specified parts of digestive tract
CPT/HCPCS: 36415; 36416; 36600; 51702; 71045; 80053; 81001; 82803; 82947; 83605; 83880; 84484; 85025; 85610; 87040; 87077; 87086; 87186; 93005; 93010; 96374; 97110; 97116; 97161; 99285-25; A9270; G0480; J0696; J1815

== ENCOUNTER → 2022-02-13 | Outpatient (CLI) | payer OTHER ==
[~2022-02-13] MED LIST changes: +VISBIOME 112.51 EACH PO
== END | disposition home or self-care (01) ==
LOC: LAB SHORT 16:32
DX: R31.9 Hematuria, unspecified (principal)
CPT/HCPCS: 87086

== ENCOUNTER → 2022-03-15 | Outpatient (CLI) | payer OTHER ==
[2022-03-15 12:13] LABS: Source, Urine Clean Catch
[2022-03-15 16:09] LABS: Bacteria Many /hpf; Mucus Light (0-Heavy); Squamous Epithelial Cells Many /hpf (Few); Triple Phosphate Crystals Many /hpf
[2022-03-15 16:10] LABS: Amorphous Light (0-Heavy); Red Blood Cells, Urine 0-2 /hpf (0-2)
== END | disposition home or self-care (01) ==
LOC: LAB SHORT 12:10 → LAB 12:10
PROVIDERS: Family Medicine
DX: N39.0 Urinary tract infection, site not specified (principal); R31.9 Hematuria, unspecified
CPT/HCPCS: 81015; 87077; 87086; 87186; 88108

== ENCOUNTER → 2022-06-18 | Outpatient (CLI) | payer OTHER ==
[2022-06-18 12:55] LABS: BASOPHILS ABSOLUTE AUTO 0.08 K/mm3 (0.00-0.23); BASOPHILS PERCENT AUTO 1 % (0-2); EOSINOPHILS ABSOLUTE AUTO 0.26 K/mm3 (0.00-0.68); EOSINOPHILS PERCENT AUTO 3 % (0-6); Hematocrit 35.3 % (33.0-51.0); Hemoglobin 11.7 g/dL (11.5-16.0); IMMATURE GRAN ABSOLUTE AUTO 0.03 K/mm3 (0.00-0.10); IMMATURE GRAN PERCENT AUTO 0 % (0-1); LYMPHOCYTES PERCENT AUTO 23 % (21-46); MONOCYTES ABSOLUTE AUTO 0.61 K/mm3 (0.16-1.47); MONOCYTES PERCENT AUTO 7 % (4-13); Mean Corpuscular HGB 30.5 pg (26.0-34.0); Mean Corpuscular HGB Conc 33.1 g/dL (31.5-36.5); Mean Corpuscular Volume 92 fL (80-100); Mean Platelet Volume 11.2 fL (9.1-12.4); NEUTROPHILS ABSOLUTE AUTO 6.12 K/mm3 (1.96-9.15); NEUTROPHILS PERCENT AUTO 67 % (41-73); Platelet Count 253 K/mm3 (150-400); RDW Coefficient Variation 14.6 % (11.7-14.2); Red Blood Cell Count 3.83 M/mm3 (3.80-5.20)
[2022-06-18 13:01] LABS: Bun/Creatinine Ratio 16.2 (12.0-20.0); Calcium, Blood 8.9 mg/dL (8.5-10.1); Creatinine, Blood 0.99 mg/dL (0.40-1.00); Potassium, Blood 3.9 mmol/L (3.5-5.5)
== END | disposition home or self-care (01) ==
LOC: LAB 12:51 → LAB SHORT 12:51
PROVIDERS: Family Medicine
DX: R06.00 Dyspnea, unspecified (principal)
CPT/HCPCS: 80048; 83880; 84484; 85025

== ENCOUNTER 2022-07-19 16:32 | Emergency (ER) | payer OTHER ==
[~2022-07-19] VITALS: Ht 175.3 cm; Wt 122.5 kg
[2022-07-19 17:50] LABS: BASOPHILS ABSOLUTE AUTO 0.07 K/mm3 (0.00-0.23); BASOPHILS PERCENT AUTO 1 % (0-2); EOSINOPHILS ABSOLUTE AUTO 0.14 K/mm3 (0.00-0.68); EOSINOPHILS PERCENT AUTO 1 % (0-6); Hematocrit 40.1 % (33.0-51.0); IMMATURE GRAN ABSOLUTE AUTO 0.06 K/mm3 (0.00-0.10); IMMATURE GRAN PERCENT AUTO 1 % (0-1); LYMPHOCYTES ABSOLUTE AUTO 1.81 K/mm3 (0.84-5.20); LYMPHOCYTES PERCENT AUTO 14 % (21-46); MONOCYTES ABSOLUTE AUTO 0.83 K/mm3 (0.16-1.47); MONOCYTES PERCENT AUTO 7 % (4-13); Mean Corpuscular HGB 30.3 pg (26.0-34.0); Mean Corpuscular HGB Conc 32.4 g/dL (31.5-36.5); Mean Corpuscular Volume 94 fL (80-100); Mean Platelet Volume 10.9 fL (9.1-12.4); NEUTROPHILS ABSOLUTE AUTO 9.66 K/mm3 (1.96-9.15); NEUTROPHILS PERCENT AUTO 77 % (41-73); Platelet Count 355 K/mm3 (150-400); RDW Coefficient Variation 15.9 % (11.7-14.2); RDW Standard Deviation 54.9 fL (35.1-46.3); Red Blood Cell Count 4.29 M/mm3 (3.80-5.20); White Blood Cell Count 12.57 K/mm3 (4.00-11.30)
[2022-07-19 18:34] LABS: Albumin, Blood 3.9 g/dL (3.4-5.0); Albumin/Globulin Ratio 0.9 (0.8-1.8); Bun/Creatinine Ratio 22.3 (12.0-20.0); Calcium, Blood 9.6 mg/dL (8.5-10.1); Creatinine, Blood 0.81 mg/dL (0.40-1.00); Globulin, Blood 4.2 g/dL (2.2-4.0); Potassium, Blood 4.2 mmol/L (3.5-5.5); Total Protein, Blood 8.1 g/dL (6.4-8.2)
[2022-07-19 20:56] LABS: Source, Urine Clean Catch
[2022-07-19 20:59] LABS: Bilirubin, Urine Neg (Neg); Blood, Urine Neg (Neg); Glucose Qualitative, Urine 4+ (Neg); Ketones, Urine Neg (Neg); Leukocyte Esterase, Urine Neg (Neg); Nitrite, Urine Neg (Neg); Protein, Urine 3+ (Neg); Urobilinogen, Urine NORM (Normal)
[2022-07-19 21:02] LABS: Appearance, Urine Clear (Clear); Color, Urine Yellow (P-Yellow)
[2022-07-19 21:17] LABS: Amorphous Light (0-Heavy); Bacteria Few /hpf; Mucus Light (0-Heavy); Red Blood Cells, Urine 0-2 /hpf (0-2); Squamous Epithelial Cells Rare /hpf (Few); White Blood Cells, Urine 0-2 /hpf (0-5)
== END 2022-07-19 22:34 | disposition home or self-care (01) ==
LOC: ER 16:32
PROVIDERS: Physician Assistant
DX: R68.83 Chills (without fever) (principal); J44.9 Chronic obstructive pulmonary disease, unspecified; I48.91 Unspecified atrial fibrillation; E78.5 Hyperlipidemia, unspecified; I11.0 Hypertensive heart disease with heart failure; I50.9 Heart failure, unspecified; E11.42 Type 2 diabetes mellitus with diabetic polyneuropathy; F17.210 Nicotine dependence, cigarettes, uncomplicated; Z79.01 Long term (current) use of anticoagulants; Z91.041 Radiographic dye allergy status; Z88.8 Allergy status to other drugs, medicaments and biological substances; Z91.048 Other nonmedicinal substance allergy status; Z79.899 Other long term (current) drug therapy; Z79.4 Long term (current) use of insulin; Z79.82 Long term (current) use of aspirin
CPT/HCPCS: 36415; 80053; 81001; 85025